=== PATIENT | female | born 1935 | race Caucasian/White ===

== ENCOUNTER → 2018-03-14 14:16 | Outpatient (CLI) | payer MEDICARE, OTHER, SELFPAY ==
[2018-03-14 14:43] LABS: Appearance Urine UA CLEAR; Bilirubin Urine UA NEGATIVE (NEGATIVE); Color Urine UA YELLOW; Glucose Urine UA NEGATIVE (Normal); Ketones Urine UA NEGATIVE (NEGATIVE); Leukocyte Esterase Urine UA 1+ (NEGATIVE); Nitrite Urine UA Negative (Negative); Occult Blood Urine UA TRACE-LYSED (Negative); Protein Urine UA NEGATIVE (Negative); Specific Gravity Urine UA 1.015 (1.000-1.035); Urobilinogen Urine UA 0.2 E.U./dL (0.2)
[2018-03-14 14:55] LABS: Bacteria Urine Many (>30); Culture Indicated Urine Specimen Cultured; RBC Urine 0-1/HPF (0-5/HPF); Squamous Epithelial Cell Urine 0-1 /HPF; WBC Urine 1-5/HPF (0-5/HPF)
== END ==
PROVIDERS: PCP Internal Medicine; Visit Provider Internal Medicine
DX: R35.0 Frequency of micturition (principal); R82.90 Unspecified abnormal findings in urine
CPT/HCPCS: 81001; 87077; 87086; 87186

== ENCOUNTER 2018-04-18 11:22 | Emergency (ER) | payer MEDICARE, OTHER, SELFPAY ==
[2018-04-18] VITALS (7 sets, daily range): BP systolic 149–169; BP diastolic 73–92; PULSE 63–83; RESP 12–20; TEMP 37; O2SAT 97–99; BMI 30.9
--- NOTE | 2018-04-18 11:30 | ED.CHESTPAIN ---
HPI - Chest Pain General Chief Complaint: Chest Pain Stated Complaint: Chest Pain Time Seen by Provider: 04/18/18 11:29 Source: patient and RN notes reviewed Mode of arrival: ambulatory Limitations: no limitations History of Present Illness HPI narrative: Patient is a 82-year-old female who per with chest discomfort. She said it started about 45 min ago lasted for about 30 min ago started while she was moving around doing [place] the house. It was nonradiating she denies any heart palpitations or shortness of breath. She does have a history atrial flutter she had 1 episode when she was in [place] she was cardioverted and put on Eliquis. She has no known history of coronary artery disease. She now is feeling much better. MD complaint: chest pain Onset (ago): minute(s) (45) Onset: during exertion Pain radiation: none Relieving factors: nothing Related Data Home Medications Medication Instructions Recorded Confirmed latanoprost [Xalatan] 1 gtt OP HS #0 12/28/11 04/18/18 acetaminophen 500 mg PO Q4H PRN 04/18/18 04/18/18 brimonidine 1 drp OPHTHALMIC (EYE) DIRECTED 04/18/18 04/18/18 clobetasol 1 applic TOPICAL BID 04/18/18 04/18/18 dorzolamide-timolol 1 drp OPHTHALMIC (EYE) DIRECTED 04/18/18 04/18/18 levothyroxine [Synthroid] 150 mcg PO QPM 04/18/18 04/18/18 Previous Rx's Medication Instructions Recorded pramipexole [Mirapex] 2 tab PO HS #180 tab 03/23/17 potassium chloride [Klor-Con M20] 2 tab PO QDAY #180 tab 08/01/17 apixaban [Eliquis] 5 mg PO BID #90 tab 09/18/17 metoprolol succinate 100 mg PO QDAY #90 ter 09/18/17 losartan 100 mg PO QDAY #90 tab 09/25/17 omeprazole 20 mg PO QDAY #90 cap 10/22/17 gabapentin 600 mg tablet 600 mg PO BEDTIME #270 tab 11/22/17 tramadol 50 mg tablet 50 - 100 mg PO TIDP PRN #180 tab 12/10/17 trazodone 100 mg PO HS #180 tab 12/10/17 nitrofurantoin 100 mg PO BID #14 cap 03/14/18 monohydrate/macrocrystals 100 mg capsule Allergies Allergy/AdvReac Type Severity Reaction Status Date / Time lisinopril [LISINOPRIL] Allergy Intermediate ANGIOEDEMA Verified 04/18/18 11:28 oxycodone Allergy Intermediate HIVES Verified 04/18/18 11:28 Penicillins [PENICILLINS] Allergy Intermediate RASH Verified 04/18/18 11:28 Sulfa (Sulfonamide Allergy Mild RASH Verified 04/18/18 11:28 Antibiotics) doxycycline AdvReac Mild PHOTOSENSIT Verified 04/18/18 11:28 IVITY PABA Allergy Intermediate LIP Uncoded 04/18/18 11:28 SWELLING (IN MANY SUN BLOCKS) Review of Systems Review of Systems All systems reviewed & are unremarkable except as noted in HPI and below Constitutional Denies chills, Denies fever(s), Denies lethargy and Denies weakness Eyes Denies change in vision, Denies eye discharge, Denies irritation and Denies loss of vision Cardiovascular Reports as per HPI, Denies dyspnea and Denies dyspnea on exertion Respiratory Denies cough, Denies dyspnea, Denies dyspnea on exertion and Denies wheezing Gastrointestinal Gastrointestinal: Denies abdominal pain, Denies change in bowel habits, Denies diarrhea, Denies nausea and Denies vomiting Genitourinary Denies hematuria, Denies flank pain, Denies urinary incontinence and Denies urinary urgency Musculoskeletal Denies back pain, Denies muscle weakness, Denies numbness and Denies tingling Integumentary/Breasts Denies pruritus, Denies erythema, Denies rash and Denies wounds Neurologic Denies loss of vision, Denies numbness, Denies tingling and Denies weakness Allergic/Immunologic Denies wheezing PFSH Medical History Mixed hyperlipidemia (Chronic 09/02/12) Acquired hypothyroidism (Chronic 05/04/11) Obstructive sleep apnea syndrome (Chronic 05/04/11) Glaucoma (Chronic 05/04/11) Typical atrial flutter (Chronic 07/31/17) Hypertension (Chronic) Surgical History History of knee replacement (Resolved) History of nephrectomy (Resolved) History of total mastectomy (Resolved 1998) Status post laminectomy (Resolved) Status post vaginal hysterectomy (Resolved) Family History Sister Family history of breast cancer Sister Family history of colon cancer Sister Family history of ovarian cancer Family/Other Family history of colon cancer Social History marital status: number of children: 3 household members: spouse lives independently: Yes caregiver/support person: Yes (Clay Artist/Garderner) housing: house pets and animals: Yes education level: college (4+ years) occupational status: other (Retired) 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[employer] j[employer]ana/taoist: None travel history: over 6 months ago ([place], [place]) 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, 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) Smoking Status: Never smoker Tobacco: How many years used: 0 quit status: quit date established (Never Started) second hand exposure: No alcohol intake: current (Glass of wine at dinner on occasion.) substance use type: does not use Exam Initial Vital Signs Initial Vital Signs: Vital Signs Temperature 98.6 F 04/18/18 11:28 Pulse Rate 78 04/18/18 11:28 Respiratory Rate 20 04/18/18 11:28 Blood Pressure 159/84 H 04/18/18 11:28 Pulse Oximetry 97 04/18/18 11:28 GENERAL: Alert pleasant elderly female no acute distress HEENT: Head atraumatic,EOMI, pupils reactive, face symmetric, [moist] mucous membranes CARDIOVASCULAR: Regular rate and rhythm without murmurs, rubs or gallops. RESPIRATORY: Breath sounds equal bilaterally, no wheezes rales or rhonchi. ABDOMEN: Soft, nontender. Normoactive bowel sounds all 4 quadrants. No guarding or rebound.ess EXTREMITIES: Normal range of motion, no clubbing or edema. Neurovascularly intact NEUROLOGICAL: Alert and oriented x4.Normal gait and speech. Cranial nerves II through XII grossly intact. SKIN: Warm, dry, no laceration, no petechiae, no rashes or lesions. Scores HEART Score Heart Score history: Slightly Suspicious Heart Score EKG: Normal Heart Score Age: > or = 65 years old Heart Score risk factors: 1-2 risk factors Heart Score troponin: < or = to normal limit Heart Score Total: 3 Course Orders Ordered: ED Orders 04/18/18 11:30 EKG-12 Lead Routine 04/18/18 11:45 Complete Blood Count AUTO DIFF Stat Comprehensive Metabolic Panel Stat Lipase Stat Partial Thromboplastin Time Stat Prothrombin Time INR Stat Troponin & CK Cardiac Panel Stat 04/18/18 11:56 XR chest 1V Stat 04/18/18 14:00 Troponin I Stat Vital Signs - 8 hr 04/18/18 11:28 04/18/18 12:00 04/18/18 12:34 Temperature 98.6 F Pulse Rate 78 83 63 Respiratory Rate 20 20 18 Blood Pressure 159/84 H Blood Pressure [Right Arm] 160/86 H 149/73 H Pulse Oximetry 97 97 97 04/18/18 13:00 04/18/18 13:38 04/18/18 14:00 Temperature Pulse Rate 65 66 65 Respiratory Rate 20 12 15 Blood Pressure Blood Pressure [Right Arm] 152/81 H 165/86 H 169/92 H Pulse Oximetry 99 99 98 04/18/18 14:41 Temperature Pulse Rate 71 Respiratory Rate 13 Blood Pressure Blood Pressure [Right Arm] 168/86 H Pulse Oximetry 98 MDM - Chest Pain Lab Data Attestation: I reviewed the patient's lab results. Result diagrams: 04/18/18 11:45 04/18/18 11:45 Lab Results 04/18/18 04/18/18 04/18/18 Range/Units 11:45 11:45 11:45 WBC 6.7 (4.5-11.0) X10^3/uL RBC 4.62 (4.0-5.2) X10^6/uL Hgb 13.4 (12.0-16.0) g/dL Hct 40.4 (36-46) % MCV 87.4 (80-100) fL MCH 28.9 (26-34) PG MCHC 33.1 (30-36) % RDW 15.4 H (11.6-14.8) % Plt Count 108 L (150-400) X10^3/uL Neut % (Auto) 66.2 (50-75) % Lymph % (Auto) 25.7 (25-40) % Dickey % (Auto) 5.6 (3-14) % Eos % (Auto) 1.9 L (2-4) % Baso % (Auto) 0.6 (0-2) % Neut # (Auto) 4400 (9451-2380) /uL PT 15.7 H (10.1-12.7) SECONDS INR 1.4 H (0.9-1.3) APTT 41 H (26.4-36.2) SECONDS Sodium 143 (137-145) mmol/L Potassium 4.0 (3.4-5.1) mmol/L Chloride 105 (98-107) mmol/L Carbon Dioxide 29 (22-32) mmol/L BUN 22 H (7-17) mg/dL Creatinine 0.80 (0.52-1.04) mg/dL Estimated GFR > 60.0 (>60) mL/min BUN/Creatinine Ratio 27.5 H (6-22) Glucose 110 (80-110) mg/dL Calcium 9.8 (8.4-10.2) mg/dL Total Bilirubin 0.5 (0.2-1.3) mg/dL AST 20 (14-36) IU/L ALT 22 (9-52) IU/L Alkaline Phosphatase 78 (38-126) U/L Total Creatine Kinase 27 L (30-135) U/L CK-MB (CK-2) TNP CK-MB (CK-2) Rel Index TNP Troponin I < 0.012 (0.01-0.034) ng/mL Total Protein 6.5 (6.3-8.2) g/dL Albumin 4.0 (3.5-5.0) g/dL Globulin 2.5 (1.7-4.1) g/dL Albumin/Globulin Ratio 1.6 (1.0-2.8) Lipase 44 (23-300) U/L 04/18/18 Range/Units 14:00 WBC (4.5-11.0) X10^3/uL RBC (4.0-5.2) X10^6/uL Hgb (12.0-16.0) g/dL Hct (36-46) % MCV (80-100) fL MCH (26-34) PG MCHC (30-36) % RDW (11.6-14.8) % Plt Count (150-400) X10^3/uL Neut % (Auto) (50-75) % Lymph % (Auto) (25-40) % Dickey % (Auto) (3-14) % Eos % (Auto) (2-4) % Baso % (Auto) (0-2) % Neut # (Auto) (1792-3248) /uL PT (10.1-12.7) SECONDS INR (0.9-1.3) APTT (26.4-36.2) SECONDS Sodium (137-145) mmol/L Potassium (3.4-5.1) mmol/L Chloride (98-107) mmol/L Carbon Dioxide (22-32) mmol/L BUN (7-17) mg/dL Creatinine (0.52-1.04) mg/dL Estimated GFR (>60) mL/min BUN/Creatinine Ratio (6-22) Glucose (80-110) mg/dL Calcium (8.4-10.2) mg/dL Total Bilirubin (0.2-1.3) mg/dL AST (14-36) IU/L ALT (9-52) IU/L Alkaline Phosphatase (38-126) U/L Total Creatine Kinase (30-135) U/L CK-MB (CK-2) CK-MB (CK-2) Rel Index Troponin I < 0.012 (0.01-0.034) ng/mL Total Protein (6.3-8.2) g/dL Albumin (3.5-5.0) g/dL Globulin (1.7-4.1) g/dL Albumin/Globulin Ratio (1.0-2.8) Lipase (23-300) U/L Urine Dip Bedside Urine Glucose Negative Bedside Urine Bilirubin - Negative Bedside Urine Ketone - Negative Urine Specific Vendor 1.015 Bedside Urine Occult Blood - Negative Bedside Urine pH 6.5 Bedside Urine Protein - Negative Bedside Urine Urobilinogen - Negative Bedside Urine Nitrite - Negative Bedside Urine Leukocytes - Negative Esterase Imaging Data Chest x-ray: Radiologist's impression: PROCEDURE: XR CHEST 1V INDICATIONS: chest pain TECHNIQUE: One view of the chest was acquired. COMPARISON: [facility], CT, ABDOMEN/PELVIS WITH CONTRAST, 01/19/2011, 9:48. [facility], , CHEST 2 VIEW, 09/10/2016, 17:03. [facility], , CHEST 2 VIEW, 01/18/2017, 12:19. FINDINGS: Surgical changes and devices: Right perihilar clips and upper abdominal clips are seen. Left axillary clips are seen. Lungs and pleura: An incomplete inspiratory result is noted, causing a crowded appearance to the lung markings. No focal infiltrates are seen. No pneumothorax or significant pleural effusions are seen. Mediastinum: Mediastinal contours appear normal. Heart size is mildly enlarged. Bones and chest wall: No suspicious bony lesions. Mild dextroconvex scoliotic curvature is seen. Age-appropriate bony degenerative changes are seen. Overlying soft tissues appear unremarkable. IMPRESSION: Low lung volumes, without an acute plain film abnormality detected. Postoperative and degenerative changes. Dictated by: Sameer Saavedra M.D. on 04/18/2018 at 11:13 ECG Data Attestation: I personally reviewed and interpreted this ECG as follows: Prior ECG tracings: available for review Interpretation: Normal sinus rhythm rate 81 IL interval 251, QRS 88 QTC 410 AV block similar to previous MDM Narrative Medical decision making narrative: The patient has been chest pain-free in the ED for 3 hr she has 2-troponins. His history is slightly suspicious risk factors of age. I discussed with her that she may require stress test which was not done today. She will follow up with her primary care provider. She is wanting to go home. PE was considered but she is on Eliquis, unlikely Discharge Plan Departure Patient Disposition: Home Clinical Impression: Atypical chest pain Discharge Date/Time: 04/18/18 15:00 Instructions: DI for Atypical Chest Pain Activity Restrictions/Additional Instructions: *You have been diagnosed with atypical chest pain *What to do: May require further cardiac evaluation with your primary doctor, you may need a stress test and/or echocardiogram and these were not done in the emergency department *Continue to take medications as directed *Follow up with your primary care provider in 2-3 days *Return to ER if you should have worsening chest pain, shortness of breath heart palpitations or any new, worsening or concerning symptoms Prescriptions: No Action latanoprost [Xalatan] 0.005 % drops 1 gtt OP HS Qty: 0 RF: 0 pramipexole [Mirapex] 0.5 MG tablet 2 tab PO HS Qty: 180 RF: 3 potassium chloride [Klor-Con M20] 20 MEQ tablet,ER particles/crystals 2 tab PO QDAY Qty: 180 RF: 3 metoprolol succinate 100 MG tablet extended release 24 hr 100 mg PO QDAY Qty: 90 RF: 3 apixaban [Eliquis] 5 MG tablet 5 mg PO BID Qty: 90 RF: 3 losartan 100 MG tablet 100 mg PO QDAY Qty: 90 RF: 3 omeprazole 20 MG capsule,delayed release(DR/EC) 20 mg PO QDAY Qty: 90 RF: 3 trazodone 50 mg tablet 100 mg PO HS Qty: 180 RF: 3 tramadol 50 mg tablet 50 - 100 mg PO TIDP PRN (Reason: pain) Qty: 180 RF: 1 nitrofurantoin monohyd/m-cryst 100 mg capsule 100 mg PO BID Qty: 14 RF: 0 gabapentin [Neurontin] 600 mg tablet 600 mg PO BEDTIME Qty: 270 RF: 3 brimonidine 0.2 % drops 1 drp ophthalmic (eye) DIRECTED RF: 0 dorzolamide-timolol 22.3-6.8 mg/mL drops 1 drp ophthalmic (eye) DIRECTED RF: 0 acetaminophen 500 mg Tablet 500 mg PO Q4H PRN (Reason: pain) RF: 0 levothyroxine [Synthroid] 150 MCG tablet 150 mcg PO QPM RF: 0 clobetasol 0.05 % solution 1 applic Topical BID RF: 0 Referrals: Vincenzo Talamantes MD [Primary Care Provider] -
--- NOTE | 2018-04-18 11:56 | DI.RAD.S_ITS ---
PROCEDURE: XR CHEST 1V INDICATIONS: chest pain TECHNIQUE: One view of the chest was acquired. COMPARISON: [facility], CT, ABDOMEN/PELVIS WITH CONTRAST, 01/19/2011, 9:48. [facility], CR, CHEST 2 VIEW, 09/10/2016, 17:03. [facility], CR, CHEST 2 VIEW, 01/18/2017, 12:19. FINDINGS: Surgical changes and devices: Right perihilar clips and upper abdominal clips are seen. Left axillary clips are seen. Lungs and pleura: An incomplete inspiratory result is noted, causing a crowded appearance to the lung markings. No focal infiltrates are seen. No pneumothorax or significant pleural effusions are seen. Mediastinum: Mediastinal contours appear normal. Heart size is mildly enlarged. Bones and chest wall: No suspicious bony lesions. Mild dextroconvex scoliotic curvature is seen. Age-appropriate bony degenerative changes are seen. Overlying soft tissues appear unremarkable. IMPRESSION: Low lung volumes, without an acute plain film abnormality detected. Postoperative and degenerative changes. Dictated by: Sameer Saavedra M.D. on 04/18/2018 at 11:13 Approved by: Sameer Saavedra M.D. on 04/18/2018 at 11:15
[2018-04-18 12:13] LABS: INR 1.4 (0.9-1.3); Prothrombin Time 15.7 SECONDS (10.1-12.7)
[2018-04-18 12:16] LABS: PTT Partial Thromboplastin Tim 41 SECONDS (26.4-36.2)
[2018-04-18 12:17] LABS: Add Manual Diff / Slide Review NO; Basophils Percent Auto 0.6 % (0-2); Eosinophils Percent Auto 1.9 % (2-4); Hematocrit 40.4 % (36-46); Hemoglobin 13.4 g/dL (12.0-16.0); Lymphocytes Percent Auto 25.7 % (25-40); Mean Corpuscular HGB Conc 33.1 % (30-36); Mean Corpuscular Hemoglobin 28.9 PG (26-34); Mean Corpuscular Volume 87.4 fL (80-100); Monocytes Percent Auto 5.6 % (3-14); Neutrophils Absolute Auto 4400 /uL (3000-5900); Neutrophils Percent Auto 66.2 % (50-75); Platelet Count 108 X10^3/uL (150-400); Red Blood Cell Count 4.62 X10^6/uL (4.0-5.2); Red Cell Distribution Width 15.4 % (11.6-14.8); White Blood Cell Count 6.7 X10^3/uL (4.5-11.0)
[2018-04-18 12:23] LABS: Alanine Aminotransferase 22 IU/L (9-52); Albumin Globulin Ratio 1.6 (1.0-2.8); Alkaline Phosphatase 78 U/L (38-126); Aspartate Aminotransferase 20 IU/L (14-36); BUN Creatinine Ratio 27.5 (6-22); Bilirubin Total 0.5 mg/dL (0.2-1.3); Blood Urea Nitrogen 22 mg/dL (7-17); Calcium 9.8 mg/dL (8.4-10.2); Carbon Dioxide 29 mmol/L (22-32); Chloride 105 mmol/L (98-107); Creatine Kinase 27 U/L (30-135); Estimated Glomerular Filt Rate > 60.0 mL/min (>60); Globulin 2.5 g/dL (1.7-4.1); Glucose 110 mg/dL (80-110); HEMOLYSIS < 15 (0-50); Lipase 44 U/L (23-300); Sodium 143 mmol/L (137-145); Total Protein 6.5 g/dL (6.3-8.2)
[2018-04-18 12:38] LABS: Troponin I < 0.012 ng/mL (0.01-0.034)
[2018-04-18 14:29] LABS: Troponin I < 0.012 ng/mL (0.01-0.034)
--- NOTE | 2018-04-18 14:49 | ED_ITS ---
HPI - Chest Pain General Chief Complaint: Chest Pain Stated Complaint: Chest Pain Time Seen by Provider: 04/18/18 11:29 Source: patient and RN notes reviewed Mode of arrival: ambulatory Limitations: no limitations History of Present Illness HPI narrative: Patient is a 82-year-old female who per with chest discomfort. She said it started about 45 min ago lasted for about 30 min ago started while she was moving around doing [place] the house. It was nonradiating she denies any heart palpitations or shortness of breath. She does have a history atrial flutter she had 1 episode when she was in [place] she was cardioverted and put on Eliquis. She has no known history of coronary artery disease. She now is feeling much better. MD complaint: chest pain Onset (ago): minute(s) (45) Onset: during exertion Pain radiation: none Relieving factors: nothing Related Data Home Medications Medication Instructions Recorded Confirmed latanoprost [Xalatan] 1 gtt OP HS #0 12/28/11 04/18/18 acetaminophen 500 mg PO Q4H PRN 04/18/18 04/18/18 brimonidine 1 drp OPHTHALMIC (EYE) DIRECTED 04/18/18 04/18/18 clobetasol 1 applic TOPICAL BID 04/18/18 04/18/18 dorzolamide-timolol 1 drp OPHTHALMIC (EYE) DIRECTED 04/18/18 04/18/18 levothyroxine [Synthroid] 150 mcg PO QPM 04/18/18 04/18/18 Previous Rx's Medication Instructions Recorded pramipexole [Mirapex] 2 tab PO HS #180 tab 03/23/17 potassium chloride [Klor-Con M20] 2 tab PO QDAY #180 tab 08/01/17 apixaban [Eliquis] 5 mg PO BID #90 tab 09/18/17 metoprolol succinate 100 mg PO QDAY #90 ter 09/18/17 losartan 100 mg PO QDAY #90 tab 09/25/17 omeprazole 20 mg PO QDAY #90 cap 10/22/17 gabapentin 600 mg tablet 600 mg PO BEDTIME #270 tab 11/22/17 tramadol 50 mg tablet 50 - 100 mg PO TIDP PRN #180 tab 12/10/17 trazodone 100 mg PO HS #180 tab 12/10/17 nitrofurantoin 100 mg PO BID #14 cap 03/14/18 monohydrate/macrocrystals 100 mg capsule Allergies Allergy/AdvReac Type Severity Reaction Status Date / Time lisinopril [LISINOPRIL] Allergy Intermediate ANGIOEDEMA Verified 04/18/18 11:28 oxycodone Allergy Intermediate HIVES Verified 04/18/18 11:28 Penicillins [PENICILLINS] Allergy Intermediate RASH Verified 04/18/18 11:28 Sulfa (Sulfonamide Allergy Mild RASH Verified 04/18/18 11:28 Antibiotics) doxycycline AdvReac Mild PHOTOSENSIT Verified 04/18/18 11:28 IVITY PABA Allergy Intermediate LIP Uncoded 04/18/18 11:28 SWELLING (IN MANY SUN BLOCKS) Review of Systems Review of Systems All systems reviewed & are unremarkable except as noted in HPI and below Constitutional Denies chills, Denies fever(s), Denies lethargy and Denies weakness Eyes Denies change in vision, Denies eye discharge, Denies irritation and Denies loss of vision Cardiovascular Reports as per HPI, Denies dyspnea and Denies dyspnea on exertion Respiratory Denies cough, Denies dyspnea, Denies dyspnea on exertion and Denies wheezing Gastrointestinal Gastrointestinal: Denies abdominal pain, Denies change in bowel habits, Denies diarrhea, Denies nausea and Denies vomiting Genitourinary Denies hematuria, Denies flank pain, Denies urinary incontinence and Denies urinary urgency Musculoskeletal Denies back pain, Denies muscle weakness, Denies numbness and Denies tingling Integumentary/Breasts Denies pruritus, Denies erythema, Denies rash and Denies wounds Neurologic Denies loss of vision, Denies numbness, Denies tingling and Denies weakness Allergic/Immunologic Denies wheezing PFSH Medical History Mixed hyperlipidemia (Chronic 09/02/12) Acquired hypothyroidism (Chronic 05/04/11) Obstructive sleep apnea syndrome (Chronic 05/04/11) Glaucoma (Chronic 05/04/11) Typical atrial flutter (Chronic 07/31/17) Hypertension (Chronic) Surgical History History of knee replacement (Resolved) History of nephrectomy (Resolved) History of total mastectomy (Resolved 1998) Status post laminectomy (Resolved) Status post vaginal hysterectomy (Resolved) Family History Sister Family history of breast cancer Sister Family history of colon cancer Sister Family history of ovarian cancer Family/Other Family history of colon cancer Social History marital status: number of children: 3 household members: spouse lives independently: Yes caregiver/support 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: Yes (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[employer]) housing: house pets and animals: Yes education level: college (4+ years) occupational status: other (Retired) 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 jordana/anglican: None travel history: over 6 months ago ([place], [place]) 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, 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) Smoking Status: Never smoker Tobacco: How many years used: 0 quit status: quit date established (Never Started) second hand exposure: No alcohol intake: current (Glass of wine at dinner on occasion.) substance use type: does not use Exam Initial Vital Signs Initial Vital Signs: Vital Signs Temperature 98.6 F 04/18/18 11:28 Pulse Rate 78 04/18/18 11:28 Respiratory Rate 20 04/18/18 11:28 Blood Pressure 159/84 H 04/18/18 11:28 Pulse Oximetry 97 04/18/18 11:28 GENERAL: Alert pleasant elderly female no acute distress HEENT: Head atraumatic,EOMI, pupils reactive, face symmetric, [moist] mucous membranes CARDIOVASCULAR: Regular rate and rhythm without murmurs, rubs or gallops. RESPIRATORY: Breath sounds equal bilaterally, no wheezes rales or rhonchi. ABDOMEN: Soft, nontender. Normoactive bowel sounds all 4 quadrants. No guarding or rebound.ess EXTREMITIES: Normal range of motion, no clubbing or edema. Neurovascularly intact NEUROLOGICAL: Alert and oriented x4.Normal gait and speech. Cranial nerves II through XII grossly intact. SKIN: Warm, dry, no laceration, no petechiae, no rashes or lesions. Scores HEART Score Heart Score history: Slightly Suspicious Heart Score EKG: Normal Heart Score Age: > or = 65 years old Heart Score risk factors: 1-2 risk factors Heart Score troponin: < or = to normal limit Heart Score Total: 3 Course Orders Ordered: ED Orders 04/18/18 11:30 EKG-12 Lead Routine 04/18/18 11:45 Complete Blood Count AUTO DIFF Stat Comprehensive Metabolic Panel Stat Lipase Stat Partial Thromboplastin Time Stat Prothrombin Time INR Stat Troponin & CK Cardiac Panel Stat 04/18/18 11:56 XR chest 1V Stat 04/18/18 14:00 Troponin I Stat Vital Signs - 8 hr 04/18/18 11:28 04/18/18 12:00 04/18/18 12:34 Temperature 98.6 F Pulse Rate 78 83 63 Respiratory Rate 20 20 18 Blood Pressure 159/84 H Blood Pressure [Right Arm] 160/86 H 149/73 H Pulse Oximetry 97 97 97 04/18/18 13:00 04/18/18 13:38 04/18/18 14:00 Temperature Pulse Rate 65 66 65 Respiratory Rate 20 12 15 Blood Pressure Blood Pressure [Right Arm] 152/81 H 165/86 H 169/92 H Pulse Oximetry 99 99 98 04/18/18 14:41 Temperature Pulse Rate 71 Respiratory Rate 13 Blood Pressure Blood Pressure [Right Arm] 168/86 H Pulse Oximetry 98 MDM - Chest Pain Lab Data Attestation: I reviewed the patient's lab results. Result diagrams: 04/18/18 11:45 04/18/18 11:45 Lab Results 04/18/18 04/18/18 04/18/18 Range/Units 11:45 11:45 11:45 WBC 6.7 (4.5-11.0) X10^3/uL RBC 4.62 (4.0-5.2) X10^6/uL Hgb 13.4 (12.0-16.0) g/dL Hct 40.4 (36-46) % MCV 87.4 (80-100) fL MCH 28.9 (26-34) PG MCHC 33.1 (30-36) % RDW 15.4 H (11.6-14.8) % Plt Count 108 L (150-400) X10^3/uL Neut % (Auto) 66.2 (50-75) % Lymph % (Auto) 25.7 (25-40) % [place] % (Auto) 5.6 (3-14) % Eos % (Auto) 1.9 L (2-4) % Baso % (Auto) 0.6 (0-2) % Neut # (Auto) 4400 (8947-0465) /uL PT 15.7 H (10.1-12.7) SECONDS INR 1.4 H (0.9-1.3) APTT 41 H (26.4-36.2) SECONDS Sodium 143 (137-145) mmol/L Potassium 4.0 (3.4-5.1) mmol/L Chloride 105 (98-107) mmol/L Carbon Dioxide 29 (22-32) mmol/L BUN 22 H (7-17) mg/dL Creatinine 0.80 (0.52-1.04) mg/dL Estimated GFR > 60.0 (>60) mL/min BUN/Creatinine Ratio 27.5 H (6-22) Glucose 110 (80-110) mg/dL Calcium 9.8 (8.4-10.2) mg/dL Total Bilirubin 0.5 (0.2-1.3) mg/dL AST 20 (14-36) IU/L ALT 22 (9-52) IU/L Alkaline Phosphatase 78 (38-126) U/L Total Creatine Kinase 27 L (30-135) U/L CK-MB (CK-2) TNP CK-MB (CK-2) Rel Index TNP Troponin I < 0.012 (0.01-0.034) ng/mL Total Protein 6.5 (6.3-8.2) g/dL Albumin 4.0 (3.5-5.0) g/dL Globulin 2.5 (1.7-4.1) g/dL Albumin/Globulin Ratio 1.6 (1.0-2.8) Lipase 44 (23-300) U/L 04/18/18 Range/Units 14:00 WBC (4.5-11.0) X10^3/uL RBC (4.0-5.2) X10^6/uL Hgb (12.0-16.0) g/dL Hct (36-46) % MCV (80-100) fL MCH (26-34) PG MCHC (30-36) % RDW (11.6-14.8) % Plt Count (150-400) X10^3/uL Neut % (Auto) (50-75) % Lymph % (Auto) (25-40) % [place] % (Auto) (3-14) % Eos % (Auto) (2-4) % Baso % (Auto) (0-2) % Neut # (Auto) (8747-6259) /uL PT (10.1-12.7) SECONDS INR (0.9-1.3) APTT (26.4-36.2) SECONDS Sodium (137-145) mmol/L Potassium (3.4-5.1) mmol/L Chloride (98-107) mmol/L Carbon Dioxide (22-32) mmol/L BUN (7-17) mg/dL Creatinine (0.52-1.04) mg/dL Estimated GFR (>60) mL/min BUN/Creatinine Ratio (6-22) Glucose (80-110) mg/dL Calcium (8.4-10.2) mg/dL Total Bilirubin (0.2-1.3) mg/dL AST (14-36) IU/L ALT (9-52) IU/L Alkaline Phosphatase (38-126) U/L Total Creatine Kinase (30-135) U/L CK-MB (CK-2) CK-MB (CK-2) Rel Index Troponin I < 0.012 (0.01-0.034) ng/mL Total Protein (6.3-8.2) g/dL Albumin (3.5-5.0) g/dL Globulin (1.7-4.1) g/dL Albumin/Globulin Ratio (1.0-2.8) Lipase (23-300) U/L Urine Dip Bedside Urine Glucose Negative Bedside Urine Bilirubin - Negative Bedside Urine Ketone - Negative Urine Specific [place] 1.015 Bedside Urine Occult Blood - Negative Bedside Urine pH 6.5 Bedside Urine Protein - Negative Bedside Urine Urobilinogen - Negative Bedside Urine Nitrite - Negative Bedside Urine Leukocytes - Negative Esterase Imaging Data Chest x-ray: Radiologist's impression: PROCEDURE: XR CHEST 1V INDICATIONS: chest pain TECHNIQUE: One view of the chest was acquired. COMPARISON: [facility], CT, ABDOMEN/PELVIS WITH CONTRAST, 01/19/2011, 9: 48. [facility], , CHEST 2 VIEW, 09/10/2016, 17:03. [facility], , CHEST 2 VIEW , 01/18/2017, 12:19. FINDINGS: Surgical changes and devices: Right perihilar clips and upper abdominal clips are seen. Left axillary clips are seen. Lungs and pleura: An incomplete inspiratory result is noted, causing a crowded appearance to the lung markings. No focal infiltrates are seen. No pneumothorax or significant pleural effusions are seen. Mediastinum: Mediastinal contours appear normal. Heart size is mildly enlarged. Bones and chest wall: No suspicious bony lesions. Mild dextroconvex scoliotic curvature is seen. Age-appropriate bony degenerative changes are seen. Overlying soft tissues appear unremarkable. IMPRESSION: Low lung volumes, without an acute plain film abnormality detected. Postoperative and degenerative changes. Dictated by: Sameer Saavedra M.D. on 04/18/2018 at 11:13 ECG Data Attestation: I personally reviewed and interpreted this ECG as follows: Prior ECG tracings: available for review Interpretation: Normal sinus rhythm rate 81 MI interval 251, QRS 88 QTC 410 AV block similar to previous MDM Narrative Medical decision making narrative: The patient has been chest pain-free in the ED for 3 hr she has 2-troponins. His history is slightly suspicious risk factors of age. I discussed with her that she may require stress test which was not done today. She will follow up with her primary care provider. She is wanting to go home. PE was considered but she is on Eliquis, unlikely Discharge Plan Departure Patient Disposition: Home Clinical Impression: Atypical chest pain Discharge Date/Time: 04/18/18 15:00 Instructions: DI for Atypical Chest Pain Activity Restrictions/Additional Instructions: *You have been diagnosed with atypical chest pain *What to do: May require further cardiac evaluation with your primary doctor, you may need a stress test and/or echocardiogram and these were not done in the emergency department *Continue to take medications as directed *Follow up with your primary care provider in 2-3 days *Return to ER if you should have worsening chest pain, shortness of breath heart palpitations or any new, worsening or concerning symptoms Prescriptions: No Action latanoprost [Xalatan] 0.005 % drops 1 gtt OP HS Qty: 0 RF: 0 pramipexole [Mirapex] 0.5 MG tablet 2 tab PO HS Qty: 180 RF: 3 potassium chloride [Klor-Con M20] 20 MEQ tablet,ER particles/crystals 2 tab PO QDAY Qty: 180 RF: 3 metoprolol succinate 100 MG tablet extended release 24 hr 100 mg PO QDAY Qty: 90 RF: 3 apixaban [Eliquis] 5 MG tablet 5 mg PO BID Qty: 90 RF: 3 losartan 100 MG tablet 100 mg PO QDAY Qty: 90 RF: 3 omeprazole 20 MG capsule,delayed release(DR/EC) 20 mg PO QDAY Qty: 90 RF: 3 trazodone 50 mg tablet 100 mg PO HS Qty: 180 RF: 3 tramadol 50 mg tablet 50 - 100 mg PO TIDP PRN (Reason: pain) Qty: 180 RF: 1 nitrofurantoin monohyd/m-cryst 100 mg capsule 100 mg PO BID Qty: 14 RF: 0 gabapentin [Neurontin] 600 mg tablet 600 mg PO BEDTIME Qty: 270 RF: 3 brimonidine 0.2 % drops 1 drp ophthalmic (eye) DIRECTED RF: 0 dorzolamide-timolol 22.3-6.8 mg/mL drops 1 drp ophthalmic (eye) DIRECTED RF: 0 acetaminophen 500 mg Tablet 500 mg PO Q4H PRN (Reason: pain) RF: 0 levothyroxine [Synthroid] 150 MCG tablet 150 mcg PO QPM RF: 0 clobetasol 0.05 % solution 1 applic Topical BID RF: 0 Referrals: Vincenzo Talamantes MD [Primary Care Provider] -
== END 2018-04-18 15:00 | disposition home or self-care (01) ==
PROVIDERS: Emergency Provider Emergency Medicine; PCP Internal Medicine
DX: R07.89 Other chest pain (principal)
CPT/HCPCS: 36415; 36591; 71045; 80053; 81003; 82550; 83690; 84484; 85025; 85610; 85730; 93005; 93041; 99284; 99285

== ENCOUNTER 2018-07-09 09:04 | Emergency (ER) | payer MEDICARE, OTHER, SELFPAY ==
[2018-07-09 09:05] VITALS: BP 115/70; PULSE 88; RESP 22; TEMP 36.8; O2SAT 94
--- NOTE | 2018-07-09 09:16 | DI.RAD.S_ITS ---
PROCEDURE: XR CHEST 1V INDICATIONS: chest pain TECHNIQUE: One view of the chest was acquired. COMPARISON: [facility], CHEST 1 VIEW, 12/28/2011, 9:05. [facility], CHEST 2 VIEW, 04/14/2015, 15:17. [facility], CHEST 2 VIEW, 01/18/2017, 12:19. [facility], XR CHEST 1V, 04/18/2018, 12:01. FINDINGS: Surgical changes and devices: None. Lungs and pleura: Aeration of the lungs is similar to the prior study. Focal linear area of increased attenuation is identified along the lateral left lung base, which is more conspicuous on the current exam, compared to exams dating back to 2011, which may represent an area of scar versus atelectasis.. No focal consolidation, large effusion or pneumothorax is evident. Mediastinum: Mediastinal contours appear normal. The heart is borderline enlarged. There is aortic atherosclerosis. Mitral valve calcifications are noted. Bones and chest wall: No suspicious bony lesions. Moderate dextroscoliosis of the thoracic spine is similar to the prior exam. Overlying soft tissues appear unremarkable. IMPRESSION: 1. Stable chest. No acute cardiopulmonary process is evident. 2. Linear area of increased attenuation along the lateral aspect of the left lung base may represent scarring versus atelectasis; however, the possibility of a developing pulmonary nodule is difficult to exclude. Please consider chest CT for further evaluation, which may be performed on a nonemergent basis. Dictated by: Neil Pena M.D. on 07/09/2018 at 10:27 Approved by: Neil Pena M.D. on 07/09/2018 at 10:32
[2018-07-09 09:29] LABS: Add Manual Diff / Slide Review NO; Basophils Percent Auto 0.8 % (0-2); Eosinophils Percent Auto 2.6 % (2-4); Hematocrit 44.5 % (36-46); Hemoglobin 14.7 g/dL (12.0-16.0); Mean Corpuscular HGB Conc 32.9 % (30-36); Mean Corpuscular Hemoglobin 29.2 PG (26-34); Mean Corpuscular Volume 88.7 fL (80-100); Monocytes Percent Auto 7.1 % (3-14); Neutrophils Absolute Auto 4300 /uL (1500-7000); Neutrophils Percent Auto 64.5 % (50-75); Platelet Count 142 X10^3/uL (150-400); Red Blood Cell Count 5.02 X10^6/uL (4.0-5.2); Red Cell Distribution Width 14.2 % (11.6-14.8); White Blood Cell Count 6.6 X10^3/uL (4.5-11.0)
[2018-07-09 09:35] LABS: INR 1.2 (0.9-1.3); Prothrombin Time 13.8 SECONDS (10.1-12.7)
[2018-07-09 09:38] LABS: PTT Partial Thromboplastin Tim 42 SECONDS (26.4-36.2)
[2018-07-09] MEDS: SODIUM CHLORIDE 0.9% 1,000 ML 150 ML IV (09:39)
[2018-07-09 09:40] LABS: Alanine Aminotransferase 22 IU/L (9-52); Albumin 4.4 g/dL (3.5-5.0); Albumin Globulin Ratio 1.6 (1.0-2.8); Alkaline Phosphatase 78 U/L (38-126); Aspartate Aminotransferase 21 IU/L (14-36); BUN Creatinine Ratio 18.9 (6-22); Bilirubin Total 0.6 mg/dL (0.2-1.3); Blood Urea Nitrogen 17 mg/dL (7-17); Calcium 9.8 mg/dL (8.4-10.2); Carbon Dioxide 25 mmol/L (22-32); Chloride 100 mmol/L (98-107); Creatine Kinase 20 U/L (30-135); Estimated Glomerular Filt Rate 59.7 mL/min (>60); Globulin 2.7 g/dL (1.7-4.1); Glucose 134 mg/dL (80-110); HEMOLYSIS < 15 (0-50); Lipase 50 U/L (23-300); Sodium 140 mmol/L (137-145); Total Protein 7.1 g/dL (6.3-8.2)
--- NOTE | 2018-07-09 09:44 | ED.ARRPALP ---
HPI - Arrhythmia/Palpitations General Chief Complaint: Arrhythmia/Palpitations Stated Complaint: heart flutter Time Seen by Provider: 07/09/18 09:15 Source: patient Mode of arrival: ambulatory Limitations: no limitations History of Present Illness HPI narrative: Patient is an 83-year-old female who presents with heart palpitations and and dizziness. She has a history of atrial fibrillation or MAT. she is currently being treated for upper respiratory like symptoms with keflex. She has had cough and congestion for the last 10 days. No fever or chills. She does have a cough with deep breathing. She does have a productive cough. She denies any chest pain. She overall is feeling much better than she did this morning. Dr. Talamantes her PCP it is in the ED to see and evaluate her. Related Data Home Medications Medication Instructions Recorded Confirmed latanoprost [Xalatan] 1 gtt OP BEDTIME #0 12/28/11 07/09/18 acetaminophen 500 mg PO Q4H PRN 04/18/18 07/09/18 brimonidine 1 drp OPHTHALMIC (EYE) DIRECTED 04/18/18 07/09/18 clobetasol 1 applic TOPICAL BID 04/18/18 07/09/18 dorzolamide-timolol 1 drp OPHTHALMIC (EYE) DIRECTED 04/18/18 07/09/18 losartan 100 mg PO DAILY 07/09/18 07/09/18 metoprolol succinate 100 mg PO DAILY 07/09/18 07/09/18 omeprazole 20 mg PO DAILY 07/09/18 07/09/18 potassium chloride [Klor-Con M20] 40 meq PO DAILY 07/09/18 07/09/18 pramipexole [Mirapex] 1 mg PO BEDTIME 07/09/18 07/09/18 trazodone 100 mg PO BEDTIME 07/09/18 07/09/18 Previous Rx's Medication Instructions Recorded apixaban [Eliquis] 5 mg PO BID #90 tab 09/18/17 gabapentin 600 mg tablet 600 mg PO BEDTIME #270 tab 11/22/17 tramadol 50 mg tablet 50 - 100 mg PO TIDP PRN #180 tab 05/27/18 levothyroxine 150 mcg tablet 150 mcg PO QPM #90 tab 06/17/18 cefuroxime axetil 500 mg tablet 500 mg PO Q12H 10 Days #28 tab 07/08/18 nitrofurantoin macrocrystal 100 mg 100 mg PO BEDTIME #90 cap 07/08/18 capsule levofloxacin [Levaquin] 750 mg PO DAILY #5 tab 07/09/18 prednisone 40 mg PO DAILY #10 tab 07/09/18 Allergies Allergy/AdvReac Type Severity Reaction Status Date / Time lisinopril [LISINOPRIL] Allergy Intermediate ANGIOEDEMA Verified 07/08/18 10:04 oxycodone Allergy Intermediate HIVES Verified 07/08/18 10:04 Penicillins [PENICILLINS] Allergy Intermediate RASH Verified 07/08/18 10:04 Sulfa (Sulfonamide Allergy Mild RASH Verified 07/08/18 10:04 Antibiotics) doxycycline AdvReac Mild PHOTOSENSIT Verified 07/08/18 10:04 IVITY PABA Allergy Intermediate LIP Uncoded 07/08/18 10:04 SWELLING (IN MANY SUN BLOCKS) Review of Systems Review of Systems All systems reviewed & are unremarkable except as noted in HPI and below Constitutional Denies chills, Denies fever(s), Denies lethargy and Denies weakness Cardiovascular Reports as per HPI, Reports irregular heart rhythm, Reports palpitations and Denies dyspnea Respiratory Reports cough, Reports excessive phlegm production and Denies dyspnea Gastrointestinal Gastrointestinal: Denies abdominal pain, Denies change in bowel habits, Denies diarrhea, Denies nausea and Denies vomiting Genitourinary Denies hematuria, Denies flank pain, Denies urinary incontinence and Denies urinary urgency Musculoskeletal Denies back pain, Denies muscle weakness, Denies numbness and Denies tingling Integumentary/Breasts Denies pruritus, Denies erythema, Denies rash and Denies wounds Neurologic Denies numbness, Denies tingling and Denies weakness Endocrine Reports palpitations FOR[facility], [facility] Medical History Essential hypertension (Chronic) Mixed hyperlipidemia (Chronic 09/02/12) Acquired hypothyroidism (Chronic 05/04/11) Obstructive sleep apnea syndrome (Chronic 05/04/11) Glaucoma (Chronic 05/04/11) Typical atrial flutter (Chronic 07/31/17) Hypertension (Chronic) Surgical History History of knee replacement (Resolved) History of nephrectomy (Resolved) History of total mastectomy (Resolved 1998) Status post laminectomy (Resolved) Status post vaginal hysterectomy (Resolved) Family History Sister Family history of breast cancer Sister Family history of colon cancer Sister Family history of ovarian cancer Family/Other Family history of colon cancer Social History marital status: number of children: 3 household members: spouse lives independently: Yes caregiver/support person: Yes (Bus 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) housing: house pets and animals: Yes education level: college (4+ years) occupational status: other (Retired) 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: None travel history: over 6 months ago ([place], [place]) 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, 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) Smoking Status: Never smoker Tobacco: How many years used: 0 quit status: quit date established (Never Started) second hand exposure: No alcohol intake: current (Glass of wine at dinner on occasion.) substance use type: does not use Exam Initial Vital Signs Initial Vital Signs: Vital Signs Temperature 98.2 F 07/09/18 09:05 Pulse Rate 88 07/09/18 09:05 Respiratory Rate 22 07/09/18 09:05 Blood Pressure 115/70 07/09/18 09:05 Pulse Oximetry 94 07/09/18 09:05 GENERAL: Alert cooperative comfortable elderly female HEENT: Head atraumatic,EOMI, neck is supple no JVD CARDIOVASCULAR: Regular rate and rhythm without murmurs, rubs or gallops. RESPIRATORY: Diffuse scant wheezing bilaterally coughing with deep breathing no respiratory distress ABDOMEN: Soft, nontender. Normoactive bowel sounds all 4 quadrants. No guarding or rebound. EXTREMITIES: Normal range of motion, no clubbing or edema. Neurovascularly intact NEUROLOGICAL: Alert and oriented x4.Normal gait and speech. Cranial nerves II through XII grossly intact. SKIN: Warm, dry, no laceration, no petechiae, no rashes or lesions. Course Orders Ordered: ED Orders 07/09/18 09:15 B Type Natriuretic Peptide Stat Complete Blood Count AUTO DIFF Stat Comprehensive Metabolic Panel Stat Lipase Stat Partial Thromboplastin Time Stat Prothrombin Time INR Stat Troponin & CK Cardiac Panel Stat 07/09/18 09:16 XR chest 1V Stat 12/18/18 10:30 Urine Microscopic Stat Discontinued Medications Sodium Chloride (Normal Saline 0.9%) 1,000 mls @ 150 mls/hr IV CONT JOSAFAT Last Infusion: 07/09/18 11:48 Dose: 150 mls/hr Admin: 07/09/18 09:39 Dose: 150 mls/hr Levalbuterol HCl (Xopenex) 1.25 mg INH NOW ONE Stop: 07/09/18 10:10 Last Admin: 07/09/18 10:59 Dose: 1.25 mg Vital Signs - 8 hr 07/09/18 09:05 07/09/18 11:01 07/09/18 11:05 Temperature 98.2 F Pulse Rate 88 71 69 Respiratory Rate 22 14 16 Blood Pressure 115/70 Blood Pressure [Right Arm] 107/70 Pulse Oximetry 94 94 92 07/09/18 11:27 Temperature Pulse Rate 69 Respiratory Rate 14 Blood Pressure Blood Pressure [Right Arm] 113/67 Pulse Oximetry 93 MDM - Arrhythmia/Palpitations Lab Data Attestation: I reviewed the patient's lab results. Result diagrams: 07/09/18 09:15 07/09/18 09:15 Lab Results 07/09/18 07/09/18 07/09/18 Range/Units 09:15 09:15 09:15 WBC 6.6 (4.5-11.0) X10^3/uL RBC 5.02 (4.0-5.2) X10^6/uL Hgb 14.7 (12.0-16.0) g/dL Hct 44.5 (36-46) % MCV 88.7 (80-100) fL MCH 29.2 (26-34) PG MCHC 32.9 (30-36) % RDW 14.2 (11.6-14.8) % Plt Count 142 L (150-400) X10^3/uL Neut % (Auto) 64.5 (50-75) % Lymph % (Auto) 25.0 (25-40) % [place] % (Auto) 7.1 (3-14) % Eos % (Auto) 2.6 (2-4) % Baso % (Auto) 0.8 (0-2) % Neut # (Auto) 4300 (9469-8413) /uL PT 13.8 H (10.1-12.7) SECONDS INR 1.2 (0.9-1.3) APTT 42 H (26.4-36.2) SECONDS Sodium 140 (137-145) mmol/L Potassium 4.0 (3.4-5.1) mmol/L Chloride 100 (98-107) mmol/L Carbon Dioxide 25 (22-32) mmol/L BUN 17 (7-17) mg/dL Creatinine 0.90 (0.52-1.04) mg/dL Estimated GFR 59.7 L (>60) mL/min BUN/Creatinine Ratio 18.9 (6-22) Glucose 134 H (80-110) mg/dL Calcium 9.8 (8.4-10.2) mg/dL Total Bilirubin 0.6 (0.2-1.3) mg/dL AST 21 (14-36) IU/L ALT 22 (9-52) IU/L Alkaline Phosphatase 78 (38-126) U/L Total Creatine Kinase 20 L (30-135) U/L CK-MB (CK-2) TNP CK-MB (CK-2) Rel Index TNP Troponin I < 0.012 (0.01-0.034) ng/mL B-Natriuretic Peptide (<100) Total Protein 7.1 (6.3-8.2) g/dL Albumin 4.4 (3.5-5.0) g/dL Globulin 2.7 (1.7-4.1) g/dL Albumin/Globulin Ratio 1.6 (1.0-2.8) Lipase 50 (23-300) U/L Urine RBC (0-5/HPF) Urine WBC (0-5/HPF) Ur Squamous Epith Cells Urine Bacteria (None) Ur Culture Indicated? Micro UA Comment 07/09/18 07/09/18 Range/Units 09:15 10:30 WBC (4.5-11.0) X10^3/uL RBC (4.0-5.2) X10^6/uL Hgb (12.0-16.0) g/dL Hct (36-46) % MCV (80-100) fL MCH (26-34) PG MCHC (30-36) % RDW (11.6-14.8) % Plt Count (150-400) X10^3/uL Neut % (Auto) (50-75) % Lymph % (Auto) (25-40) % [place] % (Auto) (3-14) % Eos % (Auto) (2-4) % Baso % (Auto) (0-2) % Neut # (Auto) (9969-9287) /uL PT (10.1-12.7) SECONDS INR (0.9-1.3) APTT (26.4-36.2) SECONDS Sodium (137-145) mmol/L Potassium (3.4-5.1) mmol/L Chloride (98-107) mmol/L Carbon Dioxide (22-32) mmol/L BUN (7-17) mg/dL Creatinine (0.52-1.04) mg/dL Estimated GFR (>60) mL/min BUN/Creatinine Ratio (6-22) Glucose (80-110) mg/dL Calcium (8.4-10.2) mg/dL Total Bilirubin (0.2-1.3) mg/dL AST (14-36) IU/L ALT (9-52) IU/L Alkaline Phosphatase (38-126) U/L Total Creatine Kinase (30-135) U/L CK-MB (CK-2) CK-MB (CK-2) Rel Index Troponin I (0.01-0.034) ng/mL B-Natriuretic Peptide 121.0 H (<100) Total Protein (6.3-8.2) g/dL Albumin (3.5-5.0) g/dL Globulin (1.7-4.1) g/dL Albumin/Globulin Ratio (1.0-2.8) Lipase (23-300) U/L Urine RBC None seen (0-5/HPF) Urine WBC 5-10/hpf H (0-5/HPF) Ur Squamous Epith Cells 10-30 /hpf H D Urine Bacteria Moderate (10-30) H (None) Ur Culture Indicated? Cult not indicated Micro UA Comment Not Reportable Urine Dip Bedside Urine Glucose Negative Bedside Urine Bilirubin - Negative Bedside Urine Ketone - Negative Urine Specific [place] 1.015 Bedside Urine Occult Blood - Negative Bedside Urine pH 6.0 Bedside Urine Protein - Negative Bedside Urine Urobilinogen - Negative Bedside Urine Nitrite - Negative Bedside Urine Leukocytes - Negative Esterase Imaging Data Chest x-ray: Radiologist's impression: [address] [address] XRay Report Signed Patient: Ciara Morel MR#: [id number] : 1935 Acct:[id number] Age/Sex: 83 / F Date of Service: 07/09/18 Loc: ED Accession Number: [id number] Procedure: XR chest 1V Ordering Provider: Glory Stover D.O. PROCEDURE: XR CHEST 1V INDICATIONS: chest pain TECHNIQUE: One view of the chest was acquired. COMPARISON: [facility], CR, CHEST 1 VIEW, 12/28/2011, 9:05. [facility], CR, CHEST 2 VIEW, 04/14/2015, 15:17. [facility], CR, CHEST 2 VIEW, 01/18/2017, 12:19. [facility], , XR CHEST 1V, 04/18/2018, 12:01. FINDINGS: Surgical changes and devices: None. Lungs and pleura: Aeration of the lungs is similar to the prior study. Focal linear area of increased attenuation is identified along the lateral left lung base, which is more conspicuous on the current exam, compared to exams dating back to 2011, which may represent an area of scar versus atelectasis.. No focal consolidation, large effusion or pneumothorax is evident. Mediastinum: Mediastinal contours appear normal. The heart is borderline enlarged. There is aortic atherosclerosis. Mitral valve calcifications are noted. Bones and chest wall: No suspicious bony lesions. Moderate dextroscoliosis of the thoracic spine is similar to the prior exam. Overlying soft tissues appear unremarkable. IMPRESSION: 1. Stable chest. No acute cardiopulmonary process is evident. 2. Linear area of increased attenuation along the lateral aspect of the left lung base may represent scarring versus atelectasis; however, the possibility of a developing pulmonary nodule is difficult to exclude. Please consider chest CT for further evaluation, which may be performed on a nonemergent basis. Dictated by: Neil Pena M.D. on 07/09/2018 at 10:27 ECG Data Attestation: I personally reviewed and interpreted this ECG as follows: Prior ECG tracings: available for review Interpretation: Normal sinus rhythm rate [address] changes no T-wave inversions appear interval is 218 she is a known 1st degree heart block, similar to previous EKGs. No MA T appreciated no AFib appreciated MDM Narrative Medical decision making narrative: She apparently has had a Holter monitor in the past. At this time I do think that her breathing and respiratory status is causing her heart palpitations. She is quite wheezy is diffusely coughing frequently. did not want to give her albuterol thought it might increase the heart rate too much he said he had an episode where he had albuterol that caused him to have AFib. So she is actually given Xopenex which actually does help open her up a little bit more and decrease some of the coughing she does feel better afterwards. She does not want an inhaler. At this time is with productive cough for 10 days and wheezing will treat for atypical pneumonia. His at this time. Keflex and start Levaquin for more broad coverage. Also try course of prednisone to help with some inflammation. X-ray is negative for pneumonia. She is not hypoxic. She is on Eliquis do not suspect PE at this time. I discussed all findings with the patient and , are agreeable to this plan. Discharge Plan Departure Patient Disposition: Home Clinical Impression: Atypical pneumonia Discharge Date/Time: 07/09/18 11:51 Interventions: ED Discharge Assessment Last Done: 07/09/18 11:49 Instructions: DI for Atypical Pneumonia Activity Restrictions/Additional Instructions: *You have been diagnosed with atypical pneumonia *What to do: Decorate a [place] tree, rest, hydrate *Continue to take medications as directed Stop taking keflex Start taking Levaquin 750 mg once a day *Follow up with your primary care provider in 2-3 days *Return to ER if you should have worsening cough, dizziness, lightheadedness, chest discomfort or any new, worsening or concerning symptoms Prescriptions: New levofloxacin [Levaquin] 750 mg tablet 750 mg PO DAILY Qty: 5 RF: 0 prednisone 20 mg tablet 40 mg PO DAILY Qty: 10 RF: 0 No Action latanoprost [Xalatan] 0.005 % drops 1 gtt OP BEDTIME Qty: 0 RF: 0 apixaban [Eliquis] 5 MG tablet 5 mg PO BID Qty: 90 RF: 3 tramadol 50 mg tablet 50 - 100 mg PO TIDP PRN (Reason: pain) Qty: 180 RF: 1 levothyroxine [Synthroid] 150 mcg tablet 150 mcg PO QPM Qty: 90 RF: 0 gabapentin [Neurontin] 600 mg tablet 600 mg PO BEDTIME Qty: 270 RF: 3 cefuroxime axetil 500 mg tablet 500 mg PO Q12H 10 Days Qty: 28 RF: 1 nitrofurantoin macrocrystal 100 mg capsule 100 mg PO BEDTIME Qty: 90 RF: 3 brimonidine 0.2 % drops 1 drp ophthalmic (eye) DIRECTED RF: 0 dorzolamide-timolol 22.3-6.8 mg/mL drops 1 drp ophthalmic (eye) DIRECTED RF: 0 acetaminophen 500 mg Tablet 500 mg PO Q4H PRN (Reason: pain) RF: 0 clobetasol 0.05 % solution 1 applic Topical BID RF: 0 trazodone 50 mg tablet 100 mg PO BEDTIME RF: 0 metoprolol succinate 100 MG tablet extended release 24 hr 100 mg PO DAILY RF: 0 pramipexole [Mirapex] 0.5 mg tablet 1 mg PO BEDTIME RF: 0 potassium chloride [Klor-Con M20] 20 mEq tablet,ER particles/crystals 40 meq PO DAILY RF: 0 omeprazole 20 MG capsule,delayed release(DR/EC) 20 mg PO DAILY RF: 0 losartan 100 mg tablet 100 mg PO DAILY RF: 0 Referrals: Vincenzo Talamantes MD [Primary Care Provider] -
--- NOTE | 2018-07-09 09:49 | ED_ITS ---
HPI - Arrhythmia/Palpitations General Chief Complaint: Arrhythmia/Palpitations Stated Complaint: heart flutter Time Seen by Provider: 07/09/18 09:15 Source: patient Mode of arrival: ambulatory Limitations: no limitations History of Present Illness HPI narrative: Patient is an 83-year-old female who presents with heart palpitations and and dizziness. She has a history of atrial fibrillation or MAT. she is currently being treated for upper respiratory like symptoms with keflex. She has had cough and congestion for the last 10 days. No fever or chills. She does have a cough with deep breathing. She does have a productive cough. She denies any chest pain. She overall is feeling much better than she did this morning. Dr. Talamantes her PCP it is in the ED to see and evaluate her. Related Data Home Medications Medication Instructions Recorded Confirmed latanoprost [Xalatan] 1 gtt OP BEDTIME #0 12/28/11 07/09/18 acetaminophen 500 mg PO Q4H PRN 04/18/18 07/09/18 brimonidine 1 drp OPHTHALMIC (EYE) DIRECTED 04/18/18 07/09/18 clobetasol 1 applic TOPICAL BID 04/18/18 07/09/18 dorzolamide-timolol 1 drp OPHTHALMIC (EYE) DIRECTED 04/18/18 07/09/18 losartan 100 mg PO DAILY 07/09/18 07/09/18 metoprolol succinate 100 mg PO DAILY 07/09/18 07/09/18 omeprazole 20 mg PO DAILY 07/09/18 07/09/18 potassium chloride [Klor-Con M20] 40 meq PO DAILY 07/09/18 07/09/18 pramipexole [Mirapex] 1 mg PO BEDTIME 07/09/18 07/09/18 trazodone 100 mg PO BEDTIME 07/09/18 07/09/18 Previous Rx's Medication Instructions Recorded apixaban [Eliquis] 5 mg PO BID #90 tab 09/18/17 gabapentin 600 mg tablet 600 mg PO BEDTIME #270 tab 11/22/17 tramadol 50 mg tablet 50 - 100 mg PO TIDP PRN #180 tab 05/27/18 levothyroxine 150 mcg tablet 150 mcg PO QPM #90 tab 06/17/18 cefuroxime axetil 500 mg tablet 500 mg PO Q12H 10 Days #28 tab 07/08/18 nitrofurantoin macrocrystal 100 mg 100 mg PO BEDTIME #90 cap 07/08/18 capsule levofloxacin [Levaquin] 750 mg PO DAILY #5 tab 07/09/18 prednisone 40 mg PO DAILY #10 tab 07/09/18 Allergies Allergy/AdvReac Type Severity Reaction Status Date / Time lisinopril [LISINOPRIL] Allergy Intermediate ANGIOEDEMA Verified 07/08/18 10:04 oxycodone Allergy Intermediate HIVES Verified 07/08/18 10:04 Penicillins [PENICILLINS] Allergy Intermediate RASH Verified 07/08/18 10:04 Sulfa (Sulfonamide Allergy Mild RASH Verified 07/08/18 10:04 Antibiotics) doxycycline AdvReac Mild PHOTOSENSIT Verified 07/08/18 10:04 IVITY PABA Allergy Intermediate LIP Uncoded 07/08/18 10:04 SWELLING (IN MANY SUN BLOCKS) Review of Systems Review of Systems All systems reviewed & are unremarkable except as noted in HPI and below Constitutional Denies chills, Denies fever(s), Denies lethargy and Denies weakness Cardiovascular Reports as per HPI, Reports irregular heart rhythm, Reports palpitations and Denies dyspnea Respiratory Reports cough, Reports excessive phlegm production and Denies dyspnea Gastrointestinal Gastrointestinal: Denies abdominal pain, Denies change in bowel habits, Denies diarrhea, Denies nausea and Denies vomiting Genitourinary Denies hematuria, Denies flank pain, Denies urinary incontinence and Denies urinary urgency Musculoskeletal Denies back pain, Denies muscle weakness, Denies numbness and Denies tingling Integumentary/Breasts Denies pruritus, Denies erythema, Denies rash and Denies wounds Neurologic Denies numbness, Denies tingling and Denies weakness Endocrine Reports palpitations [facility] Medical History Essential hypertension (Chronic) Mixed hyperlipidemia (Chronic 09/02/12) Acquired hypothyroidism (Chronic 05/04/11) Obstructive sleep apnea syndrome (Chronic 05/04/11) Glaucoma (Chronic 05/04/11) Typical atrial flutter (Chronic 07/31/17) Hypertension (Chronic) Surgical History History of knee replacement (Resolved) History of nephrectomy (Resolved) History of total mastectomy (Resolved 1998) Status post laminectomy (Resolved) Status post vaginal hysterectomy (Resolved) Family History Sister Family history of breast cancer Sister Family history of colon cancer Sister Family history of ovarian cancer Family/Other Family history of colon cancer Social History marital status: number of children: 3 household members: spouse lives independently: Yes caregiver/support person: Yes (Track Dresser/Garderner) housing: house pets and animals: Yes education level: college (4+ years) occupational status: other (Retired) 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: None travel history: over 6 months ago ([place], [place]) 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, 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) Smoking Status: Never smoker Tobacco: How many years used: 0 quit status: quit date established (Never Started) second hand exposure: No alcohol intake: current (Glass of wine at dinner on occasion.) substance use type: does not use Exam Initial Vital Signs Initial Vital Signs: Vital Signs Temperature 98.2 F 07/09/18 09:05 Pulse Rate 88 07/09/18 09:05 Respiratory Rate 22 07/09/18 09:05 Blood Pressure 115/70 07/09/18 09:05 Pulse Oximetry 94 07/09/18 09:05 GENERAL: Alert cooperative comfortable elderly female HEENT: Head atraumatic,EOMI, neck is supple no JVD CARDIOVASCULAR: Regular rate and rhythm without murmurs, rubs or gallops. RESPIRATORY: Diffuse scant wheezing bilaterally coughing with deep breathing no respiratory distress ABDOMEN: Soft, nontender. Normoactive bowel sounds all 4 quadrants. No guarding or rebound. EXTREMITIES: Normal range of motion, no clubbing or edema. Neurovascularly intact NEUROLOGICAL: Alert and oriented x4.Normal gait and speech. Cranial nerves II through XII grossly intact. SKIN: Warm, dry, no laceration, no petechiae, no rashes or lesions. Course Orders Ordered: ED Orders 07/09/18 09:15 B Type Natriuretic Peptide Stat Complete Blood Count AUTO DIFF Stat Comprehensive Metabolic Panel Stat Lipase Stat Partial Thromboplastin Time Stat Prothrombin Time INR Stat Troponin & CK Cardiac Panel Stat 07/09/18 09:16 XR chest 1V Stat 12/18/18 10:30 Urine Microscopic Stat Discontinued Medications Sodium Chloride (Normal Saline 0.9%) 1,000 mls @ 150 mls/hr IV CONT JOSAFAT Last Infusion: 07/09/18 11:48 Dose: 150 mls/hr Admin: 07/09/18 09:39 Dose: 150 mls/hr Levalbuterol HCl (Xopenex) 1.25 mg INH NOW ONE Stop: 07/09/18 10:10 Last Admin: 07/09/18 10:59 Dose: 1.25 mg Vital Signs - 8 hr 07/09/18 09:05 07/09/18 11:01 07/09/18 11:05 Temperature 98.2 F Pulse Rate 88 71 69 Respiratory Rate 22 14 16 Blood Pressure 115/70 Blood Pressure [Right Arm] 107/70 Pulse Oximetry 94 94 92 07/09/18 11:27 Temperature Pulse Rate 69 Respiratory Rate 14 Blood Pressure Blood Pressure [Right Arm] 113/67 Pulse Oximetry 93 MDM - Arrhythmia/Palpitations Lab Data Attestation: I reviewed the patient's lab results. Result diagrams: 07/09/18 09:15 07/09/18 09:15 Lab Results 07/09/18 07/09/18 07/09/18 Range/Units 09:15 09:15 09:15 WBC 6.6 (4.5-11.0) X10^3/uL RBC 5.02 (4.0-5.2) X10^6/uL Hgb 14.7 (12.0-16.0) g/dL Hct 44.5 (36-46) % MCV 88.7 (80-100) fL MCH 29.2 (26-34) PG MCHC 32.9 (30-36) % RDW 14.2 (11.6-14.8) % Plt Count 142 L (150-400) X10^3/uL Neut % (Auto) 64.5 (50-75) % Lymph % (Auto) 25.0 (25-40) % [place]ink % (Auto) 7.1 (3-14) % Eos % (Auto) 2.6 (2-4) % Baso % (Auto) 0.8 (0-2) % Neut # (Auto) 4300 (4982-2064) /uL PT 13.8 H (10.1-12.7) SECONDS INR 1.2 (0.9-1.3) APTT 42 H (26.4-36.2) SECONDS Sodium 140 (137-145) mmol/L Potassium 4.0 (3.4-5.1) mmol/L Chloride 100 (98-107) mmol/L Carbon Dioxide 25 (22-32) mmol/L BUN 17 (7-17) mg/dL Creatinine 0.90 (0.52-1.04) mg/dL Estimated GFR 59.7 L (>60) mL/min BUN/Creatinine Ratio 18.9 (6-22) Glucose 134 H (80-110) mg/dL Calcium 9.8 (8.4-10.2) mg/dL Total Bilirubin 0.6 (0.2-1.3) mg/dL AST 21 (14-36) IU/L ALT 22 (9-52) IU/L Alkaline Phosphatase 78 (38-126) U/L Total Creatine Kinase 20 L (30-135) U/L CK-MB (CK-2) TNP CK-MB (CK-2) Rel Index TNP Troponin I < 0.012 (0.01-0.034) ng/mL B-Natriuretic Peptide (<100) Total Protein 7.1 (6.3-8.2) g/dL Albumin 4.4 (3.5-5.0) g/dL Globulin 2.7 (1.7-4.1) g/dL Albumin/Globulin Ratio 1.6 (1.0-2.8) Lipase 50 (23-300) U/L Urine RBC (0-5/HPF) Urine WBC (0-5/HPF) Ur Squamous Epith Cells Urine Bacteria (None) Ur Culture Indicated? Micro UA Comment 07/09/18 07/09/18 Range/Units 09:15 10:30 WBC (4.5-11.0) X10^3/uL RBC (4.0-5.2) X10^6/uL Hgb (12.0-16.0) g/dL Hct (36-46) % MCV (80-100) fL MCH (26-34) PG MCHC (30-36) % RDW (11.6-14.8) % Plt Count (150-400) X10^3/uL Neut % (Auto) (50-75) % Lymph % (Auto) (25-40) % Spink % (Auto) (3-14) % Eos % (Auto) (2-4) % Baso % (Auto) (0-2) % Neut # (Auto) (1633-9996) /uL PT (10.1-12.7) SECONDS INR (0.9-1.3) APTT (26.4-36.2) SECONDS Sodium (137-145) mmol/L Potassium (3.4-5.1) mmol/L Chloride (98-107) mmol/L Carbon Dioxide (22-32) mmol/L BUN (7-17) mg/dL Creatinine (0.52-1.04) mg/dL Estimated GFR (>60) mL/min BUN/Creatinine Ratio (6-22) Glucose (80-110) mg/dL Calcium (8.4-10.2) mg/dL Total Bilirubin (0.2-1.3) mg/dL AST (14-36) IU/L ALT (9-52) IU/L Alkaline Phosphatase (38-126) U/L Total Creatine Kinase (30-135) U/L CK-MB (CK-2) CK-MB (CK-2) Rel Index Troponin I (0.01-0.034) ng/mL B-Natriuretic Peptide 121.0 H (<100) Total Protein (6.3-8.2) g/dL Albumin (3.5-5.0) g/dL Globulin (1.7-4.1) g/dL Albumin/Globulin Ratio (1.0-2.8) Lipase (23-300) U/L Urine RBC None seen (0-5/HPF) Urine WBC 5-10/hpf H (0-5/HPF) Ur Squamous Epith Cells 10-30 /hpf H D Urine Bacteria Moderate (10-30) H (None) Ur Culture Indicated? Cult not indicated Micro UA Comment Not Reportable Urine Dip Bedside Urine Glucose Negative Bedside Urine Bilirubin - Negative Bedside Urine Ketone - Negative Urine Specific [place] 1.015 Bedside Urine Occult Blood - Negative Bedside Urine pH 6.0 Bedside Urine Protein - Negative Bedside Urine Urobilinogen - Negative Bedside Urine Nitrite - Negative Bedside Urine Leukocytes - Negative Esterase Imaging Data Chest x-ray: Radiologist's impression: [address] [id number] XRay Report Signed Patient: Ciara Morel MR#: [id number] : 1935 Acct:[id number] Age/Sex: 83 / F Date of Service: 07/09/18 Loc: ED Accession Number: [id number] Procedure: XR chest 1V Ordering Provider: Glory Stover D.O. PROCEDURE: XR CHEST 1V INDICATIONS: chest pain TECHNIQUE: One view of the chest was acquired. COMPARISON: [facility], CR, CHEST 1 VIEW, 12/28/2011, 9:05. [facility], CR, CHEST 2 VIEW, 04/14/2015, 15:17. [facility], CR, CHEST 2 VIEW, 01/18/2017, 12:19. [facility], , XR CHEST 1V, 04/18/2018, 12:01. FINDINGS: Surgical changes and devices: None. Lungs and pleura: Aeration of the lungs is similar to the prior study. Focal linear area of increased attenuation is identified along the lateral left lung base, which is more conspicuous on the current exam, compared to exams dating back to 2011, which may represent an area of scar versus atelectasis.. No focal consolidation, large effusion or pneumothorax is evident. Mediastinum: Mediastinal contours appear normal. The heart is borderline enlarged. There is aortic atherosclerosis. Mitral valve calcifications are noted. Bones and chest wall: No suspicious bony lesions. Moderate dextroscoliosis of the thoracic spine is similar to the prior exam. Overlying soft tissues appear unremarkable. IMPRESSION: 1. Stable chest. No acute cardiopulmonary process is evident. 2. Linear area of increased attenuation along the lateral aspect of the left lung base may represent scarring versus atelectasis; however, the possibility of a developing pulmonary nodule is difficult to exclude. Please consider chest CT for further evaluation, which may be performed on a nonemergent basis. Dictated by: Neil Pena M.D. on 07/09/2018 at 10:27 ECG Data Attestation: I personally reviewed and interpreted this ECG as follows: Prior ECG tracings: available for review Interpretation: Normal sinus rhythm rate [address] changes no T-wave inversions appear interval is 218 she is a known 1st degree heart block, similar to previous EKGs. No MA T appreciated no AFib appreciated MDM Narrative Medical decision making narrative: She apparently has had a Holter monitor in the past. At this time I do think that her breathing and respiratory status is causing her heart palpitations. She is quite wheezy is diffusely coughing frequently. did not want to give her albuterol thought it might increase the heart rate too much he said he had an episode where he had albuterol that caused him to have AFib. So she is actually given Xopenex which actually does help open her up a little bit more and decrease some of the coughing she does feel better afterwards. She does not want an inhaler. At this time is with productive cough for 10 days and wheezing will treat for atypical pneumonia. His at this time. Keflex and start Levaquin for more broad coverage. Also try course of prednisone to help with some inflammation. X-ray is negative for pneumonia. She is not hypoxic. She is on Eliquis do not suspect PE at this time. I discussed all findings with the patient and , are agreeable to this plan. Discharge Plan Departure Patient Disposition: Home Clinical Impression: Atypical pneumonia Discharge Date/Time: 07/09/18 11:51 Interventions: ED Discharge Assessment Last Done: 07/09/18 11:49 Instructions: DI for Atypical Pneumonia Activity Restrictions/Additional Instructions: *You have been diagnosed with atypical pneumonia *What to do: Decorate a [place] tree, rest, hydrate *Continue to take medications as directed Stop taking keflex Start taking Levaquin 750 mg once a day *Follow up with your primary care provider in 2-3 days *Return to ER if you should have worsening cough, dizziness, lightheadedness, chest discomfort or any new, worsening or concerning symptoms Prescriptions: New levofloxacin [Levaquin] 750 mg tablet 750 mg PO DAILY Qty: 5 RF: 0 prednisone 20 mg tablet 40 mg PO DAILY Qty: 10 RF: 0 No Action latanoprost [Xalatan] 0.005 % drops 1 gtt OP BEDTIME Qty: 0 RF: 0 apixaban [Eliquis] 5 MG tablet 5 mg PO BID Qty: 90 RF: 3 tramadol 50 mg tablet 50 - 100 mg PO TIDP PRN (Reason: pain) Qty: 180 RF: 1 levothyroxine [Synthroid] 150 mcg tablet 150 mcg PO QPM Qty: 90 RF: 0 gabapentin [Neurontin] 600 mg tablet 600 mg PO BEDTIME Qty: 270 RF: 3 cefuroxime axetil 500 mg tablet 500 mg PO Q12H 10 Days Qty: 28 RF: 1 nitrofurantoin macrocrystal 100 mg capsule 100 mg PO BEDTIME Qty: 90 RF: 3 brimonidine 0.2 % drops 1 drp ophthalmic (eye) DIRECTED RF: 0 dorzolamide-timolol 22.3-6.8 mg/mL drops 1 drp ophthalmic (eye) DIRECTED RF: 0 acetaminophen 500 mg Tablet 500 mg PO Q4H PRN (Reason: pain) RF: 0 clobetasol 0.05 % solution 1 applic Topical BID RF: 0 trazodone 50 mg tablet 100 mg PO BEDTIME RF: 0 metoprolol succinate 100 MG tablet extended release 24 hr 100 mg PO DAILY RF: 0 pramipexole [Mirapex] 0.5 mg tablet 1 mg PO BEDTIME RF: 0 potassium chloride [Klor-Con M20] 20 mEq tablet,ER particles/crystals 40 meq PO DAILY RF: 0 omeprazole 20 MG capsule,delayed release(DR/EC) 20 mg PO DAILY RF: 0 losartan 100 mg tablet 100 mg PO DAILY RF: 0 Referrals: Vincenzo Talamantes MD [Primary Care Provider] -
[2018-07-09 09:53] LABS: Troponin I < 0.012 ng/mL (0.01-0.034)
[2018-07-09 10:33] LABS: RBC Urine None Seen (0-5/HPF)
[2018-07-09 10:58] LABS: Bacteria Urine Moderate (10-30); Squamous Epithelial Cell Urine 10-30 /HPF; WBC Urine 5-10/HPF (0-5/HPF)
[2018-07-09 10:59] LABS: Culture Indicated Urine Cult Not Indicated
[2018-07-09] MEDS: LEVALBUTEROL 1.25 MG/0.5 ML NEB INH (10:59)
[2018-07-09 11:01] VITALS: PULSE 71; RESP 14; O2SAT 94
[2018-07-09 11:05] VITALS: BP 107/70; PULSE 69; RESP 16; O2SAT 92
[2018-07-09 11:27] VITALS: BP 113/67; PULSE 69; RESP 14; O2SAT 93
== END 2018-07-09 11:51 | disposition home or self-care (01) ==
PROVIDERS: Emergency Provider Emergency Medicine; PCP Internal Medicine
DX: J18.9 Pneumonia, unspecified organism (principal)
CPT/HCPCS: 36591; 71045; 80053; 81003; 81015; 82550; 83690; 83880; 84484; 85025; 85610; 85730; 93005; 94640; 96360; 96361; 99283; 99285; J7614

== ENCOUNTER 2018-09-26 11:26 | Inpatient (IN) | payer MEDICARE, OTHER, SELFPAY ==
[2018-09-26] VITALS (21 sets, daily range): BP systolic 68–130; BP diastolic 42–89; PULSE 66–115; RESP 16–30; TEMP 36.2–39.3; O2SAT 93–99; BMI 30.7; BMI 31.6
--- NOTE | 2018-09-26 11:39 | ED.GENADULT ---
HPI - General Adult General Chief complaint: Weakness Stated complaint: Cannot keep balance Time Seen by Provider: 09/26/18 11:35 Source: patient and family Mode of arrival: wheelchair Limitations: no limitations History of Present Illness HPI narrative: patient is an 83-year-old female who yesterday was at home alone. She states that she turned and lost her balance and fell. She states she did feel like she hit the top of her head on the ground. Was some concern about loss of consciousness. She stated that she was unable to get up. She states she laid on the ground for approximately an hour into her came home and help her get up. Her states that afterwards last evening she was very unsteady on her feet. Seemed to have problems with fine motor movements. They were sitting on the couch and she fell asleep several times. He stated that she did not want to come to the ER last evening. After she woke up from her nap she seemed to be better. they went to bed. When they woke up this morning they both feel like she is very unsteady on her feet. Her baseline tremors much worse. She was unable to feed herself because she could not control the spoon. Related Data Home Medications Medication Instructions Recorded Confirmed latanoprost [Xalatan] 1 gtt OP BEDTIME #0 12/28/11 09/26/18 acetaminophen 500 mg PO Q4H PRN 04/18/18 09/26/18 brimonidine 1 drp OPHTHALMIC (EYE) BID 04/18/18 09/26/18 clobetasol 1 applic TOPICAL BID 04/18/18 09/26/18 dorzolamide-timolol 1 drp OPHTHALMIC (EYE) BID 04/18/18 09/26/18 omeprazole 20 mg PO DAILY 07/09/18 09/26/18 pramipexole [Mirapex] 1 mg PO BEDTIME 07/09/18 09/26/18 trazodone 100 mg PO BEDTIME 07/09/18 09/26/18 docusate sodium 250 mg PO DAILY PRN 09/26/18 09/26/18 furosemide 20 mg PO DAILY 09/26/18 09/26/18 levothyroxine [Synthroid] 150 mcg PO QAM 09/26/18 09/26/18 Previous Rx's Medication Instructions Recorded gabapentin 600 mg tablet 600 mg PO BEDTIME #270 tab 11/22/17 nitrofurantoin macrocrystal 100 mg 100 mg PO BEDTIME #90 cap 07/08/18 capsule Eliquis 5 mg PO BID #90 tab 07/29/18 losartan 100 mg tablet 100 mg PO DAILY #90 tab 09/09/18 metoprolol succinate ER 100 mg 100 mg PO DAILY #90 tab 09/09/18 tablet,extended release 24 hr potassium chloride ER 20 mEq 40 meq PO DAILY #180 tab 09/09/18 tablet,extended release(part/cryst) tramadol 50 mg tablet 50 - 100 mg PO TIDP PRN #180 tab 09/09/18 Allergies Allergy/AdvReac Type Severity Reaction Status Date / Time lisinopril [LISINOPRIL] Allergy Intermediate ANGIOEDEMA Verified 09/26/18 11:44 oxycodone Allergy Intermediate HIVES Verified 09/26/18 11:44 Penicillins [PENICILLINS] Allergy Intermediate RASH Verified 09/26/18 11:44 Sulfa (Sulfonamide Allergy Mild RASH Verified 09/26/18 11:44 Antibiotics) doxycycline AdvReac Mild PHOTOSENSIT Verified 09/26/18 11:44 IVITY PABA Allergy Intermediate LIP Uncoded 09/26/18 11:44 SWELLING (IN MANY SUN BLOCKS) Review of Systems Constitutional Denies fever(s), Denies frequent falls, Denies headache(s) and Reports weakness Eyes Denies change in vision ENT Ears, Nose, Mouth, and Throat: Denies vertigo, Denies dizziness, Denies headache(s), Denies neck pain and Denies disequilibrium Cardiovascular Denies chest pain, Denies palpitations and Denies dyspnea Respiratory Denies dyspnea Gastrointestinal Gastrointestinal: Denies abdominal pain, Denies nausea and Denies vomiting Genitourinary Denies dysuria Musculoskeletal Reports abnormal gait, Denies myalgias, Denies arthralgias, Denies muscle cramps, Reports muscle weakness, Denies neck pain and Denies tingling Integumentary/Breasts Denies rash Neurologic Reports abnormal movements, Denies abnormal speech, Reports abnormal gait, Denies behavioral changes, Denies vertigo, Denies dizziness, Denies frequent falls, Denies headache(s), Denies seizure-like activity, Denies tingling, Denies disequilibrium and Reports weakness Psychiatric Denies behavioral changes Endocrine Denies palpitations Hematologic/Lymphatic Comments: On Eliquis [facility] Social History marital status: number of children: 3 household members: spouse lives independently: Yes caregiver/support person: Yes ([employer] 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/Garderner) housing: house pets and animals: Yes education level: college (4+ years) occupational status: other (Retired) 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 jordana/hoahaoism: None travel history: over 6 months ago ([place], [place]) 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, 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) Smoking Status: Never smoker Tobacco: How many years used: 0 quit status: quit date established (Never Started) second hand exposure: No alcohol intake: current (Glass of wine at dinner on occasion.) substance use type: does not use Exam Initial Vital Signs Initial Vital Signs: Vital Signs Temperature 98.0 F 09/26/18 11:40 Pulse Rate 86 09/26/18 11:40 Respiratory Rate 20 09/26/18 11:40 Blood Pressure 105/57 L 09/26/18 11:40 Pulse Oximetry 96 09/26/18 11:40 Const General: cooperative, comfortable, well groomed and No acute distress Orientation: alert, awake and oriented x3 HENMT Head: normal to inspection and normocephalic Nose: external nose normal Face and sinus: normal facial exam Mouth: oral mucosae normal Eyes Pupils: PERRL EOM: EOM intact bilaterally Chest Chest: normal inspection of the chest Resp Effort & Inspection: normal respiratory effort Auscultation: clear to auscultation bilaterally Cardio Rate: regular rate Rhythm: regular rhythm Pulses: radial pulses present GI Inspection: non-distended Palpation: soft, No firm and No tender Back/Spine/Pelvis Cervical Spine: No cervical spasm and No cervical spinal tenderness Skin Lesions: no lesions Rashes: no rashes Neuro General: alert, awake and oriented x3 Cranial Nerves: CN's II-XI intact bilaterally Cognition: normal cognition Speech: speech normal Other: patient with difficulty doing [id number] bilateral upper extremities. Unable doing [id number] bilateral lower extremities how ever left lower extremity was better than right lower extremity. Sensation seems to be intact. Two- 3/5 strength bilateral lower extremities however. He has equal. 5/5 strength bilateral upper extremities and is equal. No change in hot to cold sensation with lower extremities upper extremities. No change in pain lower extremities upper extremities. Extrem General: normal to inspection and capillary refill normal Psych Appearance: grossly normal and well kempt Course Orders Ordered: ED Orders 09/26/18 11:37 EKG-12 Lead Stat 09/26/18 11:54 Acetaminophen Stat Basic Metabolic Panel Stat Complete Blood Count AUTO DIFF Stat Ethanol (ETOH) Stat Partial Thromboplastin Time Stat Prothrombin Time INR Stat Thyroid Stimulating Hormone Stat Troponin I Stat 09/26/18 11:58 CT head/brain wo con Stat 09/26/18 12:17 Ammonia (NH3) Stat 09/26/18 13:14 FLU A and B [Influenza A and B by PCR Rapid] Stat 09/26/18 13:23 XR chest 1V Stat 09/26/18 13:34 Blood Culture Stat Lactate (Lactic Acid) Stat Procalcitonin Stat 09/26/18 13:39 Urine Microscopic Stat Ceftriaxone Sodium/Dextrose (Rocephin) 1 gm in 50 mls @ 100 mls/hr IV NOW ONE Stop: 09/26/18 14:39 Discontinued Medications Acetaminophen (Tylenol) 650 mg PO NOW ONE Stop: 09/26/18 13:18 Last Admin: 09/26/18 13:23 Dose: 650 mg Sodium Chloride (Normal Saline 0.9%) 1,000 mls @ 1,000 mls/hr IV BOLUS ONE Stop: 09/26/18 14:16 Last Admin: 09/26/18 13:23 Dose: 1,000 mls/hr Vital Signs - 8 hr 09/26/18 11:40 09/26/18 11:59 09/26/18 12:22 Temperature 98.0 F Pulse Rate 86 84 85 Respiratory Rate 20 22 22 Blood Pressure 105/57 L 111/50 L Blood Pressure [Right Arm] 111/50 L Pulse Oximetry 96 97 93 09/26/18 13:07 09/26/18 13:23 09/26/18 13:44 Temperature 101.1 F H Pulse Rate 86 97 H Respiratory Rate 23 30 H Blood Pressure Blood Pressure [Right Arm] 103/64 130/78 Pulse Oximetry 99 94 Medical Decision Making Lab Data Lab results reviewed: Yes I reviewed the patient's lab results. Result diagrams: 09/26/18 11:54 09/26/18 11:54 Lab Results 0309/26/18 09/26/18 Range/Units 11:54 11:54 11:54 WBC 11.8 H (4.5-11.0) X10^3/uL RBC 4.64 (4.0-5.2) X10^6/uL Hgb 13.3 (12.0-16.0) g/dL Hct 40.6 (36-46) % MCV 87.5 (80-100) fL MCH 28.6 (26-34) PG MCHC 32.7 (30-36) % RDW 15.5 H (11.6-14.8) % Plt Count 83 L (150-400) X10^3/uL Neut % (Auto) 91.1 H (50-75) % Lymph % (Auto) 5.7 L (25-40) % [place] % (Auto) 3.1 (3-14) % Eos % (Auto) 0.0 L (2-4) % Baso % (Auto) 0.1 (0-2) % Neut # (Auto) 89087 H (8655-1788) /uL Lymph # (Auto) 700 L (8294-4346) /uL [place] # (Auto) 400 (0-900) /uL Eos # (Auto) 0 (0-450) /uL Baso # (Auto) 0 (0-100) /uL PT 23.0 H (10.1-12.7) SECONDS INR 2.0 H (0.9-1.3) APTT 38 H D (26.4-36.2) SECONDS Sodium 129 L (137-145) mmol/L Potassium 4.3 (3.4-5.1) mmol/L Chloride 95 L (98-107) mmol/L Carbon Dioxide 22 (22-32) mmol/L BUN 45 H (7-17) mg/dL Creatinine 2.10 H (0.52-1.04) mg/dL Estimated GFR 22.4 L (>60) mL/min BUN/Creatinine Ratio 21.4 (6-22) Glucose 263 H (80-110) mg/dL Calcium 9.4 (8.4-10.2) mg/dL Ammonia (9-30) umol/L Troponin I (0.01-0.034) ng/mL TSH (0.47-4.68) uIU/mL Urine RBC (0-5/HPF) Urine WBC (0-5/HPF) Ur Squamous Epith Cells Urine Bacteria (None) Ur Culture Indicated? Acetaminophen < 10 L (10-30) ug/mL Ethyl Alcohol < 10 mg/dL Influenza A & B (PCR) (Negative) 09/26/18 09/26/18 09/26/18 Range/Units 11:54 11:54 12:17 WBC (4.5-11.0) X10^3/uL RBC (4.0-5.2) X10^6/uL Hgb (12.0-16.0) g/dL Hct (36-46) % MCV (80-100) fL MCH (26-34) PG MCHC (30-36) % RDW (11.6-14.8) % Plt Count (150-400) X10^3/uL Neut % (Auto) (50-75) % Lymph % (Auto) (25-40) % [place] % (Auto) (3-14) % Eos % (Auto) (2-4) % Baso % (Auto) (0-2) % Neut # (Auto) (2276-3827) /uL Lymph # (Auto) (1724-2481) /uL [place] # (Auto) (0-900) /uL Eos # (Auto) (0-450) /uL Baso # (Auto) (0-100) /uL PT (10.1-12.7) SECONDS INR (0.9-1.3) APTT (26.4-36.2) SECONDS Sodium (137-145) mmol/L Potassium (3.4-5.1) mmol/L Chloride (98-107) mmol/L Carbon Dioxide (22-32) mmol/L BUN (7-17) mg/dL Creatinine (0.52-1.04) mg/dL Estimated GFR (>60) mL/min BUN/Creatinine Ratio (6-22) Glucose (80-110) mg/dL Calcium (8.4-10.2) mg/dL Ammonia < 9.0 L (9-30) umol/L Troponin I 0.016 (0.01-0.034) ng/mL TSH 0.21 L (0.47-4.68) uIU/mL Urine RBC (0-5/HPF) Urine WBC (0-5/HPF) Ur Squamous Epith Cells Urine Bacteria (None) Ur Culture Indicated? Acetaminophen (10-30) ug/mL Ethyl Alcohol mg/dL Influenza A & B (PCR) (Negative) 09/26/18 09/26/18 Range/Units 13:14 13:39 WBC (4.5-11.0) X10^3/uL RBC (4.0-5.2) X10^6/uL Hgb (12.0-16.0) g/dL Hct (36-46) % MCV (80-100) fL MCH (26-34) PG MCHC (30-36) % RDW (11.6-14.8) % Plt Count (150-400) X10^3/uL Neut % (Auto) (50-75) % Lymph % (Auto) (25-40) % [place] % (Auto) (3-14) % Eos % (Auto) (2-4) % Baso % (Auto) (0-2) % Neut # (Auto) (5822-8975) /uL Lymph # (Auto) (2987-8494) /uL [place] # (Auto) (0-900) /uL Eos # (Auto) (0-450) /uL Baso # (Auto) (0-100) /uL PT (10.1-12.7) SECONDS INR (0.9-1.3) APTT (26.4-36.2) SECONDS Sodium (137-145) mmol/L Potassium (3.4-5.1) mmol/L Chloride (98-107) mmol/L Carbon Dioxide (22-32) mmol/L BUN (7-17) mg/dL Creatinine (0.52-1.04) mg/dL Estimated GFR (>60) mL/min BUN/Creatinine Ratio (6-22) Glucose (80-110) mg/dL Calcium (8.4-10.2) mg/dL Ammonia (9-30) umol/L Troponin I (0.01-0.034) ng/mL TSH (0.47-4.68) uIU/mL Urine RBC 5-10/hpf H (0-5/HPF) Urine WBC 10-30/hpf H (0-5/HPF) Ur Squamous Epith Cells 10-30 /hpf H Urine Bacteria None seen (None) Ur Culture Indicated? Cult not indicated Acetaminophen (10-30) ug/mL Ethyl Alcohol mg/dL Influenza A & B (PCR) Negative (Negative) Urine Dip Bedside Urine Glucose Negative Bedside Urine Bilirubin - Negative Bedside Urine Ketone - Negative Urine Specific [place] 1.025 Bedside Urine Occult Blood ++ Bedside Urine pH 5.5 Bedside Urine Protein + 30 Bedside Urine Urobilinogen - Negative Bedside Urine Nitrite - Negative Bedside Urine Leukocytes ++ 125 Esterase Point of care testing: Urine Dip Bedside Urine Glucose Negative Bedside Urine Bilirubin - Negative Bedside Urine Ketone - Negative Urine Specific [place] 1.025 Bedside Urine Occult Blood ++ Bedside Urine pH 5.5 Bedside Urine Protein + 30 Bedside Urine Urobilinogen - Negative Bedside Urine Nitrite - Negative Bedside Urine Leukocytes ++ [address] scan - head: Radiologist's impression: NDICATIONS: fall yesterday on Eliquis TECHNIQUE: Noncontrast 4.5 mm thick angled axial sections acquired from the foramen magnum to the vertex, with coronal and sagittal reformats. For radiation dose reduction, the following was used: automated exposure control, adjustment of mA and/or kV according to patient size. COMPARISON: [facility], MR, STROKE PROTOCOL, 12/29/2011, 11:46. [facility], CT, HEAD WITHOUT CONTRAST, 12/28/2011, 9:01. FINDINGS: Image quality: Diagnostic. CSF spaces: Basal cisterns are patent. No extra-axial fluid collections. Ventricles are mildly prominent with corresponding parenchymal volume loss. Brain: No midline shift. No intracranial masses or hemorrhage. Jessica-white matter interface is normal. Subtle areas of low attenuation within the periventricular white matter of the supratentorial brain are present. There continues to be focal prominence of the distal left internal carotid artery and adjacent middle cerebral artery. Skull and face: Calvarium and visualized facial bones are intact, without suspicious lesions. Sinuses: Visualized sinuses and mastoids are clear. IMPRESSION: 1. No acute intracranial hemorrhage. 2. 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 Mild chronic small vessel ischemic changes and parenchymal volume loss. Dictated by: Neil Pnea M.D. on 09/26/2018 at 11:26 Approved by: Neil Pena M.D. on 09/26/2018 at 11:30 Chest x-ray: Radiologist's impression: [address] [id number] XRay Report Signed Patient: Ciara Morel KMR#: [id number] : 4Acct:[id number] Age/Sex: 83 / FDate of Service: 09/26/18 Loc: ED Accession Number: [id number] Procedure: XR chest 1V Ordering Provider: Ranjeet Cyr D.O. PROCEDURE: XR CHEST 1V INDICATIONS: fever and high RR TECHNIQUE: One view of the chest was acquired. COMPARISON: [facility], CR, XR CHEST 1V, 07/09/2018, 9:41. [facility], CR, XR CHEST 1V, 04/18/2018, 12:01. FINDINGS: Surgical changes and devices: None. Lungs and pleura: Lungs are clear. No pleural effusions or pneumothorax. Mediastinum: Mediastinal contours appear normal. Heart size is normal. Bones and chest wall: No suspicious bony lesions. Overlying soft tissues appear unremarkable. IMPRESSION: No acute process. Dictated by: Sagar Sen M.D. on 09/26/2018 at 14:14 Approved by: Sagar Sen M.D. on 09/26/2018 at 14:14 ECG Data Attestation: I personally reviewed and interpreted this ECG as follows: Prior ECG tracings: not available for review Interpretation: Sinus rhythm ventricular rate 84 Incomplete right bundle branch block ventricular rate for as needed oval 209 milliseconds Normal QRS normal QTC no ST T wave changes MDM Narrative Medical decision making narrative: head CT is unremarkable. No injuries noted on exam. Patient does have lower extremity weakness that is worse the upper extremity weakness. Considered cord syndromes however she has no other neurologic symptoms that is consistent with any of them. She has normal proprioception, normal heat and cold. during her stay here in the emergency department she did develop a fever. Given her tachypnea and her slightly elevated white blood cell count I do have concerns about an occult infection. The shaking and she is having could very well be rigors. Her chest x-ray is unremarkable. Her urine does look like a urinary tract infection. She was given Rocephin here in the emergency department. Lactate and procalcitonin were pending at the time of admission. I discussed the case with Dr. Talamantes who is the patient's primary doctor who will admit for further evaluation and treatment. I did not feel that the patient needed the 30 cc/kilos of fluids here in the emergency department. She was not hypotensive. She was not altered. Discussed the admission with the patient and her . They both expressed understanding and agreement. Discharge Plan Departure Patient Disposition: Admitted as Observation Clinical Impression: Weakness Urinary tract infection Qualifiers: Urinary tract infection type: site unspecified Hematuria presence: with hematuria Qualified Code(s): N39.0 - Urinary tract infection, site not specified Fall Qualifiers: Encounter type: initial encounter Qualified Code(s): W19.XXXA - Unspecified fall, initial encounter
--- NOTE | 2018-09-26 11:58 | DI.CT.S_ITS ---
PROCEDURE: CT HEAD/BRAIN WO CON INDICATIONS: fall yesterday on Eliquis TECHNIQUE: Noncontrast 4.5 mm thick angled axial sections acquired from the foramen magnum to the vertex, with coronal and sagittal reformats. For radiation dose reduction, the following was used: automated exposure control, adjustment of mA and/or kV according to patient size. COMPARISON: [facility], MR, STROKE PROTOCOL, 12/29/2011, 11:46. [facility], CT, HEAD WITHOUT CONTRAST, 12/28/2011, 9:01. FINDINGS: Image quality: Diagnostic. CSF spaces: Basal cisterns are patent. No extra-axial fluid collections. Ventricles are mildly prominent with corresponding parenchymal volume loss. Brain: No midline shift. No intracranial masses or hemorrhage. Jessica-white matter interface is normal. Subtle areas of low attenuation within the periventricular white matter of the supratentorial brain are present. There continues to be focal prominence of the distal left internal carotid artery and adjacent middle cerebral artery. Skull and face: Calvarium and visualized facial bones are intact, without suspicious lesions. Sinuses: Visualized sinuses and mastoids are clear. IMPRESSION: 1. No acute intracranial hemorrhage. 2. 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 Mild chronic small vessel ischemic changes and parenchymal volume loss. Dictated by: Neil Pena M.D. on 09/26/2018 at 11:26 Approved by: Neil Pena M.D. on 09/26/2018 at 11:30
[2018-09-26 12:02] LABS: Add Manual Diff / Slide Review NO; Basophils Absolute Auto 0 /uL (0-100); Basophils Percent Auto 0.1 % (0-2); Eosinophils Absolute Auto 0 /uL (0-450); Hematocrit 40.6 % (36-46); Hemoglobin 13.3 g/dL (12.0-16.0); Lymphocytes Absolute Auto 700 /uL (1100-4500); Lymphocytes Percent Auto 5.7 % (25-40); Mean Corpuscular HGB Conc 32.7 % (30-36); Mean Corpuscular Hemoglobin 28.6 PG (26-34); Mean Corpuscular Volume 87.5 fL (80-100); Monocytes Absolute Auto 400 /uL (0-900); Monocytes Percent Auto 3.1 % (3-14); Neutrophils Absolute Auto 10700 /uL (1500-7000); Neutrophils Percent Auto 91.1 % (50-75); Platelet Count 83 X10^3/uL (150-400); Red Blood Cell Count 4.64 X10^6/uL (4.0-5.2); Red Cell Distribution Width 15.5 % (11.6-14.8); White Blood Cell Count 11.8 X10^3/uL (4.5-11.0)
[2018-09-26 12:12] LABS: PTT Partial Thromboplastin Tim 38 SECONDS (26.4-36.2)
[2018-09-26 12:30] LABS: Acetaminophen < 10 ug/mL (10-30); BUN Creatinine Ratio 21.4 (6-22); Blood Urea Nitrogen 45 mg/dL (7-17); Calcium 9.4 mg/dL (8.4-10.2); Carbon Dioxide 22 mmol/L (22-32); Chloride 95 mmol/L (98-107); Estimated Glomerular Filt Rate 22.4 mL/min (>60); Ethanol (ETOH) < 10 mg/dL; Glucose 263 mg/dL (80-110); HEMOLYSIS 45 (0-50); Potassium 4.3 mmol/L (3.4-5.1); Sodium 129 mmol/L (137-145)
[2018-09-26 12:35] LABS: Ammonia (NH3) < 9.0 umol/L (9-30)
[2018-09-26 12:41] LABS: Troponin I 0.016 ng/mL (0.01-0.034)
[2018-09-26 13:23] LABS: Thyroid Stimulating Hormone 0.21 uIU/mL (0.47-4.68)
[2018-09-26] MEDS: ACETAMINOPHEN 325 MG TABLET 650 MG PO (13:23)
[2018-09-26] MEDS: SODIUM CHLORIDE 0.9% 1,000 ML 1000 ML IV (13:23)
--- NOTE | 2018-09-26 13:23 | DI.RAD.S_ITS ---
PROCEDURE: XR CHEST 1V INDICATIONS: fever and high RR TECHNIQUE: One view of the chest was acquired. COMPARISON: [facility], CR, XR CHEST 1V, 07/09/2018, 9:41. [facility], CR, XR CHEST 1V, 04/18/2018, 12:01. FINDINGS: Surgical changes and devices: None. Lungs and pleura: Lungs are clear. No pleural effusions or pneumothorax. Mediastinum: Mediastinal contours appear normal. Heart size is normal. Bones and chest wall: No suspicious bony lesions. Overlying soft tissues appear unremarkable. IMPRESSION: No acute process. Dictated by: Sagar Sen M.D. on 09/26/2018 at 14:14 Approved by: Sagar Sen M.D. on 09/26/2018 at 14:14
[2018-09-26 14:02] LABS: Bacteria Urine None Seen; Culture Indicated Urine Cult Not Indicated; RBC Urine 5-10/HPF (0-5/HPF); Squamous Epithelial Cell Urine 10-30 /HPF; WBC Urine 10-30/HPF (0-5/HPF)
[2018-09-26 14:19] LABS: Influenza A and B by PCR Rapid Negative (Negative)
[2018-09-26 14:23] LABS: Procalcitonin 51.01 ng/mL (<0.5)
[2018-09-26 14:28] LABS: Lactate (Lactic Acid) 2.3 mmol/L (0.7-2.1)
[2018-09-26] MEDS: CEFTRIAXONE 1 GM/50 ML FROZ.PIGGY IV ×2 (14:29→22:31)
[2018-09-26] MEDS: IBUPROFEN 400 MG TABLET PO (15:28)
--- NOTE | 2018-09-26 16:04 | P.HP_ITS ---
History of Present Illness Date Patient Seen: 09/26/18 Time Patient Seen: 14:45 Chief complaint: Cannot keep balance Narrative: 83-year-old female transferred [facility] Emergency Department by spouse because of weakness. Patient says she has been ill for a week or so. Had coughing and increasing weakness. When spouse came home yesterday after running errands found her on the ground unable to get up on her own. He managed to get her up to a chair and then into bed bit decided not to bring her to the emergency department (shared decision). This morning she was actually weaker and worse and he transported her to the emergency department In the ED she was found to have ongoing rigors profound weakness and some altered mental status/confusion. She was some better when her fever broke as far as rigors and confusion seem better after some IV fluids workup in the ED revealed some prerenal azotemia as well as a leukocytosis elevated prolactin and calcitonin suggestive of infection and possible UTI She was admitted for further therapies Patient History Medical History Essential hypertension (Chronic) Mixed hyperlipidemia (Chronic 09/02/12) Acquired hypothyroidism (Chronic 05/04/11) Obstructive sleep apnea syndrome (Chronic 05/04/11) Glaucoma (Chronic 05/04/11) Typical atrial flutter (Chronic 07/31/17) Hypertension (Chronic) Surgical History History of knee replacement (Resolved) History of nephrectomy (Resolved) History of total mastectomy (Resolved 1998) Status post laminectomy (Resolved) Status post vaginal hysterectomy (Resolved) Family History Sister Family history of breast cancer Sister Family history of colon cancer Sister Family history of ovarian cancer Family/Other Family history of colon cancer Social History marital status: number of children: 3 household members: spouse lives independently: Yes caregiver/support person: Yes (Protective Signal Installer 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) housing: house pets and animals: Yes education level: college (4+ years) occupational status: other (Retired) 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 jordana/holiness: None travel history: over 6 months ago ([place], [place]) 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, 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) Smoking Status: Never smoker Tobacco: How many years used: 0 quit status: quit date established (Never Started) second hand exposure: No alcohol intake: current (Glass of wine at dinner on occasion.) substance use type: does not use Family & Social History Family History Sister Family history of breast cancer Sister Family history of colon cancer Sister Family history of ovarian cancer Family/Other Family history of colon cancer Social History: household members spouse lives independently Yes caregiver/support person Yes: Protective 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 Installer 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 Safety & Behavioral: Feels Safe in Current Yes Environment Tobacco & Substance use: Smoking Status Never smoker alcohol intake current Substance Use Type does not use Meds Home Medications Medication Instructions Recorded Confirmed Type latanoprost [Xalatan] 1 gtt OP BEDTIME #0 12/28/11 09/26/18 History gabapentin 600 mg tablet 600 mg PO BEDTIME #270 tab 11/22/17 09/26/18 Rx acetaminophen 500 mg PO Q4H PRN 04/18/18 09/26/18 History brimonidine 1 drp OPHTHALMIC (EYE) BID 04/18/18 09/26/18 History clobetasol 1 applic TOPICAL BID 04/18/18 09/26/18 History dorzolamide-timolol 1 drp OPHTHALMIC (EYE) BID 04/18/18 09/26/18 History nitrofurantoin macrocrystal 100 mg 100 mg PO BEDTIME #90 cap 07/08/18 09/26/18 Rx capsule omeprazole 20 mg PO BID 07/09/18 09/26/18 History pramipexole [Mirapex] 1 mg PO BEDTIME 07/09/18 09/26/18 History trazodone 100 mg PO BEDTIME 07/09/18 09/26/18 History Eliquis 5 mg PO BID #90 tab 07/29/18 09/26/18 Rx losartan 100 mg tablet 100 mg PO DAILY #90 tab 09/09/18 09/26/18 Rx metoprolol succinate ER 100 mg 100 mg PO DAILY #90 tab 09/09/18 09/26/18 Rx tablet,extended release 24 hr potassium chloride ER 20 mEq 40 meq PO DAILY #180 tab 09/09/18 09/26/18 Rx tablet,extended release(part/cryst) tramadol 50 mg tablet 50 - 100 mg PO TIDP PRN #180 tab 09/09/18 09/26/18 Rx docusate sodium 250 mg PO DAILY PRN 09/26/18 09/26/18 History furosemide 20 mg PO DAILY 09/26/18 09/26/18 History levothyroxine [Synthroid] 150 mcg PO QAM 09/26/18 09/26/18 History Allergies Allergy/AdvReac Type Severity Reaction Status Date / Time lisinopril [LISINOPRIL] Allergy Intermediate ANGIOEDEMA Verified 09/26/18 11:44 oxycodone Allergy Intermediate HIVES Verified 09/26/18 11:44 Penicillins [PENICILLINS] Allergy Intermediate RASH Verified 09/26/18 11:44 Sulfa (Sulfonamide Allergy Mild RASH Verified 09/26/18 11:44 Antibiotics) doxycycline AdvReac Mild PHOTOSENSIT Verified 09/26/18 11:44 IVITY PABA Allergy Intermediate LIP Uncoded 09/26/18 11:44 SWELLING (IN MANY SUN BLOCKS) Review of Systems Constitutional Constitutional: Reports chills, Denies excessive sweating, Reports fatigue, Reports fever(s), Denies headache(s), Reports lack of energy, Reports malaise, Reports weakness, Denies weight gain and Denies weight loss Eyes Eyes: Denies change in vision, Denies itchy eyes, Denies loss of vision and Denies other visual disturbances ENT Ears, Nose, Mouth, and Throat: No difficulty swallowing, No headache(s) and No neck pain Cardiovascular Cardiovascular: Denies chest pain, Denies fainting, Denies fast heart rate, Denies irregular heart rhythm, Denies rapid, pounding, or irregular heartbeat, Denies shortness of breath, Denies shortness of breath with activity and Denies slow heart rate Respiratory Respiratory: Reports cough, Denies hemoptysis, Denies dyspnea and Denies dyspnea on exertion Gastrointestinal Gastrointestinal: Denies abdominal pain, Denies bloating, Denies change in bowel habits, Denies change in stool character, Denies dysphagia, Denies nausea, Denies vomiting and Denies hematemesis Genitourinary Genitourinary: Denies hematuria, Denies urinary frequency, Denies difficulty voiding and Denies urinary urgency Musculoskeletal Musculoskeletal: Denies myalgias, Denies arthralgias, Denies limited range of motion and Denies neck pain Integumentary/Breasts Skin/Breast: Denies bleeding lesions, Denies change in pigmentation, Denies changing lesions, Denies new lesions, Denies rash, Denies skin swelling, Denies sores and Denies jaundice Neurologic Neurologic: Denies syncope, Denies headache(s), Denies loss of vision, Denies memory loss and Reports weakness Psychiatric Psychiatric: Denies change in appetite, Denies difficulty concentrating, Denies auditory hallucinations, Denies memory loss, Denies mood swings and Denies suicidal ideation Endocrine Endocrine: Denies excessive sweating, Reports fatigue and Denies palpitations Hematologic/Lymphatic Hematologic/Lymphatic: Denies easy bleeding, Denies easy bruising and Denies lymphadenopathy Allergic/Immunologic Allergic/Immunologic: Denies itchy eyes Exam Vital Signs (past 8 hours): - 09/26/18 11:40 09/26/18 11:59 09/26/18 12:22 Temperature 98.0 F Pulse Rate 86 84 85 Respiratory Rate 20 22 22 Blood Pressure 105/57 L 111/50 L Blood Pressure [Right Arm] 111/50 L Pulse Oximetry 96 97 93 09/26/18 13:07 09/26/18 13:23 09/26/18 13:44 Temperature 101.1 F H Pulse Rate 86 97 H Respiratory Rate 23 30 H Blood Pressure Blood Pressure [Right Arm] 103/64 130/78 Pulse Oximetry 99 94 09/26/18 15:28 09/26/18 15:31 Temperature 102.8 F H 102.8 F H Pulse Rate 100 H Respiratory Rate 26 H Blood Pressure Blood Pressure [Right Arm] 101/63 Pulse Oximetry 98 Oxygen Delivery Method Room Air Narrative Exam Narrative: Elderly female shaking with rigors on a gurney in the emergency department HEENT-unremarkable, normocephalic atraumatic Neck-no lymphadenopathy no bruits Lungs-clear anteriorly and posteriorly no wheezes no crackles good breath sounds Heart-regular rate and rhythm, no murmur, rub, or gallop. normal S1-S2 Abdomen-positive bowel tones, soft, nontender, nondistended, no hepatosplenomegaly, no masses palpable Neuro-global weakness particularly in lower extremities, gait not tested, no abnormal reflexes Extremities-no cyanosis clubbing or edema Objective Imaging Chest x-ray: My impression: No acute infiltrate or significant disease CT scan - head: Radiologist's impression: No acute findings Labs Result Diagrams: 09/27/18 05:51 09/27/18 05:51 Labs: Laboratory Results - last 24 hr 09/26/18 09/26/18 09/26/18 11:54 11:54 11:54 WBC 11.8 H RBC 4.64 Hgb 13.3 Hct 40.6 MCV 87.5 MCH 28.6 MCHC 32.7 RDW 15.5 H Plt Count 83 L Neut % (Auto) 91.1 H Lymph % (Auto) 5.7 L [place] % (Auto) 3.1 Eos % (Auto) 0.0 L Baso % (Auto) 0.1 Neut # (Auto) 70914 H Lymph # (Auto) 700 L [place] # (Auto) 400 Eos # (Auto) 0 Baso # (Auto) 0 PT 23.0 H INR 2.0 H APTT 38 H D Sodium 129 L Potassium 4.3 Chloride 95 L Carbon Dioxide 22 BUN 45 H Creatinine 2.10 H Estimated GFR 22.4 L BUN/Creatinine Ratio 21.4 Glucose 263 H Lactate Calcium 9.4 Ammonia Troponin I Procalcitonin TSH Urine RBC Urine WBC Ur Squamous Epith Cells Urine Bacteria Ur Culture Indicated? Acetaminophen < 10 L Ethyl Alcohol < 10 Influenza A & B (PCR) 09/26/18 09/26/18 09/26/18 11:54 11:54 12:17 WBC RBC Hgb Hct MCV MCH MCHC RDW Plt Count Neut % (Auto) Lymph % (Auto) [place] % (Auto) Eos % (Auto) Baso % (Auto) Neut # (Auto) Lymph # (Auto) [place] # (Auto) Eos # (Auto) Baso # (Auto) PT INR APTT Sodium Potassium Chloride Carbon Dioxide BUN Creatinine Estimated GFR BUN/Creatinine Ratio Glucose Lactate Calcium Ammonia < 9.0 L Troponin I 0.016 Procalcitonin TSH 0.21 L Urine RBC Urine WBC Ur Squamous Epith Cells Urine Bacteria Ur Culture Indicated? Acetaminophen Ethyl Alcohol Influenza A & B (PCR) 09/26/18 09/26/18 09/26/18 13:14 13:34 13:34 WBC RBC Hgb Hct MCV MCH MCHC RDW Plt Count Neut % (Auto) Lymph % (Auto) [place] % (Auto) Eos % (Auto) Baso % (Auto) Neut # (Auto) Lymph # (Auto) [place] # (Auto) Eos # (Auto) Baso # (Auto) PT INR APTT Sodium Potassium Chloride Carbon Dioxide BUN Creatinine Estimated GFR BUN/Creatinine Ratio Glucose Lactate 2.3 H Calcium Ammonia Troponin I Procalcitonin 51.01 H TSH Urine RBC Urine WBC Ur Squamous Epith Cells Urine Bacteria Ur Culture Indicated? Acetaminophen Ethyl Alcohol Influenza A & B (PCR) Negative 09/26/18 13:39 WBC RBC Hgb Hct MCV MCH MCHC RDW Plt Count Neut % (Auto) Lymph % (Auto) [place] % (Auto) Eos % (Auto) Baso % (Auto) Neut # (Auto) Lymph # (Auto) [place] # (Auto) Eos # (Auto) Baso # (Auto) PT INR APTT Sodium Potassium Chloride Carbon Dioxide BUN Creatinine Estimated GFR BUN/Creatinine Ratio Glucose Lactate Calcium Ammonia Troponin I Procalcitonin TSH Urine RBC 5-10/hpf H Urine WBC 10-30/hpf H Ur Squamous Epith Cells 10-30 /hpf H Urine Bacteria None seen Ur Culture Indicated? Cult not indicated Acetaminophen Ethyl Alcohol Influenza A & B (PCR) Assessment & Plan Assessment & Plan narrative: 1. Infection-patient with possible UTI versus other source of infection. Patient febrile with leukocytosis altered mental status etc. Her vital signs are stable at least blood pressure and heart rate. This point seems clear she has some sort of bacterial infection again probably UTI based on her history and lack of other findings. She was started on IV fluids and IV antibiotics in the ED which will continue. Hopefully with appropriate treatment her fever will come down and her altered mental status w ill improve as well. She should regain her strength etc 2. Prerenal azotemia-patient with single kidney status post nephrectomy. However baseline creatinine is really quite normal. Hopefully with appropriate fluid resuscitation she will improve. Plan to recheck numbers tomorrow. 3. History atrial flutter-no evidence of cardiac dysrhythmia at this point. Will keep her on telemetry. 4. Patient's other medical problems including her glaucoma her hypothyroidism her distant history of renal cell carcinoma and breast cancer all appear to be stable without active issue Continue usual medications with the exception of her diuretic therapy and potassium replacement 5. DVT prophylaxis-patient chronic anticoagulated due to her cardiac dysrhythmia 6. Code status-patient requests full code which seems entirely appropriate Patient clearly deserves inpatient hospitalization given her fever her elevated white count prolactin calcitonin etc., as well as her altered mental status which would suggest end-organ issues with her infection She clearly be in the hospital greater than 48 hr will spend 2 separate midnights
[2018-09-26] MEDS: SODIUM CHLORIDE 0.9% 1,000 ML 150 ML IV (17:33)
[2018-09-26 18:09] LABS: Reflexed Lactate in 2 Hours Y
[2018-09-26 18:38] LABS: Lactate 2HR (Lactic Acid Rflx) 1.5 mmol/L (0.7-2.1)
--- NOTE | 2018-09-26 21:27 | PC.NURSE ---
Addendum entered by Marilyn Campbell R.N. 09/27/18 00:15: Called Dr. Talamantes and received order for 500 ml NS bolus and increased IVF rate to 250 ml/hr. Pt had been difficult to rouse, now is alert and oriented, conversant. Pt had been cool and clammy. B/p 90s/50s. Able to get OOB to bathroom with one person assist. Gabapentin held per pt requst, stating she only takes when having pain. Trazadone not given due to decreased LOC earlier. Original Note: IRRIGATOR noted B/P to be 74/44, rechecked and was 68/42. IRRIGATOR alerted nurse. Recheck B/P after checking proper placement; was 78/53.
[2018-09-26] MEDS: SODIUM CHLORIDE 0.9% 500 ML 1000 ML IV (22:02)
[2018-09-26] MEDS: APIXABAN 5 MG TABLET PO (22:06)
[2018-09-26] MEDS: DOCUSATE 100 MG CAPSULE PO (22:07)
[2018-09-26] MEDS: PRAMIPEXOLE 0.25 MG TABLET 1 MG PO (22:07)
[2018-09-26] MEDS: BRIMONIDINE 0.2% OPHTH 5 ML 1 DROPS EYE-BOTH (22:08)
[2018-09-26] MEDS: DORZOLAMIDE/TIMOLOL OPHTH 10 ML 1 DROPS EYE-BOTH (22:17)
[2018-09-26] MEDS: LATANOPROST 0.005% OPHTH 2.5 ML 1 DROPS EYE-BOTH (22:17)
[2018-09-26] MEDS: SODIUM CHLORIDE 0.9% 1,000 ML 250 ML IV (22:34)
[2018-09-27] VITALS (11 sets, daily range): BP systolic 83–156; BP diastolic 55–99; PULSE 67–110; RESP 16–22; TEMP 35.6–37.4; O2SAT 92–98; BMI 32.8
--- NOTE | 2018-09-27 01:25 | PC.NURSE ---
Addendum entered by Cielo Todd R.N. 09/27/18 06:34: Lab called to report positive blood culture, gram negative rods: E coli. Page and reported to Dr Talamantes results and made him aware of CPAP/call light incident. Original Note: Addendum entered by Cielo Todd R.N. 09/27/18 05:03: This RN was alerted by DOCUMENT MANAGER that pt was crying in room asking to speak to the nurse. Found pt in bed with CPAP cord behind her neck, crying and appearing to be in distress. Pt reports that she had been put back to bed by a DOCUMENT MANAGER who didn't speak Burmese and left her with cords tangled all about and without her call light. Pt states that she started pulling on cords to get the attention of the staff but staff at main nursing station and [facility] nursing station did not report hearing pt call out from room. Pt was found as DOCUMENT MANAGER walked passed room during pt checks. Pt requested that call light be attached to bedside table, to which this RN used supplied clip to attach to pt's gown. Pt yanked on the call light til the clip dislodged and the pt stated there needs to be a stronger clip that won't pull off. Educated pt that that would constitute a restraint and that pt supplied items need to be able to break away. Pt then stated that her call light needs to be just a call light and that it should be separate from the tv remote. Pt reports that she will be filing a complaint about the call light situation and her experience in the hospital. Advised pt that it was within her right. Assisted pt with care to be comfortable. Discussed incident with DOCUMENT MANAGER assigned to pt who was the last staff member to assist pt, she states that she had the CPAP mask seated on pt's face appropriately, air tube across the body to machine, and call light at pt's side next to pt's arm. During discussion with pt, this DOCUMENT MANAGER entered room and pt did not indicate that this was the DOCUMENT MANAGER who didn't speak [place]ese. Discussed with staff DOCUMENT MANAGER who found pt, she had not toileted the pt and pt refused to let her move CPAP air tube from behind pt's neck or assist her in any way. Discussed with two staff members on shift who both possess foreign accents (RN and DOCUMENT MANAGER) and neither entered pt's room. There is some concern that pt might be confused about situation and admission because pt has been very somnolent since admission and was very drowsy during shift assessment. Pt reported that she was in the hospital for pneumonia but CXR is negative and influenza screen is also negative. Coordinator made aware of situation, pt's complaints, and discussions this RN has had with staff regarding incident. Original Note: Shift Note: Received pt from evening shift. Pt currently getting NS by IV @ 250ml/hr for hypotension after a fluid bolus of NS on evening shift. Pt's bp has been trending in the 80's/50's with maps in the 60's. Pt drowsy but oriented, answers questions appropriately, and obeys commands. All systems other than cardiac are WNL. Paged Dr Talamantes for low bp, he returned page quickly and made aware of pressures, at this time he is okay with pt trending as she is and with the current rate of fluids but if pt were to trend below current pressures to transfer down to ICU. Coordinator made aware of aspects of pt's status and the possibility of transfer to ICU.
[2018-09-27] MEDS: SODIUM CHLORIDE 0.9% 1,000 ML 250 ML IV (03:14)
[2018-09-27] MEDS: ACETAMINOPHEN 325 MG TABLET 650 MG PO ×3 (03:26→19:33)
[2018-09-27 06:04] LABS: Acinetobacter baumannii Not Detected (Not Detect); Enterococcus species Not Detected (Not Detect); Listeria monocytogenes Not Detected (Not Detect); Staphylococcus species Not Detected (Not Detect); Streptococcus agalactiae (Gr B Not Detected (Not Detect); Streptococcus pneumonia Not Detected (Not Detect); Streptococcus pyogenes (Gr A) Not Detected (Not Detect); Streptococcus species Not Detected (Not Detect)
[2018-09-27 06:05] LABS: Candida albicans Not Detected (Not Detect); Candida glabrata Not Detected (Not Detect); Candida krusei Not Detected (Not Detect); Candida parapsilosis Not Detected (Not Detect); Enterobacter cloacae complex Not Detected (Not Detect); Haemophilus influenzae Not Detected (Not Detect); KPC (carbapenem-resist gene) Not Detected (Not Detect); Neisseria meningitidis Not Detected (Not Detect); Proteus species Not Detected (Not Detect); Pseudomonas aeruginosa Not Detected (Not Detect); Serratia marcescens Not Detected (Not Detect)
[2018-09-27 06:06] LABS: Candida tropicalis Not Detected (Not Detect)
[2018-09-27] MEDS: LEVOTHYROXINE 150 MCG TABLET PO (06:06)
[2018-09-27 06:08] LABS: E. coli Detected (Not Detect); Enterobacteriaceae species Detected (Not Detect)
[2018-09-27 06:29] LABS: Add Manual Diff / Slide Review NO; Basophils Absolute Auto 0 /uL (0-100); Basophils Percent Auto 0.1 % (0-2); Eosinophils Absolute Auto 0 /uL (0-450); Eosinophils Percent Auto 0.4 % (2-4); Hematocrit 36.1 % (36-46); Hemoglobin 11.8 g/dL (12.0-16.0); Lymphocytes Absolute Auto 500 /uL (1100-4500); Lymphocytes Percent Auto 7.1 % (25-40); Mean Corpuscular HGB Conc 32.6 % (30-36); Mean Corpuscular Hemoglobin 28.5 PG (26-34); Mean Corpuscular Volume 87.6 fL (80-100); Monocytes Absolute Auto 300 /uL (0-900); Monocytes Percent Auto 3.7 % (3-14); Neutrophils Absolute Auto 6400 /uL (1500-7000); Neutrophils Percent Auto 88.7 % (50-75); Platelet Count 52 X10^3/uL (150-400); Red Blood Cell Count 4.12 X10^6/uL (4.0-5.2); Red Cell Distribution Width 15.5 % (11.6-14.8); White Blood Cell Count 7.3 X10^3/uL (4.5-11.0)
[2018-09-27 06:33] LABS: INR 2.2 (0.9-1.3); Prothrombin Time 26.3 SECONDS (10.1-12.7)
[2018-09-27 06:40] LABS: BUN Creatinine Ratio 23.2 (6-22); Blood Urea Nitrogen 44 mg/dL (7-17); Calcium 8.6 mg/dL (8.4-10.2); Carbon Dioxide 20 mmol/L (22-32); Chloride 104 mmol/L (98-107); Estimated Glomerular Filt Rate 25.2 mL/min (>60); Glucose 118 mg/dL (80-110); HEMOLYSIS < 15 (0-50); Potassium 4.6 mmol/L (3.4-5.1); Sodium 132 mmol/L (137-145)
--- NOTE | 2018-09-27 07:14 | P.PN_ITS ---
Subjective Date Patient Seen: 09/27/18 Time Patient Seen: 07:11 Interval history: Patient became hypotensive late in the evening day of admission. She responded to IV fluids. She was also quite febrile just prior to this but that did break with appropriate interventions and pharmacological therapies Patient continued to be confused disoriented about why she was in the hospital what landed her there etc. She has several interesting stories including being wrapped up in her CPAP hose by nurses aides overnight and being told she is going to assisted living and several other thing she was not willing to share. She is slowly coming to the realization that none of this occurred as her mental status clears Overnight with continue IV fluid support blood pressures have stabilized patient remains minimally confused. Initial Gram stain of blood cultures show gram- negative rods in both bottles Exam Vital Signs (past 8 hours): - 09/27/18 00:13 09/27/18 01:00 09/27/18 04:00 Temperature 96.2 F L 98.4 F Pulse Rate 67 89 Respiratory Rate 18 18 Blood Pressure 83/55 L 124/78 Pulse Oximetry 97 97 95 Oxygen Delivery Method Room Air,CPAP Oxygen Flow Rate 0 Narrative Exam Narrative: unchanged from previous Objective Labs Result Diagrams: 09/27/18 05:51 09/27/18 05:51 Labs: Laboratory Results - last 24 hr 09/26/18 09/26/18 09/26/18 11:54 11:54 11:54 WBC 11.8 H RBC 4.64 Hgb 13.3 Hct 40.6 MCV 87.5 MCH 28.6 MCHC 32.7 RDW 15.5 H Plt Count 83 L Neut % (Auto) 91.1 H Lymph % (Auto) 5.7 L Desha % (Auto) 3.1 Eos % (Auto) 0.0 L Baso % (Auto) 0.1 Neut # (Auto) 21486 H Lymph # (Auto) 700 L Desha # (Auto) 400 Eos # (Auto) 0 Baso # (Auto) 0 PT 23.0 H INR 2.0 H APTT 38 H D Sodium 129 L Potassium 4.3 Chloride 95 L Carbon Dioxide 22 BUN 45 H Creatinine 2.10 H Estimated GFR 22.4 L BUN/Creatinine Ratio 21.4 Glucose 263 H Lactate Calcium 9.4 Ammonia Troponin I Procalcitonin TSH Urine RBC Urine WBC Ur Squamous Epith Cells Urine Bacteria Ur Culture Indicated? Acetaminophen < 10 L Ethyl Alcohol < 10 A. baumannii (PCR) Sarah albicans (PCR) C. glabrata (PCR) C. krusei (PCR) C. parapsilosis (PCR) C. tropicalis (PCR) Enterobacteriac sp PCR E. cloacae complex PCR Enterococcus sp PCR E. coli (PCR) H. influenzae (PCR) Influenza A & B (PCR) Klebsiella oxytoca PCR Klebsiella pneumoniae List. monocytogenes PCR N. meningitidis (PCR) Proteus species (PCR) Serratia marcescens PCR Staphylococcus sp PCR Staph aureus (PCR) mecA-Methicil Res Gene Streptococcus sp PCR Group A Strep (PCR) Strep agalactiae (PCR) Strep pneumoniae (PCR) P. aeruginosa (PCR) Alee/B-Vanco Res Genes KPC-Carbap Res Gene PCR 09/26/18 09/26/18 09/26/18 11:54 11:54 11:58 WBC RBC Hgb Hct MCV MCH MCHC RDW Plt Count Neut % (Auto) Lymph % (Auto) Desha % (Auto) Eos % (Auto) Baso % (Auto) Neut # (Auto) Lymph # (Auto) Desha # (Auto) Eos # (Auto) Baso # (Auto) PT INR APTT Sodium Potassium Chloride Carbon Dioxide BUN Creatinine Estimated GFR BUN/Creatinine Ratio Glucose Lactate Calcium Ammonia Troponin I 0.016 Procalcitonin TSH 0.21 L Urine RBC Urine WBC Ur Squamous Epith Cells Urine Bacteria Ur Culture Indicated? Acetaminophen Ethyl Alcohol A. baumannii (PCR) Not detected Sarah albicans (PCR) Not detected C. glabrata (PCR) Not detected C. krusei (PCR) Not detected C. parapsilosis (PCR) Not detected C. tropicalis (PCR) Not detected Enterobacteriac sp PCR Detected H E. cloacae complex PCR Not detected Enterococcus sp PCR Not detected E. coli (PCR) Detected H H. influenzae (PCR) Not detected Influenza A & B (PCR) Klebsiella oxytoca PCR Not detected Klebsiella pneumoniae Not detected List. monocytogenes PCR Not detected N. meningitidis (PCR) Not detected Proteus species (PCR) Not detected Serratia marcescens PCR Not detected Staphylococcus sp PCR Not detected Staph aureus (PCR) Not detected mecA-Methicil Res Gene Not Reportable Streptococcus sp PCR Not detected Group A Strep (PCR) Not detected Strep agalactiae (PCR) Not detected Strep pneumoniae (PCR) Not detected P. aeruginosa (PCR) Not detected Alee/B-Vanco Res Genes Not Reportable KPC-Carbap Res Gene PCR Not detected 09/26/18 09/26/18 09/26/18 12:17 13:14 13:34 WBC RBC Hgb Hct MCV MCH MCHC RDW Plt Count Neut % (Auto) Lymph % (Auto) Desha % (Auto) Eos % (Auto) Baso % (Auto) Neut # (Auto) Lymph # (Auto) Desha # (Auto) Eos # (Auto) Baso # (Auto) PT INR APTT Sodium Potassium Chloride Carbon Dioxide BUN Creatinine Estimated GFR BUN/Creatinine Ratio Glucose Lactate Calcium Ammonia < 9.0 L Troponin I Procalcitonin 51.01 H TSH Urine RBC Urine WBC Ur Squamous Epith Cells Urine Bacteria Ur Culture Indicated? Acetaminophen Ethyl Alcohol A. baumannii (PCR) Sarah albicans (PCR) C. glabrata (PCR) C. krusei (PCR) C. parapsilosis (PCR) C. tropicalis (PCR) Enterobacteriac sp PCR E. cloacae complex PCR Enterococcus sp PCR E. coli (PCR) H. influenzae (PCR) Influenza A & B (PCR) Negative Klebsiella oxytoca PCR Klebsiella pneumoniae List. monocytogenes PCR N. meningitidis (PCR) Proteus species (PCR) Serratia marcescens PCR Staphylococcus sp PCR Staph aureus (PCR) mecA-Methicil Res Gene Streptococcus sp PCR Group A Strep (PCR) Strep agalactiae (PCR) Strep pneumoniae (PCR) P. aeruginosa (PCR) Alee/B-Vanco Res Genes KPC-Carbap Res Gene PCR 09/26/18 09/26/18 09/26/18 13:34 13:39 18:18 WBC RBC Hgb Hct MCV MCH MCHC RDW Plt Count Neut % (Auto) Lymph % (Auto) Desha % (Auto) Eos % (Auto) Baso % (Auto) Neut # (Auto) Lymph # (Auto) Desha # (Auto) Eos # (Auto) Baso # (Auto) PT INR APTT Sodium Potassium Chloride Carbon Dioxide BUN Creatinine Estimated GFR BUN/Creatinine Ratio Glucose Lactate 2.3 H 1.5 Calcium Ammonia Troponin I Procalcitonin TSH Urine RBC 5-10/hpf H Urine WBC 10-30/hpf H Ur Squamous Epith Cells 10-30 /hpf H Urine Bacteria None seen Ur Culture Indicated? Cult not indicated Acetaminophen Ethyl Alcohol A. baumannii (PCR) Sarah albicans (PCR) C. glabrata (PCR) C. krusei (PCR) C. parapsilosis (PCR) C. tropicalis (PCR) Enterobacteriac sp PCR E. cloacae complex PCR Enterococcus sp PCR E. coli (PCR) H. influenzae (PCR) Influenza A & B (PCR) Klebsiella oxytoca PCR Klebsiella pneumoniae List. monocytogenes PCR N. meningitidis (PCR) Proteus species (PCR) Serratia marcescens PCR Staphylococcus sp PCR Staph aureus (PCR) mecA-Methicil Res Gene Streptococcus sp PCR Group A Strep (PCR) Strep agalactiae (PCR) Strep pneumoniae (PCR) P. aeruginosa (PCR) Alee/B-Vanco Res Genes KPC-Carbap Res Gene PCR 09/27/18 09/27/18 09/27/18 05:51 05:51 05:51 WBC 7.3 RBC 4.12 Hgb 11.8 L Hct 36.1 MCV 87.6 MCH 28.5 MCHC 32.6 RDW 15.5 H Plt Count 52 L Neut % (Auto) 88.7 H Lymph % (Auto) 7.1 L Desha % (Auto) 3.7 Eos % (Auto) 0.4 L Baso % (Auto) 0.1 Neut # (Auto) 6400 Lymph # (Auto) 500 L Desha # (Auto) 300 Eos # (Auto) 0 Baso # (Auto) 0 PT 26.3 H INR 2.2 H APTT Sodium 132 L Potassium 4.6 Chloride 104 Carbon Dioxide 20 L BUN 44 H Creatinine 1.90 H Estimated GFR 25.2 L BUN/Creatinine Ratio 23.2 H Glucose 118 H D Lactate Calcium 8.6 Ammonia Troponin I Procalcitonin TSH Urine RBC Urine WBC Ur Squamous Epith Cells Urine Bacteria Ur Culture Indicated? Acetaminophen Ethyl Alcohol A. baumannii (PCR) Sarah albicans (PCR) C. glabrata (PCR) C. krusei (PCR) C. parapsilosis (PCR) C. tropicalis (PCR) Enterobacteriac sp PCR E. cloacae complex PCR Enterococcus sp PCR E. coli (PCR) H. influenzae (PCR) Influenza A & B (PCR) Klebsiella oxytoca PCR Klebsiella pneumoniae List. monocytogenes PCR N. meningitidis (PCR) Proteus species (PCR) Serratia marcescens PCR Staphylococcus sp PCR Staph aureus (PCR) mecA-Methicil Res Gene Streptococcus sp PCR Group A Strep (PCR) Strep agalactiae (PCR) Strep pneumoniae (PCR) P. aeruginosa (PCR) Alee/B-Vanco Res Genes KPC-Carbap Res Gene PCR Assessment & Plan Assessment & Plan narrative: 1. E coli bacteremia associated with what appears to be a sepsis picture. Patient seems to respond appropriately to fluid resuscitation and IV antibiotics. Most likely culprit for this infection would be urinary tract source. Continue with vigorous IV fluid replacement and antibiotic therapy which can be tailored if need be once sensitivities are available. Patient's altered mental status is likely due to her septic picture has evidence of end-organ effect and will hopefully improve once her infection is more adequately treated 2. Acute kidney injury-numbers are improved with fluid resuscitation. Continue with IV fluids and continue to monitor. 3. Cardiac-no evidence of active issue at this time. Continue with telemetry monitoring. I did hold her metoprolol because of her hypotension and I will not give that to her this morning. Assuming blood pressures remain improved with above measures, I have ordered a restart of her metoprolol at 1/2 dose, or 50 mg tomorrow morning. 4. Patient's other medical problems continue to be stable. Note: Greater than 30 minutes was spent evaluating the patient on the floor, including examining the patient, discussing clinical course with clinical and nursing staff, reviewing clinical course in the computer, preparing documen tation and writing orders for continued management of care, discussing status with family as appropriate, reviewing plans for the next 24 hours with both patient/family and nursing staff as appropriate.
[2018-09-27] MEDS: SODIUM CHLORIDE 0.9% 1,000 ML 150 ML IV ×3 (07:18→19:29)
[2018-09-27] MEDS: DOCUSATE 100 MG CAPSULE PO ×2 (09:02→19:31)
[2018-09-27] MEDS: CEFTRIAXONE 1 GM/50 ML FROZ.PIGGY IV ×2 (09:02→20:14)
[2018-09-27] MEDS: BRIMONIDINE 0.2% OPHTH 5 ML 1 DROPS EYE-BOTH ×2 (09:03→19:31)
[2018-09-27] MEDS: APIXABAN 5 MG TABLET PO ×2 (09:03→19:30)
[2018-09-27] MEDS: DORZOLAMIDE/TIMOLOL OPHTH 10 ML 1 DROPS EYE-BOTH ×2 (09:09→19:31)
--- NOTE | 2018-09-27 10:27 | PC.NURSE ---
Addendum entered by Genesis Gallardo R.N. 09/27/18 13:08: MS/ - assisted x1 w/fww ambul to br, voided clear yellow urine, hat missed, ret to bed, earlier headache improved after tylenol I want to take a nap, given warm blanket, call light available, pt placing her cpap on, bed alarm set. Original Note: Addendum entered by Genesis Gallardo R.N. 09/27/18 12:17: PAIN - headache discomfort, 5 on scale 0/10, given 650mg po tylenol, pt req eye drops, discussed feeling of dry eyes, msg left with Norma for Dr. Talamantes. Original Note: Addendum entered by Genesis Gallardo R.N. 09/27/18 11:31: MS/RESP - pt req that she be taken for a walk, assist w/fww x1 person, when stood denies dizziness, when taking steps did state that she felt wobbly and incr sob noted, walked out into the hallway and then ret to br w/void and small bm, then to chair, 02 sat 94%, chair alarm set. Original Note: AM NOTE - pt awakens easily, wearing cpap at bedside report, ra 98%, 02 sat 98%, quality control technician assisted x 1 person w/fww and pt ambul br, bs clear, hr 80, ret to chair w/chair alarm set, pt is oriented, Dr. Talamantes in this am and pt does recall brought to hospital yest [facility] by spouse, 2+ pedal edema, denies discomfort, no nausea, misael diet.
--- NOTE | 2018-09-27 11:14 | PT.IIE ---
Surgical History (Last Reviewed 09/26/18 @ 15:59 by Vincenzo Talamantes MD) History of knee replacement (Resolved) History of nephrectomy (Resolved) History of total mastectomy (Resolved 1998) Status post laminectomy (Resolved) Status post vaginal hysterectomy (Resolved) Medical History (Last Reviewed 09/26/18 @ 15:59 by Vincenzo Talamantes MD) Essential hypertension (Chronic) Mixed hyperlipidemia (Chronic 09/02/12) Acquired hypothyroidism (Chronic 05/04/11) Obstructive sleep apnea syndrome (Chronic 05/04/11) Glaucoma (Chronic 05/04/11) Typical atrial flutter (Chronic 07/31/17) Hypertension (Chronic) Physical Therapy Inpatient Evaluation/Re-Eval M1 PT/OT-IP Prior Functional Status Start: 09/27/18 10:51 Freq: NEEDED Status: Active Protocol: Document 09/27/18 09:20 (Rec: 09/27/18 11:14 [id number]) Medical Review Prior Functional Status Medical History Reviewed Yes Communication No deficits noted. Able to make needs known. EYAK Mobility and Gait Pt was an independent ambulator at home and community. Pt used SPC occasionally. Pt's stated she tends to have slight difficulty getting up from low chair. He also states pt tends to SOB with increased activity level. Activities of Daily Living and IADL's Pt was independent for ADLs and IADLs. 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 Social History Household Members spouse Living Arrangements House Number of Floors (Floors) 3 or More Floors Number of Stairs To Enter/Railing? 2 PHILOME[place] has a counter on side for support stair with L railing going up basement has L railing going down Home Environment Standard Height Toilet Walk in Shower Home Equipment Front Wheel Walker Straight Cane Grab Bars Near Toilet Grab Bars In Shower Employment Status Retired Additional Social History Comment Pt lives with her who is a retired MD in a 3 story home in [place]. They both primarily stays in 1st floor which has 3 bathrooms, bedrooms, living room and kitchen area. Pt used the walk in shower only which also has grab bars in shower and next to toilet. Pt admitted to due to AMS and increased weakness. M2 PT-IP Current Condition Start: 09/27/18 10:51 Freq: NEEDED Status: Active Protocol: Document 09/27/18 09:20 HH (Rec: 09/27/18 11:14 [email or web address]) Physical Therapy Current Condition Current Condition Evaluation Date 09/27/18 Treatment Diagnosis AMS, DE, e-coli +ve, generalized weakness and impaired gait. Onset Date 09/26/18 Weight Bearing Status Weight Bearing Status Weight Bear as Tolerated M3 PT-IP Subjective Start: 09/27/18 10:51 Freq: NEEDED Status: Active Protocol: Document 09/27/18 09:20 HH (Rec: 09/27/18 11:14 [email or web address]) Subjective Physical Therapy Visit Type Type Initial Evaluation Visit Start Time 09:20 Visit Stop Time 10:00 Total Visit Minutes 40 Notes Pt's and son at bedside. Pt up in chair upon assessment. Number of MOTOR ROOM CONTROLLER Visits 0 Physical Therapy Visit Comments Patient Comments I feel better and stronger today. I want to go to bathroom now. Patient Goals To return home with Therapy Pain Assessment Pain Present Pain Present Denied Pain M4 PT-IP Mobility and Gait Start: 09/27/18 10:51 Freq: NEEDED Status: Active Protocol: Document 09/27/18 09:20 HH (Rec: 09/27/18 11:14 [email or web address]) PT-Transfer Assessment Sit to and From Stand Sit to and from Stand Minimal Assistance 1 Person Assistance Use of Upper Extremities Equipment Transfer Assistive Device Gait Belt Front Wheeled Walker Transfers Transfer Destination Bed Chair Toilet Transfer Technique Stand Step Pivot Transfer Ability Level of Assist Contact Guard Assistance Use of Upper Extremities Comments Mobility Comments BP before session = 124/76 BP post session = 127/78 Pt up in chair upon assessment . Pt required min A at end range sit to stand. She then amb to bathroom for toileting. Pt was then able to sit<> stand with one UE on FWW and one on grab bar. She then amb back to sink counter and stood for 10 minutes for clean up with 1 UE support on counter. Pt did need min cues occasionally to remind her to use FWW. Pt appears SOB afterwards and requested to rest. Denies pain and acute distress. Gait Assessment Gait Gait Assistance Required: Contact Guard Assist Distance (Feet) 15 Able to Maintain Weight Bearing Status Yes During Gait Assistive Devices Assistive Device Gait Belt Front Wheeled Walker Gait Deviations General Gait Pattern Decreased Stride Length Decreased Feet Clearance Flexed Trunk Factors Limiting Gait Function Factors Limiting Gait Function Decreased Activity Tolerance Decreased Strength Poor Balance Poor Safety Awareness Comments Gait Comments Pt amb from chair to bathroom, then to sink counter and returned back to chair with FWW CGA. Pt presented increased trunk lean, decreased feet clearance and stride length. She stated I feel a bit unsteady and weak still. Pt requested to sit to rest after standing 10minutes in front of counter. Pt appears SOB. Stair Climbing Assessment Comments Stair Climbing Comments did not attempt due to fatigue PT-Balance Assessment Sitting Balance and Reactions Static Sitting Balance Ability Normal Dynamic Sitting Balance Ability Normal Standing Balance and Reactions Static Standing Balance Ability Good Dynamic Standing Balance Ability Fair Device Used FWW M5 PT-IP Objective Assessments Start: 09/27/18 10:51 Freq: NEEDED Status: Active Protocol: Document 09/27/18 09:20 (Rec: 09/27/18 11:14 [email or web address]) Orientation Orientation/Cognition Level of Alertness Alert Orientation Name Age Birthday Month Date Year Day of Week Place Situation Language Function Ability No Deficits Noted Hard of Hearing Safety Awareness Understands Safety Issues Memory Description No Deficits Noted Gross Range of Motion Upper Extremity ROM Assessment Within Functional Limits Lower Extremity ROM Assessment Within Functional Limits Strength Upper Extremity Strength Assessment Within Functional Limits Lower Extremity Strength Assessment Within Functional Limits Comments Strength Comments 4-/5 overall BLEs Coordination Assessment Gross Coordination Gross Coordination WNL Sensation Assessment Sensation Gross Sensation WNL Light Touch Intact Proprioception (Position) Intact Muscle Tone Muscle Tone WNL Yes M6 PT-IP Treatment Start: 09/27/18 10:51 Freq: NEEDED Status: Active Protocol: Document 09/27/18 09:20 (Rec: 09/27/18 11:14 [email or web address]) Physical Therapy Treatment Exercises Exercises Ankle Pumps Quad Sets Education Education Provided Safety M7 PT-IP Assessment and Plan Start: 09/27/18 10:51 Freq: NEEDED Status: Active Protocol: Document 09/27/18 09:20 (Rec: 09/27/18 11:14 [email or web address]) PT Summary Assessment and Plan Potential Rehabilitation Potential Good Status of Condition at Evaluation Evolving Summary Impairments Strength Balance Bed Mobility Transfers Gait Activity Tolerance Assessment Summary Pt is a pleasant 83yo female admitted to due to AMS, DE , increased weakness and +ve for E-Coli. Pt's son and at bedside today. Upon assessment, pt is AxO x 4. Pt demonstrated weakness, SOB, and decreased stride length and foot clearance but she stated It has been getting better since yesterday. Pt is far from baseline at this point and required to reach rehab goals prior to d/c home. she is expected to be d/c home with 's assistance as needed once she is medically stable Goals Bed Mobility Goal Independent Transfer Goal Independent Cane Front Wheeled Walker Four Wheeled Walker Gait Goal Independent Cane Front Wheel Walker Four Wheel Walker Gait Distance 200 Other Goals climb 2 steps w or without railing Days to Meet Goals 5 Frequency of Treatment Frequency Of Treatment Once a Day Treatment Plan Physical Therapy Treatment Plan Bed Mobility Training Transfer Training Gait Training Therapeutic Exercise Discharge Planning Other Recommendations and Next Treatment transfer and gait training as Focus misael with least restrictive AD stair climbing x 2 w or w/o railing Recommendations To Nursing Amount of Assist Needed 1 Person Assist Discharge Recommendations PT Discharge Recommendations Home with Assistance Equipment Needed for Home Before 4WW Discharge
[2018-09-27] MEDS: IBUPROFEN 400 MG TABLET PO (16:10)
[2018-09-27] MEDS: PRAMIPEXOLE 1 MG TABLET PO (16:37)
[2018-09-27] MEDS: LATANOPROST 0.005% OPHTH 2.5 ML 1 DROPS EYE-BOTH (19:32)
[2018-09-28] VITALS (14 sets, daily range): BP systolic 142–185; BP diastolic 86–117; PULSE 84–110; RESP 18–22; TEMP 36.2–37.4; O2SAT 92–98
--- NOTE | 2018-09-28 03:52 | PC.NURSE ---
Assumed care of pt at 2300 on 09/27/18. Pt sleeping during bedside hand-off. CPAP on, CPOX on. Awakens to voice. Up to bathroom. A/O but forgetful and anxious. 1 PA w/fww and gait belt to bathroom. Heavy void in briefs and toilet. Denies pain or discomfort. Able to reposition independently in bed, enc to do so. Bed alarm on. Call light within reach.
[2018-09-28] MEDS: SODIUM CHLORIDE 0.9% 1,000 ML 150 ML IV ×2 (04:13→16:44)
[2018-09-28] MEDS: LEVOTHYROXINE 150 MCG TABLET PO (05:33)
[2018-09-28] MEDS: ACETAMINOPHEN 325 MG TABLET 650 MG PO (05:35)
[2018-09-28 06:26] LABS: Add Manual Diff / Slide Review NO; Basophils Absolute Auto 0 /uL (0-100); Basophils Percent Auto 0.1 % (0-2); Eosinophils Absolute Auto 100 /uL (0-450); Eosinophils Percent Auto 1.8 % (2-4); Hematocrit 38.5 % (36-46); Hemoglobin 12.5 g/dL (12.0-16.0); Lymphocytes Absolute Auto 500 /uL (1100-4500); Lymphocytes Percent Auto 8.4 % (25-40); Mean Corpuscular HGB Conc 32.4 % (30-36); Mean Corpuscular Hemoglobin 28.5 PG (26-34); Mean Corpuscular Volume 87.9 fL (80-100); Monocytes Absolute Auto 200 /uL (0-900); Monocytes Percent Auto 3.7 % (3-14); Neutrophils Absolute Auto 5100 /uL (1500-7000); Platelet Count 52 X10^3/uL (150-400); Red Blood Cell Count 4.38 X10^6/uL (4.0-5.2); Red Cell Distribution Width 15.5 % (11.6-14.8)
[2018-09-28 06:32] LABS: BUN Creatinine Ratio 22.1 (6-22); Blood Urea Nitrogen 31 mg/dL (7-17); Calcium 9.1 mg/dL (8.4-10.2); Carbon Dioxide 20 mmol/L (22-32); Chloride 106 mmol/L (98-107); Estimated Glomerular Filt Rate 35.8 mL/min (>60); Glucose 113 mg/dL (80-110); HEMOLYSIS < 15 (0-50); Potassium 4.3 mmol/L (3.4-5.1); Sodium 134 mmol/L (137-145)
[2018-09-28] MEDS: METOPROLOL ER 50 MG TABLET PO ×3 (09:10→20:56)
[2018-09-28] MEDS: APIXABAN 5 MG TABLET PO ×2 (09:10→20:40)
[2018-09-28] MEDS: CEFTRIAXONE 1 GM/50 ML FROZ.PIGGY IV ×2 (09:10→20:52)
[2018-09-28] MEDS: DOCUSATE 100 MG CAPSULE PO ×2 (09:10→20:41)
--- NOTE | 2018-09-28 09:10 | P.PN_ITS ---
Subjective Date Patient Seen: 09/28/18 Time Patient Seen: 09:09 Interval history: patient seen and evaluated. Sitting up in the chair eating breakfast. 's at the bedside. She says she is feeling well. She remembers feeling weak at home and not being able to get up. She says she was confused and hallucinating but not anymore. She had a pretty good night last night. She is weak and does not have a lot of strength. She has no complaints of headache dizziness lightheadedness no problems with chest pain shortness of breath. She has some lower extremity edema. She says she is going to the bathroom just fine now. No diarrhea. Exam Vital Signs (past 8 hours): - 09/28/18 04:00 Temperature 97.2 F L Pulse Rate 89 Respiratory Rate 18 Blood Pressure 146/93 H Pulse Oximetry 95 Oxygen Delivery Method Room Air Oxygen Flow Rate 0 Narrative Exam Narrative: General: Alert no apparent distress mood and affect is appropriate. HEENT: Pupils equal round and reactive or mucosa is moist neck is supple Cardio: S1-S2 slight tachycardia. Irregular Respiratory: Lungs are clear no wheezes or crackles. Abdomen: Soft nontender. Extremities: 2+ edema warm dry perfused. Objective Labs Result Diagrams: 09/29/18 06:10 09/29/18 06:10 Labs: Laboratory Results - last 24 hr 09/28/18 09/28/18 06:02 06:02 WBC 6.0 RBC 4.38 Hgb 12.5 Hct 38.5 MCV 87.9 MCH 28.5 MCHC 32.4 RDW 15.5 H Plt Count 52 L Neut % (Auto) 86.0 H Lymph % (Auto) 8.4 L [place] % (Auto) 3.7 Eos % (Auto) 1.8 L Baso % (Auto) 0.1 Neut # (Auto) 5100 Lymph # (Auto) 500 L [place] # (Auto) 200 Eos # (Auto) 100 Baso # (Auto) 0 Sodium 134 L Potassium 4.3 Chloride 106 Carbon Dioxide 20 L BUN 31 H Creatinine 1.40 H Estimated GFR 35.8 L BUN/Creatinine Ratio 22.1 H Glucose 113 H Calcium 9.1 Assessment & Plan Assessment & Plan narrative: Sepsis due to urinary tract infection due to E coli. Positive in urine as well as in blood cultures. She is currently on ceftriaxone. She initially had white blood cell count fever hypotension signs of end-organ damage with renal failure. His all improving. Her creatinine is improved her white blood cell count has improved as well as her kidney function. Will continue her on IV antibiotics as we are waiting for culture final results. She does look a little bit better although she still quite tach ycardic. Acute Kidney injury in a patient previously had operation on her kidney for renal cell carcinoma. She only has 1 kidney left. Her creatinine is returning back to baseline next increase down IV fluids. Monitor closely electrolytes and kidney function. Atrial flutter. Tachycardia due to infection. Underlying. Will continue replacement of her metoprolol and increase the dose to 100 mg once a day. And as needed doses needed to help keep her blood pressure under control. She is on anticoagulation with Eliquis. Hypothyroidism she is on thyroid replacement Hypertension blood pressure is high. Will add back in her antihypertensive. Chest pain episode yesterday. thinks probably due to nerves. EKG and cardiac enzymes are normal. Will continue to monitor. Urinary frequency retention. Worse now. Disposition plan still weak tachycardic and hypertensive. Continue with blood pressure management working with physical and occupational therapy.
[2018-09-28] MEDS: DORZOLAMIDE/TIMOLOL OPHTH 10 ML 1 DROPS EYE-BOTH ×2 (09:11→20:41)
[2018-09-28] MEDS: BRIMONIDINE 0.2% OPHTH 5 ML 1 DROPS EYE-BOTH ×2 (09:11→20:41)
--- NOTE | 2018-09-28 10:43 | PT.IPTN ---
Current Diagnoses Urinary tract infection, site not specified (09/26/18) Physical Therapy Treatment Note M2 PT-IP Current Condition Start: 09/27/18 10:51 Freq: NEEDED Status: Active Protocol: Document 09/27/18 09:20 HH (Rec: 09/27/18 11:14 HH [email or web address]) Physical Therapy Current Condition Current Condition Evaluation Date 09/27/18 Treatment Diagnosis AMS, DE, e-coli +ve, generalized weakness and impaired gait. Onset Date 09/26/18 Weight Bearing Status Weight Bearing Status Weight Bear as Tolerated M3 PT-IP Subjective Start: 09/27/18 10:51 Freq: NEEDED Status: Active Protocol: Document 09/28/18 10:43 AB (Rec: 09/28/18 12:36 AB [email or web address]) Subjective Physical Therapy Visit Type Type Treatment Note Visit Start Time 10:43 Visit Stop Time 11:03 Total Visit Minutes 20 Number of HOOP BENDER TANK Visits 0 Physical Therapy Visit Comments Patient Comments pt agreeable to do PT Therapy Pain Assessment Pain Present Pain Present Denied Pain M4 PT-IP Mobility and Gait Start: 09/27/18 10:51 Freq: NEEDED Status: Active Protocol: Document 09/28/18 10:43 AB (Rec: 09/28/18 12:36 AB [email or web address]) PT-Bed Mobility Assessment Supine to Sit Supine to Sit Standby Assistance Scooting Scooting to Edge of Bed Standby Assistance PT-Transfer Assessment Sit to and From Stand Sit to and from Stand Contact Guard Assistance Minimal Assistance Equipment Transfer Assistive Device Gait Belt Front Wheeled Walker Transfers Transfer Destination Toilet Transfer Technique pt ambulated to the toilet using FWW Transfer Ability Level of Assist Standby Assistance Contact Guard Assistance Use of Upper Extremities Comments Mobility Comments pt completed supine to sit but with difficulty requiring increase time to complete task . pt completed sit to stand from the bed requiring CGA to min A but only required SBA to CGA with ambulation to the toilet. pt required min A with sit to stand from the toilet. able to maintain standing balance using FWW for support but assisted with hygiene care and brief management. Gait Assessment Gait Gait Assistance Required: Standby Assistance Contact Guard Assist Distance (Feet) 200 Able to Maintain Weight Bearing Status Yes During Gait Assistive Devices Assistive Device Gait Belt Front Wheeled Walker Orthotic/Prosthetic Devices or Brace: No Gait Deviations General Gait Pattern Antalgic Decreased Stride Length Decreased Feet Clearance Factors Limiting Gait Function Factors Limiting Gait Function Decreased Activity Tolerance Decreased Strength Poor Balance Comments Gait Comments (+) SOB during and after ambulation. O2 sat 94-97%. HR 101 to 121 bpm M5 PT-IP Objective Assessments Start: 09/27/18 10:51 Freq: NEEDED Status: Active Protocol: Document 09/27/18 09:20 HH (Rec: 09/27/18 11:14 HH [email or web address]) Orientation Orientation/Cognition Level of Alertness Alert Orientation Name Age Birthday Month Date Year Day of Week Place Situation Language Function Ability No Deficits Noted Hard of Hearing Safety Awareness Understands Safety Issues Memory Description No Deficits Noted Gross Range of Motion Upper Extremity ROM Assessment Within Functional Limits Lower Extremity ROM Assessment Within Functional Limits Strength Upper Extremity Strength Assessment Within Functional Limits Lower Extremity Strength Assessment Within Functional Limits Comments Strength Comments 4-/5 overall BLEs Coordination Assessment Gross Coordination Gross Coordination WNL Sensation Assessment Sensation Gross Sensation WNL Light Touch Intact Proprioception (Position) Intact Muscle Tone Muscle Tone WNL Yes M6 PT-IP Treatment Start: 09/27/18 10:51 Freq: NEEDED Status: Active Protocol: Document 09/28/18 10:43 AB (Rec: 09/28/18 12:36 AB [email or web address]) Physical Therapy Treatment Education Education Provided Safety M7 PT-IP Assessment and Plan Start: 09/27/18 10:51 Freq: NEEDED Status: Active Protocol: Document 09/28/18 10:43 AB (Rec: 09/28/18 12:36 AB [email or web address]) PT Summary Assessment and Plan Potential Rehabilitation Potential Good Summary Impairments Strength Balance Bed Mobility Transfers Gait Activity Tolerance Progress Towards Goals Slow Progress due to Activity Tolerance Assessment Summary pt requiring one person assist with mobility. pt plans to go home and stated that her will be able to assist her at home. pt also stated that they can get a FWW for her to use. Goals Bed Mobility Goal Independent Transfer Goal Independent Cane Front Wheeled Walker Four Wheeled Walker Gait Goal Independent Cane Front Wheel Walker Four Wheel Walker Gait Distance 200 Other Goals climb 2 steps w or without railing Days to Meet Goals 5 Frequency of Treatment Frequency Of Treatment Once a Day Treatment Plan Physical Therapy Treatment Plan Bed Mobility Training Transfer Training Gait Training Therapeutic Exercise Discharge Planning Other Recommendations and Next Treatment transfer and gait training as Focus misael with least restrictive AD stair climbing x 2 w or w/o railing Recommendations To Nursing Amount of Assist Needed 1 Person Assist Discharge Recommendations PT Discharge Recommendations Home with Assistance
--- NOTE | 2018-09-28 14:14 | PC.NURSE ---
Pt sitting up on the side of the bed and reporting chest pain to left chest/breast area 04/01. Pt states pain is achy, sharp, and acute. Pt denies nausea or dizziness. Pt is short of breath with exertion. O2 sat is 95% RA, Shallow breaths, BP 179/110, HR 89. Stat EKG ordered per protocol. Dr. Murdock paged. Pt reports pain has now gone away. Will await return call from Dr. Murdock.
--- NOTE | 2018-09-28 15:53 | CM.DANOTE ---
Discharge Planning/Care Management DCP: assessment: case received yesterday, discussed in Team Rounds both yesterday and today. EMR reviewed. Met with pt and her Dr. Dileep Morel. Introduced self and role. Pt is an 83 year old female who admitted to care of PCP: Dr. Talamantes evening of 09/26. Payer: Medicare and a commercial insurance/refer to ACG collected notes for details. INPT admission status: confirmed by UR RN team. Dr. Murdock saw pt this morning and a partial draft of his progress note is reviewed. KEVIN Haines, caring for pt today, has paged Dr. Murdock this afternoon after another episode of sharp chest pain. PT did see pt earlier today. OT is note ordered but pt may benefit from same when medically more stable. P: follow as POC unfolds to assist with d/c issues and options. A home plan is likely but will follow as noted. CM Discharge Assessment Start: 09/28/18 15:49 Freq: Status: Active Protocol: Document 09/28/18 15:51 ITV (Rec: 09/28/18 15:53 ITV [email or web address]) Discharge Planning Assessment Advance Directives? Yes History Provided By Patient Family Member Medical Record Prior Living Arrangements House Household Members spouse Comment Lives with her Dr. 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 Whiteboard Updated in Patient Room with Yes name and ext. # of Solvent Station Attendant Review Status In Process Next Review Type Continued Stay Review
[2018-09-28 17:39] LABS: Creatine Kinase 30 U/L (30-135)
[2018-09-28 17:52] LABS: Troponin I < 0.012 ng/mL (0.01-0.034)
[2018-09-28] MEDS: GABAPENTIN 600 MG TABLET PO (20:41)
[2018-09-28] MEDS: LATANOPROST 0.005% OPHTH 2.5 ML 1 DROPS EYE-BOTH (20:41)
[2018-09-28] MEDS: PRAMIPEXOLE 0.25 MG TABLET 0.5 MG PO (20:42)
[2018-09-28] MEDS: TRAZODONE 100 MG TABLET PO (20:42)
[2018-09-29] VITALS (10 sets, daily range): BP systolic 135–167; BP diastolic 75–99; PULSE 74–110; RESP 17–20; TEMP 36.4–37.1; O2SAT 93–96
[2018-09-29] MEDS: LEVOTHYROXINE 150 MCG TABLET PO (05:56)
[2018-09-29 06:24] LABS: Add Manual Diff / Slide Review NO; Basophils Absolute Auto 0 /uL (0-100); Basophils Percent Auto 0.3 % (0-2); Eosinophils Absolute Auto 100 /uL (0-450); Eosinophils Percent Auto 0.8 % (2-4); Hematocrit 37.6 % (36-46); Hemoglobin 12.4 g/dL (12.0-16.0); Lymphocytes Absolute Auto 900 /uL (1100-4500); Lymphocytes Percent Auto 11.9 % (25-40); Mean Corpuscular HGB Conc 33.1 % (30-36); Mean Corpuscular Hemoglobin 28.7 PG (26-34); Mean Corpuscular Volume 86.9 fL (80-100); Monocytes Absolute Auto 500 /uL (0-900); Neutrophils Absolute Auto 6000 /uL (1500-7000); Platelet Count 70 X10^3/uL (150-400); Red Blood Cell Count 4.33 X10^6/uL (4.0-5.2); Red Cell Distribution Width 15.5 % (11.6-14.8); White Blood Cell Count 7.5 X10^3/uL (4.5-11.0)
[2018-09-29 06:25] LABS: INR 1.5 (0.9-1.3); Prothrombin Time 17.4 SECONDS (10.1-12.7)
[2018-09-29 06:35] LABS: BUN Creatinine Ratio 18.3 (6-22); Blood Urea Nitrogen 22 mg/dL (7-17); Calcium 9.4 mg/dL (8.4-10.2); Carbon Dioxide 21 mmol/L (22-32); Chloride 105 mmol/L (98-107); Estimated Glomerular Filt Rate 42.8 mL/min (>60); Glucose 98 mg/dL (80-110); HEMOLYSIS < 15 (0-50); Potassium 4.1 mmol/L (3.4-5.1); Sodium 133 mmol/L (137-145)
--- NOTE | 2018-09-29 07:26 | P.PN_ITS ---
Subjective Date Patient Seen: 09/29/18 Time Patient Seen: 07:24 Interval history: Patient had a good day yesterday. One episode of chest pain. EKG cardiac enzymes are okay. Patient doing well this morning. Had an okay night sleep. Still ongoing urinary frequency. Eating well. Still quite weak. Working with physical and occupational therapy. Positive bowel movement and urination. No further confusion. Exam Vital Signs (past 8 hours): - 09/28/18 23:00 09/28/18 23:50 09/29/18 01:32 Temperature 97.8 F Pulse Rate 110 H 110 H Respiratory Rate 22 Blood Pressure 156/99 H 156/99 H Pulse Oximetry 92 92 09/29/18 06:15 Temperature 98.7 F Pulse Rate 105 H Respiratory Rate 18 Blood Pressure 167/86 H Pulse Oximetry 93 Oxygen Delivery Method Room Air Oxygen Flow Rate 0 Narrative Exam Narrative: General: alert arousable resting comfortably in bed. HEENT: Pupils equal round and reactive or mucosa is moist neck is supple Cardio: S1-S2 tachycardic. Sounds regular. Respiratory: Clear to auscultation no wheezes Abdomen: Soft nontender Extremities: 2+ edema Objective Labs Result Diagrams: 09/29/18 06:10 09/29/18 06:10 Labs: Laboratory Results - last 24 hr 09/28/18 09/28/18 09/28/18 06:02 06:02 17:20 WBC 6.0 RBC 4.38 Hgb 12.5 Hct 38.5 MCV 87.9 MCH 28.5 MCHC 32.4 RDW 15.5 H Plt Count 52 L Neut % (Auto) 86.0 H Lymph % (Auto) 8.4 L [place] % (Auto) 3.7 Eos % (Auto) 1.8 L Baso % (Auto) 0.1 Neut # (Auto) 5100 Lymph # (Auto) 500 L [place] # (Auto) 200 Eos # (Auto) 100 Baso # (Auto) 0 PT INR Sodium 134 L Potassium 4.3 Chloride 106 Carbon Dioxide 20 L BUN 31 H Creatinine 1.40 H Estimated GFR 35.8 L BUN/Creatinine Ratio 22.1 H Glucose 113 H Calcium 9.1 Total Creatine Kinase 30 CK-MB (CK-2) TNP CK-MB (CK-2) Rel Index TNP Troponin I < 0.012 0309/29/18 09/29/18 06:10 06:10 06:10 WBC 7.5 RBC 4.33 Hgb 12.4 Hct 37.6 MCV 86.9 MCH 28.7 MCHC 33.1 RDW 15.5 H Plt Count 70 L Neut % (Auto) 80.0 H Lymph % (Auto) 11.9 L [place] % (Auto) 7.0 Eos % (Auto) 0.8 L Baso % (Auto) 0.3 Neut # (Auto) 6000 Lymph # (Auto) 900 L [place] # (Auto) 500 Eos # (Auto) 100 Baso # (Auto) 0 PT 17.4 H D INR 1.5 H Sodium 133 L Potassium 4.1 Chloride 105 Carbon Dioxide 21 L BUN 22 H Creatinine 1.20 H Estimated GFR 42.8 L BUN/Creatinine Ratio 18.3 Glucose 98 Calcium 9.4 Total Creatine Kinase CK-MB (CK-2) CK-MB (CK-2) Rel Index Troponin I Assessment & Plan Assessment & Plan narrative: Sepsis due to urinary tract infection due to E co li. Positive in urine as well as in blood cultures. She is currently on ceftriaxone. white blood cell count improved. Culture results shows sensitive to ceftriaxone we will continue. Overall improving. Acute Kidney injury in a patient previously had operation on her kidney for renal cell carcinoma. She only has 1 kidney left. Creatinine is continue to improved. Stop IV fluid. Atrial flutter. Tachycardia due to infection. Underlying. Will continue replacement of her metoprolol and increase the dose to 100 mg once a day. And as needed doses needed to help keep her blood pressure under control. She is on anticoagulation with Eliquis. Hypothyroidism she is on thyroid replacement Hypertension blood pressure is high. Will add back in her antihypertensive. Chest pain episode yesterday. thinks probably due to nerves. EKG and cardiac enzymes are normal. Will continue to monitor. Urinary frequency retention. in the past she is tied oxybutynin which did not help in cause urinary retention will just monitor for now. Disposition plan still weak tachycardic and hypertensive. Continue with blood pressure management working with physical and occupational therapy.
[2018-09-29] MEDS: CEFTRIAXONE 1 GM/50 ML FROZ.PIGGY IV ×2 (08:47→21:20)
[2018-09-29] MEDS: METOPROLOL ER 50 MG TABLET 100 MG PO (08:47)
[2018-09-29] MEDS: APIXABAN 5 MG TABLET PO ×2 (08:49→20:23)
[2018-09-29] MEDS: BRIMONIDINE 0.2% OPHTH 5 ML 1 DROPS EYE-BOTH ×2 (08:49→20:20)
[2018-09-29] MEDS: DOCUSATE 100 MG CAPSULE PO ×2 (08:49→20:23)
[2018-09-29] MEDS: LOSARTAN 50 MG TABLET PO (08:50)
[2018-09-29] MEDS: DORZOLAMIDE/TIMOLOL OPHTH 10 ML 1 DROPS EYE-BOTH ×2 (08:50→20:24)
[2018-09-29] MEDS: ACETAMINOPHEN 325 MG TABLET 650 MG PO (13:53)
--- NOTE | 2018-09-29 17:24 | PT.IPTN ---
Current Diagnoses Urinary tract infection, site not specified (09/26/18) Physical Therapy Treatment Note M2 PT-IP Current Condition Start: 09/27/18 10:51 Freq: NEEDED Status: Active Protocol: Document 09/27/18 09:20 HH (Rec: 09/27/18 11:14 HH [email or web address]) Physical Therapy Current Condition Current Condition Evaluation Date 09/27/18 Treatment Diagnosis AMS, DE, e-coli +ve, generalized weakness and impaired gait. Onset Date 09/26/18 Weight Bearing Status Weight Bearing Status Weight Bear as Tolerated M3 PT-IP Subjective Start: 09/27/18 10:51 Freq: NEEDED Status: Active Protocol: Document 09/29/18 16:57 LRN (Rec: 09/29/18 17:24 LRN [id number]) Subjective Physical Therapy Visit Type Type Treatment Note Visit Start Time 14:35 Visit Stop Time 16:57 Total Visit Minutes 22 Number of ABATTOIR MANAGER Visits 0 Physical Therapy Visit Comments Patient Comments Blood pressure is better. Thinks she is doing better today. Cooperative for therapy. Patient Goals To return home with M4 PT-IP Mobility and Gait Start: 09/27/18 10:51 Freq: NEEDED Status: Active Protocol: Document 09/29/18 16:57 LRN (Rec: 09/29/18 17:24 LRN [id number]) PT-Transfer Assessment Sit to and From Stand Sit to and from Stand Standby Assistance Equipment Transfer Assistive Device Gait Belt Front Wheeled Walker Orthotic/Prosthetic Devices or Brace: No Transfer Ability Level of Assist Standby Assistance Use of Upper Extremities Comments Mobility Comments Pt sitting at start of therapy and left sitting at end of therapy. Spouse was present at end of therapy. Gait Assessment Gait Gait Assistance Required: Contact Guard Assist Distance (Feet) 200 Able to Maintain Weight Bearing Status Yes During Gait Assistive Devices Assistive Device Gait Belt Front Wheeled Walker Orthotic/Prosthetic Devices or Brace: No Gait Deviations General Gait Pattern Antalgic Decreased Stride Length Decreased Feet Clearance Factors Limiting Gait Function Factors Limiting Gait Function Decreased Activity Tolerance Poor Balance Poor Safety Awareness Respiratory Distress Comments Gait Comments Pt required 2 standing stop rests due to SOB. Stair Climbing Assessment Comments Stair Climbing Comments Held stair climbing due to pt' s SOB and fatigue with gait. M5 PT-IP Objective Assessments Start: 09/27/18 10:51 Freq: NEEDED Status: Active Protocol: Document 09/27/18 09:20 HH (Rec: 09/27/18 11:14 [email or web address]) Orientation Orientation/Cognition Level of Alertness Alert Orientation Name Age Birthday Month Date Year Day of Week Place Situation Language Function Ability No Deficits Noted Hard of Hearing Safety Awareness Understands Safety Issues Memory Description No Deficits Noted Gross Range of Motion Upper Extremity ROM Assessment Within Functional Limits Lower Extremity ROM Assessment Within Functional Limits Strength Upper Extremity Strength Assessment Within Functional Limits Lower Extremity Strength Assessment Within Functional Limits Comments Strength Comments 4-/5 overall BLEs Coordination Assessment Gross Coordination Gross Coordination WNL Sensation Assessment Sensation Gross Sensation WNL Light Touch Intact Proprioception (Position) Intact Muscle Tone Muscle Tone WNL Yes M6 PT-IP Treatment Start: 09/27/18 10:51 Freq: NEEDED Status: Active Protocol: Document 09/29/18 16:57 LRN (Rec: 09/29/18 17:24 LRN [id number]) Physical Therapy Treatment Exercises Exercises Ankle Pumps Short Arc Quads Other Treatments Other Treatment Performed Assess response to exercise ( taken on L arm): Start of therapy: BP 143/91, HR 81 After sit exercise: BP 142/95 , HR 104, SpO2 93$ After gait: BP 145/97, HR 108, SpO2 89% M7 PT-IP Assessment and Plan Start: 09/27/18 10:51 Freq: NEEDED Status: Active Protocol: Document 09/29/18 16:57 LRN (Rec: 09/29/18 17:24 LRN [id number]) PT Summary Assessment and Plan Potential Rehabilitation Potential Good Summary Impairments Strength Balance Activity Tolerance Progress Towards Goals Slow Progress due to Activity Tolerance Assessment Summary Pt limited with therapy due to SOB with exercise and activity. She appeared to recover more quickly with purse-lipped breathing. Further training on use of diaphragmatic breathing will probably help to reduce SOB symptoms. She plans to go home with her supportive to assist. Pt will need a FWW for her to use at home. Goals Bed Mobility Goal Independent Transfer Goal Independent Cane Front Wheeled Walker Four Wheeled Walker Gait Goal Independent Cane Front Wheel Walker Four Wheel Walker Gait Distance 200 Other Goals climb 2 steps w or without railing Days to Meet Goals 5 Frequency of Treatment Frequency Of Treatment Once a Day Treatment Plan Physical Therapy Treatment Plan Bed Mobility Training Transfer Training Gait Training Therapeutic Exercise Discharge Planning Other Recommendations and Next Treatment Pt training for deep breathing Focus and purse lipped breathing training when she is feeling SOB. Transfer and gait training as misael with least restrictive AD Stair climbing x 2 w or w/o railing. Recommendations To Nursing Amount of Assist Needed 1 Person Assist Discharge Recommendations PT Discharge Recommendations Home with Assistance Equipment Needed for Home Before FWW Discharge
[2018-09-29] MEDS: PRAMIPEXOLE 0.25 MG TABLET 0.5 MG PO (20:23)
[2018-09-29] MEDS: GABAPENTIN 600 MG TABLET PO (20:23)
[2018-09-29] MEDS: TRAZODONE 100 MG TABLET PO (20:23)
[2018-09-29] MEDS: LATANOPROST 0.005% OPHTH 2.5 ML 1 DROPS EYE-BOTH (20:23)
[2018-09-29] MEDS: SODIUM CHLORIDE 0.9% FLUSH 10 ML IV (20:24)
[2018-09-30] VITALS (12 sets, daily range): BP systolic 131–156; BP diastolic 80–98; PULSE 72–104; RESP 16–20; TEMP 36–37.2; O2SAT 93–97
--- NOTE | 2018-09-30 | DI.RAD.S_ITS ---
PROCEDURE: XR CHEST 1V INDICATIONS: cough/dyspnea TECHNIQUE: One view of the chest was acquired. COMPARISON: [facility], CR, XR CHEST 1V, 04/18/2018, 12:01. [facility], CR, XR CHEST 1V, 07/09/2018, 9:41. [facility], CR, XR CHEST 1V, 09/26/2018, 13:33. FINDINGS: Surgical changes and devices: None. Lungs and pleura: Left basilar scars/atelectasis. Chronic interstitial prominence. No pleural effusions or pneumothorax. Mediastinum: Mediastinal contours appear normal. Heart size is normal. Bones and chest wall: No suspicious bony lesions. Overlying soft tissues appear unremarkable. IMPRESSION: No acute disease. Dictated by: Hanna Raines M.D. on 09/30/2018 at 10:49 Approved by: Hanna Raines M.D. on 09/30/2018 at 10:51
--- NOTE | 2018-09-30 03:04 | PC.NURSE ---
2300- Pt sleeping w/ CPAP in place. Assessment complete; pt is A+Ox3 w/ no evidence of AMS at this time. Tele in place reading SR w/ 1st degree AVB. VSS.
[2018-09-30 05:41] LABS: Add Manual Diff / Slide Review NO; Basophils Absolute Auto 0 /uL (0-100); Basophils Percent Auto 0.4 % (0-2); Eosinophils Absolute Auto 200 /uL (0-450); Eosinophils Percent Auto 2.1 % (2-4); Hematocrit 36.7 % (36-46); Hemoglobin 12.2 g/dL (12.0-16.0); Lymphocytes Absolute Auto 1300 /uL (1100-4500); Lymphocytes Percent Auto 14.5 % (25-40); Mean Corpuscular HGB Conc 33.1 % (30-36); Mean Corpuscular Hemoglobin 28.4 PG (26-34); Mean Corpuscular Volume 85.9 fL (80-100); Monocytes Absolute Auto 700 /uL (0-900); Monocytes Percent Auto 8.2 % (3-14); Neutrophils Absolute Auto 6600 /uL (1500-7000); Neutrophils Percent Auto 74.8 % (50-75); Platelet Count 83 X10^3/uL (150-400); Red Blood Cell Count 4.28 X10^6/uL (4.0-5.2); Red Cell Distribution Width 15.7 % (11.6-14.8); White Blood Cell Count 8.8 X10^3/uL (4.5-11.0)
[2018-09-30 06:00] LABS: Alanine Aminotransferase 53 IU/L (9-52); Albumin 2.6 g/dL (3.5-5.0); Alkaline Phosphatase 140 U/L (38-126); Aspartate Aminotransferase 28 IU/L (14-36); Bilirubin Total 0.4 mg/dL (0.2-1.3); Blood Urea Nitrogen 16 mg/dL (7-17); Carbon Dioxide 21 mmol/L (22-32); Chloride 104 mmol/L (98-107); Estimated Glomerular Filt Rate 52.8 mL/min (>60); Globulin 2.5 g/dL (1.7-4.1); Glucose 115 mg/dL (80-110); HEMOLYSIS < 15 (0-50); Potassium 3.6 mmol/L (3.4-5.1); Sodium 134 mmol/L (137-145); Total Protein 5.1 g/dL (6.3-8.2)
[2018-09-30] MEDS: LEVOTHYROXINE 150 MCG TABLET PO (06:38)
[2018-09-30] MEDS: ACETAMINOPHEN 325 MG TABLET 650 MG PO (07:46)
--- NOTE | 2018-09-30 08:01 | P.PN_ITS ---
Subjective Date Patient Seen: 09/30/18 Time Patient Seen: 07:58 Interval history: Patient developed a cough over night apparently. It is bothering her quite a bit. She has also been dyspneic at times up with activity. Had some episodes of sharp chest pain. EKG unremarkable during those times but she is modestly hypertensive as well This morning the cough is the biggest bother Says she feels pretty good getting up out of bed at least to the bathroom Exam Vital Signs (past 8 hours): - 09/30/18 00:50 09/30/18 02:58 09/30/18 03:43 Temperature 96.8 F L 97.5 F L Pulse Rate 72 80 Respiratory Rate 16 16 Blood Pressure 146/80 H 135/81 Pulse Oximetry 96 96 97 09/30/18 07:00 Temperature 98.3 F Pulse Rate 104 H Respiratory Rate 18 Blood Pressure 147/83 H Pulse Oximetry 93 Oxygen Delivery Method Room Air Oxygen Flow Rate 0 Narrative Exam Narrative: HEENT-unremarkable, normocephalic atraumatic Neck-no lymphadenopathy no bruits Lungs-clear anteriorly and posteriorly End-expiratory wheezes without crackles good breath sounds Heart-regular rate and rhythm, no murmur, rub, or gallop. normal S1-S2 Abdomen-positive bowel tones, soft, nontender, nondistended, no hepatosplenomegaly, no masses palpable Neuro-normal to screening exam, gait not tested Extremities-no cyanosis clubbing or edema Objective Labs Result Diagrams: 09/30/18 05:27 09/30/18 05:27 Labs: Laboratory Results - last 24 hr 09/30/18 09/30/18 05:27 05:27 WBC 8.8 RBC 4.28 Hgb 12.2 Hct 36.7 MCV 85.9 MCH 28.4 MCHC 33.1 RDW 15.7 H Plt Count 83 L Neut % (Auto) 74.8 Lymph % (Auto) 14.5 L [place] % (Auto) 8.2 Eos % (Auto) 2.1 Baso % (Auto) 0.4 Neut # (Auto) 6600 Lymph # (Auto) 1300 [place] # (Auto) 700 Eos # (Auto) 200 Baso # (Auto) 0 Sodium 134 L Potassium 3.6 Chloride 104 Carbon Dioxide 21 L BUN 16 Creatinine 1.00 Estimated GFR 52.8 L BUN/Creatinine Ratio 16.0 Glucose 115 H Calcium 9.0 Total Bilirubin 0.4 AST 28 ALT 53 H Alkaline Phosphatase 140 H Total Protein 5.1 L Albumin 2.6 L Globulin 2.5 Albumin/Globulin Ratio 1.0 Assessment & Plan Assessment & Plan narrative: 1. Urosepsis -continue with ceftriaxone. E coli from blood is sensitive to this and when patient is closer to discharge was switched to an oral medication 2. cough - will check chest x-ray today. I suspect there is some element of volume overload here given the amount of IV fluids she required to resuscitate her as she was more septic. I am going to start Lasix IV today and check a chest x-ray as above. Doubt this is infectious etiology. 3. cardiac dysrhythmia -continue with Eliquis and continue cardiac monitoring. Patient back on full dose of metoprolol 4. Hypertension - patient back on full dose metoprolol and will increase losartan back to full dose. Overall patient has vastly improved over where she was when I saw her last. She is actually physically stronger than would guess will need to continue with physical therapy and will likely be able to go home when ready for discharge some time probably the next 48-72 hours.
[2018-09-30] MEDS: APIXABAN 5 MG TABLET PO ×2 (08:33→22:07)
[2018-09-30] MEDS: FUROSEMIDE 40 MG/4 ML VIAL IV (08:33)
[2018-09-30] MEDS: BRIMONIDINE 0.2% OPHTH 5 ML 1 DROPS EYE-BOTH ×2 (08:33→22:08)
[2018-09-30] MEDS: CEFTRIAXONE 1 GM/50 ML FROZ.PIGGY IV ×2 (08:37→22:10)
[2018-09-30] MEDS: DOCUSATE 100 MG CAPSULE PO ×2 (08:38→22:07)
[2018-09-30] MEDS: LOSARTAN 50 MG TABLET 100 MG PO (08:38)
[2018-09-30] MEDS: DORZOLAMIDE/TIMOLOL OPHTH 10 ML 1 DROPS EYE-BOTH ×2 (08:38→22:08)
[2018-09-30] MEDS: METOPROLOL ER 50 MG TABLET 100 MG PO (08:39)
[2018-09-30] MEDS: guaiFENesin/DEXTROMETH Syrup 5 ML SYRUP PO (08:40)
--- NOTE | 2018-09-30 10:15 | PT.IPTN ---
Current Diagnoses Urinary tract infection, site not specified (09/26/18) Physical Therapy Treatment Note M2 PT-IP Current Condition Start: 09/27/18 10:51 Freq: NEEDED Status: Active Protocol: Document 09/27/18 09:20 HH (Rec: 09/27/18 11:14 HH [id number]) Physical Therapy Current Condition Current Condition Evaluation Date 09/27/18 Treatment Diagnosis AMS, DE, e-coli +ve, generalized weakness and impaired gait. Onset Date 09/26/18 Weight Bearing Status Weight Bearing Status Weight Bear as Tolerated M3 PT-IP Subjective Start: 09/27/18 10:51 Freq: NEEDED Status: Active Protocol: Document 09/30/18 10:15 RS (Rec: 09/30/18 15:50 RS [id number]) Subjective Physical Therapy Visit Type Type Treatment Note Visit Start Time 10:00 Visit Stop Time 10:15 Total Visit Minutes 15 Physical Therapy Visit Comments Patient Comments Pt quite tired today. M4 PT-IP Mobility and Gait Start: 09/27/18 10:51 Freq: NEEDED Status: Active Protocol: Document 09/29/18 16:57 LRN (Rec: 09/29/18 17:24 LRN [id number]) PT-Transfer Assessment Sit to and From Stand Sit to and from Stand Standby Assistance Equipment Transfer Assistive Device Gait Belt Front Wheeled Walker Orthotic/Prosthetic Devices or Brace: No Transfer Ability Level of Assist Standby Assistance Use of Upper Extremities Comments Mobility Comments Pt sitting at start of therapy and left sitting at end of therapy. Spouse was present at end of therapy. Gait Assessment Gait Gait Assistance Required: Contact Guard Assist Distance (Feet) 200 Able to Maintain Weight Bearing Status Yes During Gait Assistive Devices Assistive Device Gait Belt Front Wheeled Walker Orthotic/Prosthetic Devices or Brace: No Gait Deviations General Gait Pattern Antalgic Decreased Stride Length Decreased Feet Clearance Factors Limiting Gait Function Factors Limiting Gait Function Decreased Activity Tolerance Poor Balance Poor Safety Awareness Respiratory Distress Comments Gait Comments Pt required 2 standing stop rests due to SOB. Stair Climbing Assessment Comments Stair Climbing Comments Held stair climbing due to pt' s SOB and fatigue with gait. M5 PT-IP Objective Assessments Start: 09/27/18 10:51 Freq: NEEDED Status: Active Protocol: Document 09/27/18 09:20 HH (Rec: 09/27/18 11:14 HH [email or web address]) Orientation Orientation/Cognition Level of Alertness Alert Orientation Name Age Birthday Month Date Year Day of Week Place Situation Language Function Ability No Deficits Noted Hard of Hearing Safety Awareness Understands Safety Issues Memory Description No Deficits Noted Gross Range of Motion Upper Extremity ROM Assessment Within Functional Limits Lower Extremity ROM Assessment Within Functional Limits Strength Upper Extremity Strength Assessment Within Functional Limits Lower Extremity Strength Assessment Within Functional Limits Comments Strength Comments 4-/5 overall BLEs Coordination Assessment Gross Coordination Gross Coordination WNL Sensation Assessment Sensation Gross Sensation WNL Light Touch Intact Proprioception (Position) Intact Muscle Tone Muscle Tone WNL Yes M6 PT-IP Treatment Start: 09/27/18 10:51 Freq: NEEDED Status: Active Protocol: Document 09/30/18 10:15 RS (Rec: 09/30/18 15:50 RS [id number]) Physical Therapy Treatment Other Treatments Other Treatment Performed Pt provided with diaphragmatic breathing handout for review and further practice in subsequent sessions. M7 PT-IP Assessment and Plan Start: 09/27/18 10:51 Freq: NEEDED Status: Active Protocol: Document 09/29/18 16:57 LRN (Rec: 09/29/18 17:24 LRN [id number]) PT Summary Assessment and Plan Potential Rehabilitation Potential Good Summary Impairments Strength Balance Activity Tolerance Progress Towards Goals Slow Progress due to Activity Tolerance Assessment Summary Pt limited with therapy due to SOB with exercise and activity. She appeared to recover more quickly with purse-lipped breathing. Further training on use of diaphragmatic breathing will probably help to reduce SOB symptoms. She plans to go home with her supportive to assist. Pt will need a FWW for her to use at home. Goals Bed Mobility Goal Independent Transfer Goal Independent Cane Front Wheeled Walker Four Wheeled Walker Gait Goal Independent Cane Front Wheel Walker Four Wheel Walker Gait Distance 200 Other Goals climb 2 steps w or without railing Days to Meet Goals 5 Frequency of Treatment Frequency Of Treatment Once a Day Treatment Plan Physical Therapy Treatment Plan Bed Mobility Training Transfer Training Gait Training Therapeutic Exercise Discharge Planning Other Recommendations and Next Treatment Pt training for deep breathing Focus and purse lipped breathing training when she is feeling SOB. Transfer and gait training as misael with least restrictive AD Stair climbing x 2 w or w/o railing. Recommendations To Nursing Amount of Assist Needed 1 Person Assist Discharge Recommendations PT Discharge Recommendations Home with Assistance Equipment Needed for Home Before FWW Discharge
[2018-09-30] MEDS: GABAPENTIN 600 MG TABLET PO (22:07)
[2018-09-30] MEDS: TRAZODONE 100 MG TABLET PO (22:07)
[2018-09-30] MEDS: PRAMIPEXOLE 0.25 MG TABLET 0.5 MG PO (22:07)
[2018-09-30] MEDS: LATANOPROST 0.005% OPHTH 2.5 ML 1 DROPS EYE-BOTH ×2 (22:08)
[2018-10-01] VITALS (7 sets, daily range): BP systolic 119–148; BP diastolic 71–83; PULSE 72–89; RESP 18–20; TEMP 36.6–37.2; O2SAT 95–97
--- NOTE | 2018-10-01 01:52 | PC.NURSE ---
Addendum entered by Agatha Almonte R.N. 10/01/18 05:45: Slept most of shift. Denies any pain. Up to bathroom this morning to void but was also incontinent. Back to bed with CPAP on. Original Note: Patient is alert and oriented. Breath sounds CTA with RA sat of 95% on CPAP. HRR with telemetry reading of SR. Denies nausea. BT present and abdomen is soft. Has been incontinent of urine but denies dysuria. Able to turn self in bed. When out of bed needs walker and 1 assist. Denies pain. Fall risk score is high and bed alarm is activated.
[2018-10-01] MEDS: LEVOTHYROXINE 150 MCG TABLET PO (05:38)
[2018-10-01 06:08] LABS: Blood Urea Nitrogen 16 mg/dL (7-17); Calcium 8.9 mg/dL (8.4-10.2); Carbon Dioxide 23 mmol/L (22-32); Chloride 103 mmol/L (98-107); Estimated Glomerular Filt Rate 52.8 mL/min (>60); Glucose 100 mg/dL (80-110); HEMOLYSIS < 15 (0-50); Potassium 3.6 mmol/L (3.4-5.1); Sodium 134 mmol/L (137-145)
--- NOTE | 2018-10-01 07:51 | P.PN_ITS ---
Subjective Date Patient Seen: 10/01/18 Time Patient Seen: 07:45 Interval history: Patient is sitting up at the bedside. Looks much like her usual self and I think is vastly improved certainly over admission and even improved over yesterday. She says she feels like she has vastly improved as well although she is still struggling to finish her Sodoku Exam Vital Signs (past 8 hours): - 10/01/18 05:40 Temperature 98.4 F Pulse Rate 80 Respiratory Rate 20 Blood Pressure 133/81 Pulse Oximetry 96 Oxygen Delivery Method Room Air,CPAP Oxygen Flow Rate 0 Objective Labs Result Diagrams: 09/30/18 05:27 10/01/18 05:37 Labs: Laboratory Results - last 24 hr 10/01/18 05:37 Sodium 134 L Potassium 3.6 Chloride 103 Carbon Dioxide 23 BUN 16 Creatinine 1.00 Estimated GFR 52.8 L BUN/Creatinine Ratio 16.0 Glucose 100 Calcium 8.9 Assessment & Plan Assessment & Plan narrative: 1. sepsis due to E coli bacteremia likely urinary tract source -patient presented with severe sepsis with organ dysfunction as evidence by her altered mental state her hypotension her acute kidney injury e tc. this seems to have nearly completely resolved. Still some altered mental status. Continue with aggressive treatment for her infection with IV antibiotics anticipate 7 days of oral antibiotics upon discharge Evidence of sepsis seems to have cleared 2. altered mental status -I would categorize this as an acute metabolic encephalopathy due to infection and patient's severe sepsis. Patient has mostly cleared although she is still struggling to perform higher task as indicated by her difficulty with the Sodoku. She is very close to baseline however 3. cough/ respiratory -patient's chest x-ray yesterday was unremarkable although perhaps showing evidence of increased volume. Patient with significant increase in weight. Patient does not have a Johnson catheter in place so urinary output has been difficult to keep track of anything like accurately. Continue with IV Lasix today given the IV fluids she required for resuscitation in the 1st 24 hr as well as her weight gain. Fortunately does not show evidence of significant hypoxia or actual significant pulmonary edema. 4. Cardiac dysrhythmia -continues on telemetry without evidence of issues. Continue with patient's metoprolol. 5. Hypertension-patient has adequate blood pressure control for now 6. Disposition -patient should be able to go home when ready for discharge. She has been up and around with physical therapy and doing okay. Overall patient requires another 24-48 hours in the hospital but should be ready for discharge in that time frame. Note: Greater than 30 minutes was spent evaluating the patient on the floor, including examining the patient, discussing clinical course with clinical and nursing staff, reviewing clinical course in the computer, preparing documentation and writing orders for continued management of care, discussing status with family as appropriate, reviewing plans for the next 24 hours with both patient/family and nursing staff as appropriate.
[2018-10-01] MEDS: BRIMONIDINE 0.2% OPHTH 5 ML 1 DROPS EYE-BOTH ×2 (08:46→20:53)
[2018-10-01] MEDS: APIXABAN 5 MG TABLET PO ×2 (08:48→20:53)
[2018-10-01] MEDS: DOCUSATE 100 MG CAPSULE PO ×2 (08:49→20:53)
[2018-10-01] MEDS: CEFTRIAXONE 1 GM/50 ML FROZ.PIGGY IV ×2 (08:49→20:53)
[2018-10-01] MEDS: FUROSEMIDE 40 MG/4 ML VIAL IV ×2 (08:49→20:54)
[2018-10-01] MEDS: DORZOLAMIDE/TIMOLOL OPHTH 10 ML 1 DROPS EYE-BOTH ×2 (08:49→20:54)
[2018-10-01] MEDS: LOSARTAN 50 MG TABLET 100 MG PO (08:50)
[2018-10-01] MEDS: SODIUM CHLORIDE 0.9% FLUSH 10 ML IV ×2 (08:50→20:55)
[2018-10-01] MEDS: METOPROLOL ER 50 MG TABLET 100 MG PO (08:50)
--- NOTE | 2018-10-01 10:40 | PT.IPTN ---
Current Diagnoses Urinary tract infection, site not specified (09/26/18) Physical Therapy Treatment Note M2 PT-IP Current Condition Start: 09/27/18 10:51 Freq: NEEDED Status: Active Protocol: Document 09/27/18 09:20 HH (Rec: 09/27/18 11:14 HH [email or web address]) Physical Therapy Current Condition Current Condition Evaluation Date 09/27/18 Treatment Diagnosis AMS, DE, e-coli +ve, generalized weakness and impaired gait. Onset Date 09/26/18 Weight Bearing Status Weight Bearing Status Weight Bear as Tolerated M3 PT-IP Subjective Start: 09/27/18 10:51 Freq: NEEDED Status: Active Protocol: Document 10/01/18 10:40 RS (Rec: 10/01/18 15:30 RS [id number]) Subjective Physical Therapy Visit Type Type Treatment Note Visit Start Time 10:15 Visit Stop Time 10:40 Total Visit Minutes 25 Physical Therapy Visit Comments Patient Comments Pt agreeable to participate in therapy. Pt also reports that MD told her she'll be here for a few more days. Therapy Pain Assessment Pain Present Pain Present Denied Pain M4 PT-IP Mobility and Gait Start: 09/27/18 10:51 Freq: NEEDED Status: Active Protocol: Document 09/29/18 16:57 LRN (Rec: 09/29/18 17:24 LRN [id number]) PT-Transfer Assessment Sit to and From Stand Sit to and from Stand Standby Assistance Equipment Transfer Assistive Device Gait Belt Front Wheeled Walker Orthotic/Prosthetic Devices or Brace: No Transfer Ability Level of Assist Standby Assistance Use of Upper Extremities Comments Mobility Comments Pt sitting at start of therapy and left sitting at end of therapy. Spouse was present at end of therapy. Gait Assessment Gait Gait Assistance Required: Contact Guard Assist Distance (Feet) 200 Able to Maintain Weight Bearing Status Yes During Gait Assistive Devices Assistive Device Gait Belt Front Wheeled Walker Orthotic/Prosthetic Devices or Brace: No Gait Deviations General Gait Pattern Antalgic Decreased Stride Length Decreased Feet Clearance Factors Limiting Gait Function Factors Limiting Gait Function Decreased Activity Tolerance Poor Balance Poor Safety Awareness Respiratory Distress Comments Gait Comments Pt required 2 standing stop rests due to SOB. Stair Climbing Assessment Comments Stair Climbing Comments Held stair climbing due to pt' s SOB and fatigue with gait. M5 PT-IP Objective Assessments Start: 09/27/18 10:51 Freq: NEEDED Status: Active Protocol: Document 09/27/18 09:20 (Rec: 09/27/18 11:14 [email or web address]) Orientation Orientation/Cognition Level of Alertness Alert Orientation Name Age Birthday Month Date Year Day of Week Place Situation Language Function Ability No Deficits Noted Hard of Hearing Safety Awareness Understands Safety Issues Memory Description No Deficits Noted Gross Range of Motion Upper Extremity ROM Assessment Within Functional Limits Lower Extremity ROM Assessment Within Functional Limits Strength Upper Extremity Strength Assessment Within Functional Limits Lower Extremity Strength Assessment Within Functional Limits Comments Strength Comments 4-/5 overall BLEs Coordination Assessment Gross Coordination Gross Coordination WNL Sensation Assessment Sensation Gross Sensation WNL Light Touch Intact Proprioception (Position) Intact Muscle Tone Muscle Tone WNL Yes M6 PT-IP Treatment Start: 09/27/18 10:51 Freq: NEEDED Status: Active Protocol: Document 10/01/18 10:40 RS (Rec: 10/01/18 15:30 RS [id number]) Physical Therapy Treatment Other Treatments Other Treatment Performed Practice diaphragmatic breathing in supine with hands on belly and chest. M7 PT-IP Assessment and Plan Start: 09/27/18 10:51 Freq: NEEDED Status: Active Protocol: Document 10/01/18 10:40 RS (Rec: 10/01/18 15:30 RS [id number]) PT Summary Assessment and Plan Potential Rehabilitation Potential Good Summary Impairments Strength Balance Activity Tolerance Progress Towards Goals Slow Progress due to Activity Tolerance Assessment Summary Pt able to perform diaphragmatic breathing correctly with use of hands for tactile cues. When hands removed pt's volumes/belly excursions were not as large. Will continue to address as a stand-alone exercise as well as incorporate these techniques while mobilizing next session. Goals Bed Mobility Goal Independent Transfer Goal Independent Cane Front Wheeled Walker Four Wheeled Walker Gait Goal Independent Cane Front Wheel Walker Four Wheel Walker Gait Distance 200 Other Goals climb 2 steps w or without railing Days to Meet Goals 3 Frequency of Treatment Frequency Of Treatment Once a Day Treatment Plan Physical Therapy Treatment Plan Bed Mobility Training Transfer Training Gait Training Therapeutic Exercise Discharge Planning Other Recommendations and Next Treatment Progress gait tolerance, Focus encourage use of diaphragmatic breathing while mobilizing Recommendations To Nursing Amount of Assist Needed 1 Person Assist Discharge Recommendations PT Discharge Recommendations Home with Assistance Equipment Needed for Home Before FWW Discharge
--- NOTE | 2018-10-01 19:55 | PC.NURSE ---
Addendum entered by Daria Cabrera 10/01/18 20:02: Reinforced call light use, call light in reach. Original Note: Evening shift student nurse note: Patient is alert and oriented X3 and able to make needs known. Patient denies any pain or discomfort. Patient states that she is feeling good today.
[2018-10-01] MEDS: PRAMIPEXOLE 0.25 MG TABLET 0.5 MG PO (20:54)
[2018-10-01] MEDS: GABAPENTIN 600 MG TABLET PO (20:54)
[2018-10-01] MEDS: LATANOPROST 0.005% OPHTH 2.5 ML 1 DROPS EYE-BOTH (21:13)
[2018-10-01] MEDS: TRAZODONE 100 MG TABLET PO (22:28)
--- NOTE | 2018-10-01 23:18 | PC.NURSE ---
Pt up to chair for most of the shift, legs elevated with pillow and foot rest, 2+ edema to bl ankles; LS coarse, O2 RA mid-90's ; pt tolerating diet, denies nausea and pain; pt to bed with CPAP; call light within reach
[2018-10-02] VITALS (11 sets, daily range): BP systolic 100–146; BP diastolic 56–90; PULSE 71–102; RESP 16–20; TEMP 36.1–37.2; O2SAT 94–99
--- NOTE | 2018-10-02 01:46 | PC.NURSE ---
2300- IV abx completed; IV off & periph site saline locked. Home CPAP in place; tele in place reading SR w/ occasional PAC's.
[2018-10-02] MEDS: LEVOTHYROXINE 150 MCG TABLET PO (06:11)
--- NOTE | 2018-10-02 08:23 | P.PN_ITS ---
Subjective Date Patient Seen: 10/02/18 Time Patient Seen: 08:21 Interval history: Patient without any real complaints. Like to be up walking longer distances etc Exam Vital Signs (past 8 hours): - 10/02/18 03:45 Temperature 98.2 F Pulse Rate 93 H Respiratory Rate 16 Blood Pressure 136/90 Pulse Oximetry 94 Oxygen Delivery Method CPAP Oxygen Flow Rate 0 Narrative Exam Narrative: Unchanged from previous Objective Labs Result Diagrams: 09/30/18 05:27 10/01/18 05:37 Assessment & Plan Assessment & Plan narrative: 1. Severe sepsis - resolved 2. E coli UTI with bacteremia and sepsis - will switch off of IV antibiotics this morning and switch to oral antibiotics based on sensitivities of the or ganism. Patient with allergies to penicillin sulfa and doxycycline which is somewhat limiting but she has tolerated the IV cephalosporin so will choose an oral cephalosporin 3. volume overload -patient's weight is significantly down this morning. She has responded nicely it appears to the IV furosemide. Unable to obtain accurate urine output but all evidence points to improvement. Will switch back to oral furosemide after this morning's dose of IV and at overall lower dose 4. Hypertension -numbers are acceptable 5. Cardiac dysrhythmia -continues with PACs but no other significant dysrhythmia on monitoring Overall patient is significantly improved and should be ready for discharge t omorrow. She should be able to go home and I do not think she will need any additional services at this point. Note: Greater than 30 minutes was spent evaluating the patient on the floor, including examining the patient, discussing clinical course with clinical and nursing staff, reviewing clinical course in the computer, preparing documentation and writing orders for continued management of care, discussing status with family as appropriate, reviewing plans for the next 24 hours with both patient/family and nursing staff as appropriate.
[2018-10-02] MEDS: DOCUSATE 100 MG CAPSULE PO ×2 (09:26→20:29)
[2018-10-02] MEDS: cefUROXime 250 MG TABLET 500 MG PO ×2 (09:26→20:29)
[2018-10-02] MEDS: METOPROLOL ER 50 MG TABLET 100 MG PO (09:27)
[2018-10-02] MEDS: ACETAMINOPHEN 325 MG TABLET 650 MG PO ×2 (09:27→15:38)
[2018-10-02] MEDS: DORZOLAMIDE/TIMOLOL OPHTH 10 ML 1 DROPS EYE-BOTH ×2 (09:28→20:27)
[2018-10-02] MEDS: LOSARTAN 50 MG TABLET 100 MG PO (09:28)
[2018-10-02] MEDS: SODIUM CHLORIDE 0.9% FLUSH 10 ML IV ×2 (09:30→20:30)
[2018-10-02] MEDS: APIXABAN 5 MG TABLET PO ×2 (09:30→20:29)
[2018-10-02] MEDS: BRIMONIDINE 0.2% OPHTH 5 ML 1 DROPS EYE-BOTH ×2 (09:36→20:36)
[2018-10-02] MEDS: FUROSEMIDE 40 MG/4 ML VIAL IV (10:00)
--- NOTE | 2018-10-02 12:33 | PT.IPTN ---
Current Diagnoses Urinary tract infection, site not specified (09/26/18) Physical Therapy Treatment Note M2 PT-IP Current Condition Start: 09/27/18 10:51 Freq: NEEDED Status: Active Protocol: Document 09/27/18 09:20 HH (Rec: 09/27/18 11:14 HH [email or web address]) Physical Therapy Current Condition Current Condition Evaluation Date 09/27/18 Treatment Diagnosis AMS, DE, e-coli +ve, generalized weakness and impaired gait. Onset Date 09/26/18 Weight Bearing Status Weight Bearing Status Weight Bear as Tolerated M3 PT-IP Subjective Start: 09/27/18 10:51 Freq: NEEDED Status: Active Protocol: Document 10/02/18 12:22 SA (Rec: 10/02/18 12:33 SA [id number]) Subjective Physical Therapy Visit Type Type Treatment Note Visit Start Time 11:57 Visit Stop Time 12:21 Total Visit Minutes 24 Number of CALIBRATION CHECKER Visits 1 Physical Therapy Visit Comments Patient Comments Pt up in chair and agreeable to PT. Therapy Pain Assessment Pain When Pain Assessed During Mobility Pain Present Pain Present Denied Pain M4 PT-IP Mobility and Gait Start: 09/27/18 10:51 Freq: NEEDED Status: Active Protocol: Document 10/02/18 12:22 SA (Rec: 10/02/18 12:33 SA [id number]) PT-Transfer Assessment Sit to and From Stand Sit to and from Stand Standby Assistance 1 Person Assistance Equipment Transfer Assistive Device Gait Belt Front Wheeled Walker Orthotic/Prosthetic Devices or Brace: No Transfers Transfer Destination Chair Toilet Transfer Technique Stand Step Pivot Transfer Ability Level of Assist Standby Assistance Use of Upper Extremities Comments Mobility Comments Pt SBA with transfers with FWW to chiar and toilet with min cues for safety. No SOB with in room mobility. Gait Assessment Gait Gait Assistance Required: Standby Assistance Contact Guard Assist Distance (Feet) 400 Able to Maintain Weight Bearing Status Yes During Gait Assistive Devices Assistive Device Gait Belt Front Wheeled Walker Orthotic/Prosthetic Devices or Brace: No Gait Deviations General Gait Pattern Antalgic Decreased Stride Length Decreased Feet Clearance Factors Limiting Gait Function Factors Limiting Gait Function Decreased Activity Tolerance Decreased Strength Comments Gait Comments Improving gait distance and quality. Pt had minor SOB at end of 400 ft walk, 02 sats 94 -96% on RA. Cues for pacing and PLB, pt enjoys walking. Stair Climbing Assessment Evaluation Level of Assist On Stairs Contact Guard Assistance Devices Stair Climbing Assistive Devices Left Railing Right Railing Technique/Endurance Stair Climbing Direction Ascend and Descend Stair Climbing Technique Step Over Step Number of Steps Climbed 3 Query Text: Stair Climbing Set # Repetitions (reps) 2 Comments Stair Climbing Comments Pt not SOB with stair climb, cues for PLB and pacing. M5 PT-IP Objective Assessments Start: 09/27/18 10:51 Freq: NEEDED Status: Active Protocol: Document 09/27/18 09:20 (Rec: 09/27/18 11:14 [email or web address]) Orientation Orientation/Cognition Level of Alertness Alert Orientation Name Age Birthday Month Date Year Day of Week Place Situation Language Function Ability No Deficits Noted Hard of Hearing Safety Awareness Understands Safety Issues Memory Description No Deficits Noted Gross Range of Motion Upper Extremity ROM Assessment Within Functional Limits Lower Extremity ROM Assessment Within Functional Limits Strength Upper Extremity Strength Assessment Within Functional Limits Lower Extremity Strength Assessment Within Functional Limits Comments Strength Comments 4-/5 overall BLEs Coordination Assessment Gross Coordination Gross Coordination WNL Sensation Assessment Sensation Gross Sensation WNL Light Touch Intact Proprioception (Position) Intact Muscle Tone Muscle Tone WNL Yes M6 PT-IP Treatment Start: 09/27/18 10:51 Freq: NEEDED Status: Active Protocol: Document 10/02/18 12:22 (Rec: 10/02/18 12:33 [id number]) Physical Therapy Treatment Exercises Exercises Ankle Pumps Education Education Provided Safety Other Treatments Other Treatment Performed Reviw of diaphragmatic breathing, education for pacing with standing activities. M7 PT-IP Assessment and Plan Start: 09/27/18 10:51 Freq: NEEDED Status: Active Protocol: Document 10/02/18 12:22 (Rec: 10/02/18 12:33 [id number]) PT Summary Assessment and Plan Summary Impairments Strength Balance Activity Tolerance Assessment Summary Pt progressing well with decerased SOB with increased activity. 02 sats 94-96% on RA . Frequency of Treatment Frequency Of Treatment Once a Day Treatment Plan Physical Therapy Treatment Plan Bed Mobility Training Transfer Training Gait Training Therapeutic Exercise Discharge Planning Other Recommendations and Next Treatment Progress gait tolerance, Focus encourage use of diaphragmatic breathing while mobilizing Recommendations To Nursing Amount of Assist Needed 1 Person Assist Discharge Recommendations PT Discharge Recommendations Home with Assistance Equipment Needed for Home Before FWW Discharge
--- NOTE | 2018-10-02 16:04 | PC.NURSE ---
Addendum entered by Macarena Hunt R.N. 10/03/18 12:14: D/c teaching done. IV and tele removed Original Note: Am shift Pt is a/o x3, reports she remains forgetful, but making progress 1PA to BR, ambulating in halls with PT. APAP for mild FISHER. Using light for needs, plan to d/c tomorrow home.
[2018-10-02] MEDS: GABAPENTIN 600 MG TABLET PO (20:29)
[2018-10-02] MEDS: PRAMIPEXOLE 0.25 MG TABLET 0.5 MG PO (20:30)
[2018-10-02] MEDS: TRAZODONE 100 MG TABLET PO (20:30)
[2018-10-02] MEDS: LATANOPROST 0.005% OPHTH 2.5 ML 1 DROPS EYE-BOTH (20:34)
[2018-10-03 04:55] VITALS: BP 136/73; PULSE 90; RESP 20; TEMP 36.8; O2SAT 93
[2018-10-03] MEDS: LEVOTHYROXINE 150 MCG TABLET PO (06:14)
[2018-10-03 07:00] VITALS: O2SAT 95
[2018-10-03 07:53] VITALS: BP 127/78; PULSE 83; RESP 16; TEMP 36.6; O2SAT 94
--- NOTE | 2018-10-03 08:27 | P.DS_ITS ---
History of Present Illness Chief complaint: Cannot keep balance Narrative: 83-year-old female transferred [facility] Emergency [facility] by spouse because of weakness. Patient says she has been ill for a week or so. Had coughing and increasing weakness. When spouse came home yesterday after running errands found her on the ground unable to get up on her own. He managed to get her up to a chair and then into bed bit decided not to bring her to the emergency department (shared decision). This morning she was actually weaker and worse and he transported her to the emergency department In the ED she was found to have ongoing rigors profound weakness and some altered mental status/confusion. She was some better when her fever broke as far as rigors and confusion seem better after some IV fluids workup in the ED revealed some prerenal azotemia as well as a leukocytosis elevated prolactin and calcitonin suggestive of infection and possible UTI She was admitted for further therapies Discharge Providers Date of admission: 09/26/18 15:03 Discharge Date: 10/03/18 Primary care physician: Vincenzo Rosas MD Consults: 09/26/18 16:28 Consult to Physical Therapy Evaluate & Treat Comment: Physician Instructions: Evaluate and Treat 09/26/18 19:43 Consult to Dietitian, Adult Routine Comment: Reason For Exam: assessed at risk Consult to [employer] Routine Comment: Discharge provider: Vincenzo Rosas MD Summary Discharge Diagnosis: 1. Severe sepsis, resolved 2. E coli bacteremia 3. UTI 4. hypertension, essential 5. Hypothyroidism on replacement 6. Obstructive sleep apnea of the adult, on BiPAP /CPAP 7. Status post nephrectomy for renal cell carcinoma 8. Personal history of breast cancer 9. Metabolic encephalopathy due to infectious issues above 10. Acute kidney injury, resolved Hospital Course: patient was admitted because of altered mental status as well as weakness. She was felt to be septic with multiple indicators of same as well as evidence of end-organ effect with elevated creatinine alter mental status etc. She subsequently grew E coli from blood cultures. Urinary tract was felt to be the source of her infection. She did become hypotensive requiring some fluid resuscitation to which she responded appropriately. Over the course of the 1st 24-48 hours patient was significantly ill but improved from then on and steady fashion. Blood pressure stabilized. Mental status returned to baseline. Patient was initially febrile but fever also disappeared. Patient was up mariia und physical therapy and switch to oral antibiotics without evidence of any negative affect. Therefore she was felt to be safe for discharge on the morning of the 03 of October Patient did show evidence of an acute kidney injury upon admission that resolved completely upon discharge. Of note patient only has 1 kidney as she is status post nephrectomy for renal cell carcinoma some years ago. Status at Discharge Cognitive/behavioral status at discharge: oriented Functional status at discharge: uses cane/walker Overall status at discharge: patient is progressing back to baseline Time Spent with Patient Greater than 30 minutes Exam Vital Signs (past 8 hours): - 10/03/18 04:55 Temperature 98.3 F Pulse Rate 90 Respiratory Rate 20 Blood Pressure 136/73 Pulse Oximetry 93 Oxygen Delivery Method CPAP Oxygen Flow Rate 0 Narrative Exam Narrative: HEENT-unremarkable, normocephalic atraumatic Neck-no lymphadenopathy no bruits Lungs-clear anteriorly and posteriorly no wheezes no crackles good breath sounds Heart-regular rate and rhythm, no murmur, rub, or gallop. normal S1-S2 Abdomen-positive bowel tones, soft, nontender, nondistended, no hepatosplenomegaly, no masses palpable Neuro-normal to screening exam, gait not tested Extremities-no cyanosis clubbing or edema Objective Labs Result Diagrams: 09/30/18 05:27 10/01/18 05:37 Discharge Plan Discharge Plan Patient Disposition: Home Discharge Med Rec/Prescriptions Prescriptions: New cefuroxime axetil 500 mg tablet 500 mg PO BID Qty: 14 RF: 0 Continued latanoprost [Xalatan] 0.005 % drops 1 gtt OP BEDTIME Qty: 0 RF: 0 Eliquis 5 mg tablet 5 mg PO BID Qty: 90 RF: 3 tramadol 50 mg tablet 50 - 100 mg PO TIDP PRN (Reason: pain) Qty: 180 RF: 1 metoprolol succinate 100 mg tablet extended release 24 hr 100 mg PO DAILY Qty: 90 RF: 3 losartan 100 mg tablet 100 mg PO DAILY Qty: 90 RF: 3 omeprazole 20 mg capsule,delayed release(DR/EC) 20 mg PO BID Qty: 90 RF: 4 gabapentin [Neurontin] 600 mg tablet 600 mg PO BEDTIME Qty: 270 RF: 3 docusate sodium 250 mg Capsule 250 mg PO DAILY PRN (Reason: Constipation) RF: 0 levothyroxine [Synthroid] 150 mcg tablet 150 mcg PO QAM RF: 0 furosemide 20 mg Tablet 20 mg PO DAILY Qty: 30 RF: 4 brimonidine 0.2 % drops 1 drp ophthalmic (eye) BID RF: 0 dorzolamide-timolol 22.3-6.8 mg/mL drops 1 drp ophthalmic (eye) BID RF: 0 acetaminophen 500 mg Tablet 500 mg PO Q4H PRN (Reason: Fever Or Pain) RF: 0 clobetasol 0.05 % solution 1 applic Topical BID RF: 0 trazodone 50 mg tablet 100 mg PO BEDTIME RF: 0 pramipexole [Mirapex] 0.5 mg tablet 1 mg PO BEDTIME RF: 0 Changed potassium chloride [Klor-Con M20] 20 mEq tablet,ER particles/crystals 20 meq PO DAILY Qty: 30 RF: 3 Discontinued nitrofurantoin macrocrystal 100 mg capsule 100 mg PO BEDTIME Qty: 90 RF: 3 Follow up/Referrals: Vincenzo Rosas MD [Primary Care Provider] - 1 Week (*appt:10/11 @ 9:[address] rosas [phone]) Provider Discharge Instructions Diet: Diet as Tolerated Discharge Data Primary Care Provider: Vincenzo Rosas Attending Provider: Vincenzo Rosas Admit Date/Time: 09/26/18 15:03
[2018-10-03] MEDS: METOPROLOL ER 50 MG TABLET 100 MG PO (08:48)
[2018-10-03] MEDS: APIXABAN 5 MG TABLET PO (08:48)
[2018-10-03] MEDS: cefUROXime 250 MG TABLET 500 MG PO (08:48)
[2018-10-03] MEDS: FUROSEMIDE 40 MG TABLET PO (08:49)
[2018-10-03] MEDS: DORZOLAMIDE/TIMOLOL OPHTH 10 ML 1 DROPS EYE-BOTH (08:49)
[2018-10-03] MEDS: DOCUSATE 100 MG CAPSULE PO (08:49)
[2018-10-03] MEDS: LOSARTAN 50 MG TABLET 100 MG PO (08:50)
--- NOTE | 2018-10-03 10:19 | PT.IPTN ---
Current Diagnoses Urinary tract infection, site not specified (09/26/18) Physical Therapy Treatment Note M2 PT-IP Current Condition Start: 09/27/18 10:51 Freq: NEEDED Status: Active Protocol: Document 09/27/18 09:20 HH (Rec: 09/27/18 11:14 HH [id number]) Physical Therapy Current Condition Current Condition Evaluation Date 09/27/18 Treatment Diagnosis AMS, DE, e-coli +ve, generalized weakness and impaired gait. Onset Date 09/26/18 Weight Bearing Status Weight Bearing Status Weight Bear as Tolerated M3 PT-IP Subjective Start: 09/27/18 10:51 Freq: NEEDED Status: Active Protocol: Document 10/03/18 09:54 CLB (Rec: 10/03/18 10:19 CLB [id number]) Subjective Physical Therapy Visit Type Type Treatment Note Visit Start Time 09:54 Visit Stop Time 10:12 Total Visit Minutes 18 Number of CITY MAIL CARRIER Visits 2 Physical Therapy Visit Comments Patient Comments Pt up in chair and agreeable to PT. Pt stated she feels more tired today. Therapy Pain Assessment Pain When Pain Assessed During Mobility Pain Present Pain Present Pain Reported Location Left Ankle Pain Management Techniques Modification of Treatment M4 PT-IP Mobility and Gait Start: 09/27/18 10:51 Freq: NEEDED Status: Active Protocol: Document 10/03/18 09:54 CLB (Rec: 10/03/18 10:19 CLB [id number]) PT-Transfer Assessment Sit to and From Stand Sit to and from Stand Standby Assistance 1 Person Assistance Equipment Transfer Assistive Device Gait Belt Front Wheeled Walker Orthotic/Prosthetic Devices or Brace: No Transfers Transfer Destination Chair Transfer Technique Stand Step Pivot Transfer Ability Level of Assist Standby Assistance Use of Upper Extremities Gait Assessment Gait Gait Assistance Required: Standby Assistance Distance (Feet) 250 Able to Maintain Weight Bearing Status Yes During Gait Assistive Devices Assistive Device Gait Belt Front Wheeled Walker Orthotic/Prosthetic Devices or Brace: No Gait Deviations General Gait Pattern Antalgic Decreased Stride Length Decreased Feet Clearance Factors Limiting Gait Function Factors Limiting Gait Function Decreased Activity Tolerance Decreased Strength Comments Gait Comments Pt is SBA with gait, O2 saturation on RA during ambulation 96-97%. Stair Climbing Assessment Evaluation Level of Assist On Stairs Standby Assistance Contact Guard Assistance Devices Stair Climbing Assistive Devices Left Railing Right Railing Technique/Endurance Stair Climbing Direction Ascend and Descend Stair Climbing Technique Step Over Step Number of Steps Climbed 3 Query Text: Stair Climbing Set # Repetitions (reps) 1 M5 PT-IP Objective Assessments Start: 09/27/18 10:51 Freq: NEEDED Status: Active Protocol: Document 09/27/18 09:20 HH (Rec: 09/27/18 11:14 HH [id number]) Orientation Orientation/Cognition Level of Alertness Alert Orientation Name Age Birthday Month Date Year Day of Week Place Situation Language Function Ability No Deficits Noted Hard of Hearing Safety Awareness Understands Safety Issues Memory Description No Deficits Noted Gross Range of Motion Upper Extremity ROM Assessment Within Functional Limits Lower Extremity ROM Assessment Within Functional Limits Strength Upper Extremity Strength Assessment Within Functional Limits Lower Extremity Strength Assessment Within Functional Limits Comments Strength Comments 4-/5 overall BLEs Coordination Assessment Gross Coordination Gross Coordination WNL Sensation Assessment Sensation Gross Sensation WNL Light Touch Intact Proprioception (Position) Intact Muscle Tone Muscle Tone WNL Yes M6 PT-IP Treatment Start: 09/27/18 10:51 Freq: NEEDED Status: Active Protocol: Document 10/02/18 12:22 SA (Rec: 10/02/18 12:33 SA [id number]) Physical Therapy Treatment Exercises Exercises Ankle Pumps Education Education Provided Safety Other Treatments Other Treatment Performed Reviw of diaphragmatic breathing, education for pacing with standing activities. M7 PT-IP Assessment and Plan Start: 09/27/18 10:51 Freq: NEEDED Status: Active Protocol: Document 10/03/18 09:54 CLB (Rec: 10/03/18 10:19 CLB [id number]) PT Summary Assessment and Plan Summary Impairments Strength Balance Activity Tolerance Assessment Summary Pt feeling more tired today but ambulated SBA ~250ft and climbed stairs with O2 on RA 96-97% during activity. Pt stated she felt a little SOB at end of tx session. Goals Bed Mobility Goal Independent Transfer Goal Independent Cane Front Wheeled Walker Four Wheeled Walker Gait Goal Independent Cane Front Wheel Walker Four Wheel Walker Gait Distance 200 Other Goals climb 2 steps w or without railing Frequency of Treatment Frequency Of Treatment Once a Day Treatment Plan Physical Therapy Treatment Plan Bed Mobility Training Transfer Training Gait Training Therapeutic Exercise Discharge Planning Recommendations To Nursing Amount of Assist Needed 1 Person Assist Discharge Recommendations PT Discharge Recommendations Home with Assistance Equipment Needed for Home Before FWW Discharge
[2018-10-03] MEDS: SODIUM CHLORIDE 0.9% FLUSH 10 ML IV (10:41)
[2018-10-03] MEDS: BRIMONIDINE 0.2% OPHTH 5 ML 1 DROPS EYE-BOTH (10:43)
--- NOTE | 2018-10-03 15:23 | CM.DPC ---
DCP: continued: case received again and EMR for last few days reviewed. Dr. Talamantes and Dr. Morel/pt's discussed the d/c specifics and pt did d/c to home with her this morning. Pt was mobilizing well with pt.
== END 2018-10-03 13:48 | disposition home or self-care (01) | DRG 871 ==
LOC: ED 13:54 → AC 15:42
PROVIDERS: Family Medicine; Admitting Provider Internal Medicine; Emergency Provider Emergency Medicine; PCP Internal Medicine; Visit Provider Internal Medicine
DX: A41.51 Sepsis due to Escherichia coli [E. coli] (principal); G93.41 Metabolic encephalopathy; N39.0 Urinary tract infection, site not specified; I48.92 Unspecified atrial flutter; N17.9 Acute kidney failure, unspecified; R65.20 Severe sepsis without septic shock; H40.9 Unspecified glaucoma; Z85.528 Personal history of other malignant neoplasm of kidney; Z90.5 Acquired absence of kidney; E03.9 Hypothyroidism, unspecified; R33.9 Retention of urine, unspecified; I10 Essential (primary) hypertension; E87.70 Fluid overload, unspecified; G47.33 Obstructive sleep apnea (adult) (pediatric)
CPT/HCPCS: 36415; 36591; 70450; 71045; 80048; 80053; 80320; 80329; 81003; 81015; 82140; 82550; 83605; 84145; 84443; 84484; 85025; 85610; 85730; 87040; 87150; 87186; 87205; 87400; 93005; 93010; 96361; 96365; 97110; 97116; 97162; 97530; 99223; 99232; 99233; 99238; 99284; G0480; J1940

== ENCOUNTER → 2018-11-07 15:53 | Outpatient (CLI) | payer MEDICARE, OTHER, SELFPAY ==
[2018-09-26 20:07] VITALS: BMI 31.6
[2018-11-07 16:23] LABS: Bacteria Urine None Seen; RBC Urine None Seen (0-5/HPF)
[2018-11-07 19:10] LABS: Appearance Urine UA CLEAR; Bilirubin Urine UA NEGATIVE (NEGATIVE); Color Urine UA YELLOW; Glucose Urine UA NEGATIVE (Negative); Ketones Urine UA NEGATIVE (NEGATIVE); Leukocyte Esterase Urine UA 1+ (NEGATIVE); Nitrite Urine UA NEGATIVE (Negative); Occult Blood Urine UA NEGATIVE (Negative); Protein Urine UA NEGATIVE (Negative); Urobilinogen Urine UA 0.2 E.U./dL (0.2); pH Urine UA 6.5 (4.5-8.0)
[2018-11-07 19:35] LABS: Squamous Epithelial Cell Urine 0-1 /HPF (0-5/HPF); WBC Urine 0-1/HPF (0-5/HPF)
== END ==
PROVIDERS: PCP Internal Medicine; Visit Provider Internal Medicine
DX: R30.0 Dysuria (principal)
CPT/HCPCS: 81001

== ENCOUNTER → 2018-11-13 13:48 | Outpatient (CLI) | payer MEDICARE, OTHER, SELFPAY ==
[2018-09-26 20:07] VITALS: BMI 31.6
--- NOTE | 2018-12-06 16:17 | PM.CARDMON.1 ---
Private Sector [employer] Report Referral & Results Date Patient Seen: 11/13/18 Requesting provider: Vincenzo Talamantes Indication: Atrial fibrillation Duration of monitoring (days): 11 Diary information: There were 4 patient diary entries associated sinus rhythm and PACs There were 4 patient triggered events associated with sinus rhythm, PACs, PVCs, and supraventricular tachycardia/atrial tachycardia Data: Minimum heart rate identified was 54 beats per minute at 04:52 on 11/15/2018 Maximum sinus heart rate was 97 beats per minute at 14:58 on 11/16/2018 Maximum overall heart rate was 150 beats per minute at 00:31 on 11/17/2018 during an 8 beat run of ventricular tachycardia For% of identified beats were supraventricular ectopic in origin Patient had rare PVCs Patient had a single run of what appears to be ventricular tachycardia at a rate of 150 beats per minute and was 8 beats in duration Impression: Patient with overall some mild bradycardia Single AP run of atypical slow VT Patient with relatively frequent supraventricular ectopic beats but no evidence of atrial fibrillation or atrial flutter
== END ==
PROVIDERS: PCP Internal Medicine; Visit Provider Internal Medicine
DX: I48.91 Unspecified atrial fibrillation (principal)
CPT/HCPCS: 0296T; 0298T

== ENCOUNTER → 2018-11-19 13:31 | Outpatient (CLI) | payer MEDICARE, OTHER, SELFPAY ==
[2018-09-26 20:07] VITALS: BMI 31.6
[2018-11-19 13:55] LABS: Appearance Urine UA CLEAR; Bilirubin Urine UA NEGATIVE (NEGATIVE); Color Urine UA YELLOW; Glucose Urine UA NEGATIVE (Negative); Ketones Urine UA NEGATIVE (NEGATIVE); Leukocyte Esterase Urine UA 3+ (NEGATIVE); Nitrite Urine UA NEGATIVE (Negative); Occult Blood Urine UA TRACE-LYSED (Negative); Protein Urine UA NEGATIVE (Negative); Specific Gravity Urine UA 1.015 (1.000-1.035); Urobilinogen Urine UA 0.2 E.U./dL (0.2); pH Urine UA 6.5 (4.5-8.0)
[2018-11-19 14:45] LABS: Bacteria Urine Many (>30); Culture Indicated Urine Specimen Cultured; RBC Urine 0-1/HPF (0-5/HPF); Squamous Epithelial Cell Urine 1-5 /HPF (0-5/HPF); WBC Urine 1-5/HPF (0-5/HPF)
== END ==
PROVIDERS: PCP Internal Medicine; Visit Provider Internal Medicine
DX: R39.89 Other symptoms and signs involving the genitourinary system (principal)
CPT/HCPCS: 81001; 87077; 87086; 87186

== ENCOUNTER → 2018-12-03 12:26 | Outpatient (CLI) | payer MEDICARE, OTHER, SELFPAY ==
[2018-09-26 20:07] VITALS: BMI 31.6
== END ==
PROVIDERS: PCP Internal Medicine; Visit Provider Internal Medicine
DX: N39.0 Urinary tract infection, site not specified (principal)
CPT/HCPCS: 87086

== ENCOUNTER → 2019-01-03 13:37 | Outpatient (CLI) | payer MEDICARE, OTHER, SELFPAY ==
[2018-09-26 20:07] VITALS: BMI 31.6
--- NOTE | 2019-01-03 | DI.US.S_ITS ---
PROCEDURE: US RENAL COMPLETE INDICATIONS: SEPSIS TECHNIQUE: Real-time scanning was performed of the kidneys and bladder, with image documentation. COMPARISON: [facility], , RENAL COMPLETE, 11/13/2016, 10:22. [facility], , RENAL COMPLETE, 08/16/2015, 13:04. FINDINGS: Kidneys: The right kidney is present, the left kidney is surgically absent. The right kidney is normal in size. Right kidney measures 10.9 cm long; Right renal cortical thickness is 1.4 cm. No hydronephrosis or nephrolithiasis. No suspicious solid mass lesions. There is a 2.8 x 3.0 x 2.6 cm superior right renal cortical cysts. Bladder: Pre-void bladder volume is 379 mL. Post-void residual is 70 mL. Pre-void images demonstrate no intraluminal masses or stones. On pre-void images, right-sided ureteral jet is noted with color Doppler interrogation. (Of note, ureteral jets may not be detectable in up to 25% of cases due to insufficient differences in specific gravity between ureteral and bladder urine). Miscellaneous: No free pelvic fluid. IMPRESSION: Prior left nephrectomy, no hydronephrosis or nephrolithiasis at the remaining right kidney. There is a renal cortical cyst appears simple and measures up to 2.8 cm at the upper third of the right kidney. Normal bladder function with 70 cc post void residual and 379 cc prevoid bladder volume. Dictated by: Akin Ro M.D. on 01/03/2019 at 17:08 Approved by: Akin Ro M.D. on 01/03/2019 at 17:10
== END ==
PROVIDERS: PCP Internal Medicine; Visit Provider Urology
DX: A41.9 Sepsis, unspecified organism (principal); N28.1 Cyst of kidney, acquired; Z90.5 Acquired absence of kidney
CPT/HCPCS: 76770

== ENCOUNTER 2019-02-14 14:30 | Outpatient (RCR) | payer MEDICARE, OTHER, SELFPAY ==
[2018-09-26 20:07] VITALS: BMI 31.6
--- NOTE | 2019-01-08 17:33 | PT.OIE ---
Current Diagnoses Other abnormalities of gait and mobility (01/08/19) Weakness (01/08/19) Other fatigue (01/08/19) Past Medical History (Last Reviewed 10/09/18 @ 22:39 by NIEVES Vergara) Essential hypertension (Chronic) Mixed hyperlipidemia (Chronic 09/02/12) Acquired hypothyroidism (Chronic 05/04/11) Obstructive sleep apnea syndrome (Chronic 05/04/11) Glaucoma (Chronic 05/04/11) Typical atrial flutter (Chronic 07/31/17) Hypertension (Chronic) Past Surgical History (Last Reviewed 10/09/18 @ 22:39 by NIEVES Vergara) History of knee replacement (Resolved) History of nephrectomy (Resolved) History of total mastectomy (Resolved 1998) Status post laminectomy (Resolved) Status post vaginal hysterectomy (Resolved) Provider Visit Care Team Role Provider Type Vincenzo Talamantes MD Attending Provider Physician Primary Care Provider Specialty: Internal Medicine Address: [address] [place] [address] Email: [email or web address] Physical Therapy Initial Evaluation PT-OP-A Visit Information Start: 01/08/19 17:03 Freq: Status: Active Protocol: Document 01/08/19 15:15 DCW (Rec: 01/08/19 17:33 DCW [id number]) Out-Patient Physical Therapy Visit Information Visit Information Visit Type Initial Evaluation Visit Start Time 15:15 Visit Stop Time 16:00 Total Visit Minutes 45 Visit Number 1 Number of ENTRY PROCESSOR Visits 0 Evaluation Information Evaluation Date 01/08/19 PT-OP-B Current Condition Start: 01/08/19 17:03 Freq: Status: Active Protocol: Document 01/08/19 15:15 DCW (Rec: 01/08/19 17:33 [facility] [id number]) Current Condition History of Current Condition Onset Date 3 months Current Complaints Fatigue, imbalance, weakness History of Current Condition Pt is an 83 year old female presenting with skilled therapy with complaints of fatigue, weakness, and declining balance. Pt has previously been treated at this clinic multiple times for various reasons. Pt reports that three months ago, she fell in her bathroom onto her back and hit her head on the carpeted floor. Pt was then hospitalized with a UTI / c e. coli and a blood infection, which resulted in a week-long hospitalization. Pt notes that since that time, she has felt off balance and has had trouble regaining my stamina. Treatment Goals Patient/Caregiver Goals I want to be able to walk through [employer] without being out of breath. Prior Functional Status Baseline Function- ADL's Independent Baseline Function- Mobility Independent Current Functional Impairments (Reported) Functional Limitations- Other Pt unable to walk around [employer] when shopping for groceries. 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, Glaucoma PT-OP-C Subjective Start: 01/08/19 17:03 Freq: Status: Active Protocol: Document 01/08/19 15:15 DCW (Rec: 01/08/19 17:33 DCW [id number]) OP-PT Subjective Patient Comments Patient Comments I think my main complaint is my strength. Also balance and endurance. And if you could fix them all today, that'd just be great. PT-OP-D Balance Start: 01/08/19 17:03 Freq: Status: Active Protocol: Document 01/08/19 15:15 DCW (Rec: 01/08/19 17:33 DC [id number]) OP-PT Balance Assessment Sitting Balance Static Sitting Balance Ability Normal Dynamic Sitting Balance Ability Normal Standing Balance Static Standing Balance Ability Good Balance Tests [place] Balance Test [place] Balance Test Score 45/56 [place] Impairment Rating 1 to 19% Impaired (Score 45-55 ) [place] Balance Assessment Evaluation Sitting to Standing Ability Independent w/out Hands Unsupported Stance Safely- 2 minutes Sitting Unsupported, Feet on Floor Safely- 2 minutes Standing to Sitting Ability Safely, Minimal Hand Use Transfer Ability Safely, Hand Use Unsupported Stance- Eyes Closed Supervision, 10 seconds Unsupported Stance- Eyes Open Independent, 1 minute Reaching Forward Standing Safely, 5 inches Pick- Up Object From Floor Independent/Safe Look Behind Shoulder - Standing Turns Sideways Only Turning 360 Degrees Turns slowly, but safely Unsupported Stance, Alternating Feet on (I)- 8 Steps in 20 secs Stair Unsupported Tandem Stance Holds Tandem- 30 seconds Unilateral Leg Stance Lifts Leg/Unable to Hold Total Score [place] Total Score (out of 56 points) 45 [place] Impairment Rating 1 to 19% Impaired (Score 45-55 ) [place] Fall Scale Copyright Permission PT-OP-E Functional Tests Start: 01/08/19 17:03 Freq: Status: Active Protocol: Document 01/08/19 15:15 DCW (Rec: 01/08/19 17:33 [facility] [id number]) Functional Tests 6 Minute Walk Test Distance 561 Device Used none Comments 1.55 ft/sec PT-OP-M Strength Start: 01/08/19 17:03 Freq: Status: Active Protocol: Document 01/08/19 15:15 DCW (Rec: 01/08/19 17:33 [facility] [id number]) Hip Strength Hip Manual Muscle Testing Right Flexion (L2) 3+ Fair+ Abduction 4- Good- Adduction 4 Good External Rotation 4+ Good+ Internal Rotation 4+ Good+ Left Flexion (L2) 3+ Fair+ Abduction 4- Good- Adduction 4 Good External Rotation 4+ Good+ Internal Rotation 4+ Good+ Knee Strength Knee Manual Muscle Testing Right Flexion (S2) 4 Good Extension (L3) 4 Good Left Flexion (S2) 4- Good- Extension (L3) 4- Good- PT-OP-T Assessment and Plan Start: 01/08/19 17:03 Freq: Status: Active Protocol: Document 01/08/19 15:15 DCW (Rec: 01/08/19 17:33 [facility] [id number]) Physical Therapy Assessment Rehab Potential Rehabilitation Potential Good Evaluation Complexity Number of Personal Factors/Comorbidities 3 or More Number of Body Systems Impaired 3 Clinical Presentation at Evaluation Stable Impairments Impairments Activity Tolerance Balance Functional Activities Functional Mobility Gait Strength Goals Three Impairment LE weakness Group Home Goal (LTG) Pt to have LE MMT grossly 4/5 bilaterally LTG Duration 03/10/19 Two Impairment Pt has an average walking speed of 1.55 ft/sec during 6 MWT Asthma Educator Goal (LTG) Pt to increase walking speed during 6 MWT to >1.97 ft/sec, which is the cutoff that has been found to find further functional decline in older adults LTG Duration 03/10/19 One Impairment Pt does not have an appropriate home exercise program Short Term Goal (STG) Pt to be independent and compliant with an appropriate HEP STG Duration 02/07/19 Assessment Summary Assessment Pt presents with generalized weakness and deconditioning, resulting in decreased activity tolerance and LE weakness. Pt walked 561' during her 6 MWT, which is an average gait speed of 1.55 ft/ sec. A speed of less than 1.97 ft/sec has been found to be associated with further functional decline in older adults. Pt should benefit from skilled therapy focusing on generalized LE strengthening, increasing activity tolerance, balance training, and gait training. Physical Therapy Plan Frequency and Duration Frequency of Treatment 2x/Week Duration of Treatment 10 weeks Plan of Care Start Date 01/08/19 Plan of Care End Date 03/19/19 Therapeutic Interventions Therapeutic Interventions Aquatic Therapy Balance Training Coordination Training Gait Training Home Exercise Program Manual Therapy Neuromuscular Re-education Patient/Caregiver Education Self-Care/Home Management Soft Tissue Mobilization Therapeutic Activities Therapeutic Exercises Next Visit Focus/Plan Next Note Type Treatment Note Next Visit Plan Balance training, LE strengthening, increased activity tolerance
--- NOTE | 2019-01-08 17:34 | PT.OPPOC ---
Current Diagnoses Other abnormalities of gait and mobility (01/08/19) Weakness (01/08/19) Other fatigue (01/08/19) Provider Visit Care Team Role Provider Type Vincenzo Talamantes MD Attending Provider Physician Primary Care Provider Specialty: Internal Medicine Address: [address] [place] [address], [facility] Email: [email or web address] Plan Of Care PT-OP-T Assessment and Plan Start: 01/08/19 17:03 Freq: Status: Active Protocol: Document 01/08/19 15:15 DCW (Rec: 01/08/19 17:33 DCW [id number]) Physical Therapy Assessment Rehab Potential Rehabilitation Potential Good Evaluation Complexity Number of Personal Factors/Comorbidities 3 or More Number of Body Systems Impaired 3 Clinical Presentation at Evaluation Stable Impairments Impairments Activity Tolerance Balance Functional Activities Functional Mobility Gait Strength Goals Three Impairment LE weakness Long-Term Goal (LTG) Pt to have LE MMT grossly 4/5 bilaterally LTG Duration 03/10/19 Two Impairment Pt has an average walking speed of 1.55 ft/sec during 6 MWT Buggyman Goal (LTG) Pt to increase walking speed during 6 MWT to >1.97 ft/sec, which is the cutoff that has been found to find further functional decline in older adults LTG Duration 03/10/19 One Impairment Pt does not have an appropriate home exercise program Short Term Goal (STG) Pt to be independent and compliant with an appropriate HEP STG Duration 02/07/19 Assessment Summary Assessment Pt presents with generalized weakness and deconditioning, resulting in decreased activity tolerance and LE weakness. Pt walked 561' during her 6 MWT, which is an average gait speed of 1.55 ft/ sec. A speed of less than 1.97 ft/sec has been found to be associated with further functional decline in older adults. Pt should benefit from skilled therapy focusing on generalized LE strengthening, increasing activity tolerance, balance training, and gait training. Physical Therapy Plan Frequency and Duration Frequency of Treatment 2x/Week Duration of Treatment 10 weeks Plan of Care Start Date 01/08/19 Plan of Care End Date 03/19/19 Therapeutic Interventions Therapeutic Interventions Aquatic Therapy Balance Training Coordination Training Gait Training Home Exercise Program Manual Therapy Neuromuscular Re-education Patient/Caregiver Education Self-Care/Home Management Soft Tissue Mobilization Therapeutic Activities Therapeutic Exercises Next Visit Focus/Plan Next Note Type Treatment Note Next Visit Plan Balance training, LE strengthening, increased activity tolerance Plan of Care Dates Plan of Care Start Date 01/08/19 Plan of Care End Date 03/19/19 Please Sign and Return: I have reviewed this Plan of Care and certify that the skilled therapy services above are required to meet the patient?s needs. Physician Signature Date Printed Name and Credentials Clinical Instructor Signature Printed Name and Credentials
--- NOTE | 2019-01-10 15:59 | PT.OTN ---
Current Diagnoses Other abnormalities of gait and mobility (01/10/19) Weakness (01/10/19) Other fatigue (01/10/19) Physical Therapy Treatment Note PT-OP-A Visit Information Start: 01/08/19 17:03 Freq: Status: Active Protocol: Document 01/10/19 15:15 DCW (Rec: 01/10/19 15:59 DCW [id number]) Out-Patient Physical Therapy Visit Information Visit Information Visit Type Treatment Note Visit Start Time 15:15 Visit Stop Time 16:00 Total Visit Minutes 45 Visit Number 2 Number of FILENET P8 DEVELOPER Visits 0 Evaluation Information Evaluation Date 01/08/19 PT-OP-B Current Condition Start: 01/08/19 17:03 Freq: Status: Active Protocol: Document 01/08/19 15:15 DCW (Rec: 01/08/19 17:33 DCW [id number]) Current Condition History of Current Condition Onset Date 3 months Current Complaints Fatigue, imbalance, weakness History of Current Condition Pt is an 83 year old female presenting with skilled therapy with complaints of fatigue, weakness, and declining balance. Pt has previously been treated at this clinic multiple times for various reasons. Pt reports that three months ago, she fell in her bathroom onto her back and hit her head on the carpeted floor. Pt was then hospitalized with a UTI / c e. coli and a blood infection, which resulted in a week-long hospitalization. Pt notes that since that time, she has felt off balance and has had trouble regaining my stamina. Treatment Goals Patient/Caregiver Goals I want to be able to walk through [employer] without being out of breath. Prior Functional Status Baseline Function- ADL's Independent Baseline Function- Mobility Independent Current Functional Impairments (Reported) Functional Limitations- Other Pt unable to walk around [employer] when shopping for groceries. 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 PT-OP-D Balance Start: 01/08/19 17:03 Freq: Status: Active Protocol: Document 01/08/19 15:15 DCW (Rec: 01/08/19 17:33 DCW [id number]) OP-PT Balance Assessment Sitting Balance Static Sitting Balance Ability Normal Dynamic Sitting Balance Ability Normal Standing Balance Static Standing Balance Ability Good Balance Tests [place] Balance Test [place] Balance Test Score 45/56 [place] Impairment Rating 1 to 19% Impaired (Score 45-55 ) [place] Balance Assessment Evaluation Sitting to Standing Ability Independent w/out Hands Unsupported Stance Safely- 2 minutes Sitting Unsupported, Feet on Floor Safely- 2 minutes Standing to Sitting Ability Safely, Minimal Hand Use Transfer Ability Safely, Hand Use Unsupported Stance- Eyes Closed Supervision, 10 seconds Unsupported Stance- Eyes Open Independent, 1 minute Reaching Forward Standing Safely, 5 inches Pick- Up Object From Floor Independent/Safe Look Behind Shoulder - Standing Turns Sideways Only Turning 360 Degrees Turns slowly, but safely Unsupported Stance, Alternating Feet on (I)- 8 Steps in 20 secs Stair Unsupported Tandem Stance Holds Tandem- 30 seconds Unilateral Leg Stance Lifts Leg/Unable to Hold Total Score [place] Total Score (out of 56 points) 45 [place] Impairment Rating 1 to 19% Impaired (Score 45-55 ) [place] Fall Scale Copyright Permission PT-OP-E Functional Tests Start: 01/08/19 17:03 Freq: Status: Active Protocol: Document 01/08/19 15:15 DCW (Rec: 01/08/19 17:33 DCW [id number]) Functional Tests 6 Minute Walk Test Distance 561 Device Used none Comments 1.55 ft/sec PT-OP-M Strength Start: 01/08/19 17:03 Freq: Status: Active Protocol: Document 01/08/19 15:15 DCW (Rec: 01/08/19 17:33 DCW [id number]) Hip Strength Hip Manual Muscle Testing Right Flexion (L2) 3+ Fair+ Abduction 4- Good- Adduction 4 Good External Rotation 4+ Good+ Internal Rotation 4+ Good+ Left Flexion (L2) 3+ Fair+ Abduction 4- Good- Adduction 4 Good External Rotation 4+ Good+ Internal Rotation 4+ Good+ Knee Strength Knee Manual Muscle Testing Right Flexion (S2) 4 Good Extension (L3) 4 Good Left Flexion (S2) 4- Good- Extension (L3) 4- Good- PT-OP-Q Treatments Start: 01/08/19 17:03 Freq: Status: Active Protocol: Document 01/10/19 15:15 DCW (Rec: 01/10/19 15:59 DCW [id number]) Cardio Equipment Recumbent Stepper (Sci-Fit) Duration (Minutes) 5 Resistance 3 Seat Position 11 Gym Equipment Shuttle Recovery Unilateral Squats Resistance 37# Shuttle Recovery Platform Stable Reps/Time 2x10 Bilateral Squats Resistance 75# Shuttle Recovery Platform Stable Reps/Time 2x10 Shuttle Balance Blue Details Wide SEBASTIAN (EO, EC, PErturbations), Staggered Stance, Turns Therapeutic Exercises Standing Exercises Hip Abduction Standing Exercise Name Abduction Side bilateral Resistance 2# Reps/Minutes 2x10 Hamstring Curls Standing Exercise Name HS Curls Side bilateral Resistance 2# Reps/Minutes 2x10 Marching Standing Exercise Name Standing Marching Side bilateral Resistance 2# Reps/Minutes 2x10 Other Exercises Resisted Ambulation Other Exercise Name Resisted side-stepping Side bilateral Resistance Yellow Equipment Used T-band Neuro Re-Education Treatment Balance Activities Tandem Walking Details Tandem Walking Surface firm PT-OP-T Assessment and Plan Start: 01/08/19 17:03 Freq: Status: Active Protocol: Document 01/10/19 15:15 DCW (Rec: 01/10/19 15:59 DCW [id number]) Physical Therapy Assessment Impairments Impairments Activity Tolerance Balance Functional Activities Functional Mobility Gait Strength Goals Three Impairment LE weakness Snf Goal (LTG) Pt to have LE MMT grossly 4/5 bilaterally LTG Duration 03/10/19 Two Impairment Pt has an average walking speed of 1.55 ft/sec during 6 MWT Snf Goal (LTG) Pt to increase walking speed during 6 MWT to >1.97 ft/sec, which is the cutoff that has been found to find further functional decline in older adults LTG Duration 03/10/19 One Impairment Pt does not have an appropriate home exercise program Short Term Goal (STG) Pt to be independent and compliant with an appropriate HEP STG Duration 02/07/19 Assessment Summary Assessment Pt complainted of fatigue and weakness during most of her activity today, but was willing to work very hard with minimal rest breaks, reported she didn't want to take it easy. Physical Therapy Plan Frequency and Duration Frequency of Treatment 2x/Week Duration of Treatment 10 weeks Plan of Care Start Date 01/08/19 Plan of Care End Date 03/19/19 Therapeutic Interventions Therapeutic Interventions Aquatic Therapy Balance Training Coordination Training Gait Training Home Exercise Program Manual Therapy Neuromuscular Re-education Patient/Caregiver Education Self-Care/Home Management Soft Tissue Mobilization Therapeutic Activities Therapeutic Exercises Next Visit Focus/Plan Next Note Type Treatment Note Next Visit Plan Balance training, LE strengthening, increased activity tolerance
--- NOTE | 2019-01-13 13:46 | PT.OTN ---
Current Diagnoses Other abnormalities of gait and mobility (01/13/19) Weakness (01/13/19) Other fatigue (01/13/19) Physical Therapy Treatment Note PT-OP-A Visit Information Start: 01/08/19 17:03 Freq: Status: Active Protocol: Document 01/13/19 12:19 EA (Rec: 01/13/19 12:24 EA [id number]) Out-Patient Physical Therapy Visit Information Visit Information Visit Type Treatment Note Visit Start Time 12:15 Visit Stop Time 13:00 Total Visit Minutes 45 Visit Number 3 PT-OP-B Current Condition Start: 01/08/19 17:03 Freq: Status: Active Protocol: Document 01/08/19 15:15 DCW (Rec: 01/08/19 17:33 DCW [id number]) Current Condition History of Current Condition Onset Date 3 months Current Complaints Fatigue, imbalance, weakness History of Current Condition Pt is an 83 year old female presenting with skilled therapy with complaints of fatigue, weakness, and declining balance. Pt has previously been treated at this clinic multiple times for various reasons. Pt reports that three months ago, she fell in her bathroom onto her back and hit her head on the carpeted floor. Pt was then hospitalized with a UTI / c e. coli and a blood infection, which resulted in a week-long hospitalization. Pt notes that since that time, she has felt off balance and has had trouble regaining my stamina. Treatment Goals Patient/Caregiver Goals I want to be able to walk through [employer] without being out of breath. Prior Functional Status Baseline Function- ADL's Independent Baseline Function- Mobility Independent Current Functional Impairments (Reported) Functional Limitations- Other Pt unable to walk around [employer] when shopping for groceries. 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, Glaucoma PT-OP-C Subjective Start: 01/08/19 17:03 Freq: Status: Active Protocol: Document 01/13/19 12:19 EA (Rec: 01/13/19 12:24 EA [id number]) OP-PT Subjective Patient Comments Patient Comments I think I'm getting better PT-OP-D Balance Start: 01/08/19 17:03 Freq: Status: Active Protocol: Document 01/08/19 15:15 DCW (Rec: 01/08/19 17:33 [facility] [id number]) OP-PT Balance Assessment Sitting Balance Static Sitting Balance Ability Normal Dynamic Sitting Balance Ability Normal Standing Balance Static Standing Balance Ability Good Balance Tests [place] Balance Test [place] Balance Test Score 45/56 [place] Impairment Rating 1 to 19% Impaired (Score 45-55 ) [place] Balance Assessment Evaluation Sitting to Standing Ability Independent w/out Hands Unsupported Stance Safely- 2 minutes Sitting Unsupported, Feet on Floor Safely- 2 minutes Standing to Sitting Ability Safely, Minimal Hand Use Transfer Ability Safely, Hand Use Unsupported Stance- Eyes Closed Supervision, 10 seconds Unsupported Stance- Eyes Open Independent, 1 minute Reaching Forward Standing Safely, 5 inches Pick- Up Object From Floor Independent/Safe Look Behind Shoulder - Standing Turns Sideways Only Turning 360 Degrees Turns slowly, but safely Unsupported Stance, Alternating Feet on (I)- 8 Steps in 20 secs Stair Unsupported Tandem Stance Holds Tandem- 30 seconds Unilateral Leg Stance Lifts Leg/Unable to Hold Total Score [place] Total Score (out of 56 points) 45 [place] Impairment Rating 1 to 19% Impaired (Score 45-55 ) [place] Fall Scale Copyright Permission PT-OP-E Functional Tests Start: 01/08/19 17:03 Freq: Status: Active Protocol: Document 01/08/19 15:15 DC (Rec: 01/08/19 17:33 [facility] [id number]) Functional Tests 6 Minute Walk Test Distance 561 Device Used none Comments 1.55 ft/sec PT-OP-M Strength Start: 01/08/19 17:03 Freq: Status: Active Protocol: Document 01/08/19 15:15 DCW (Rec: 01/08/19 17:33 [facility] [id number]) Hip Strength Hip Manual Muscle Testing Right Flexion (L2) 3+ Fair+ Abduction 4- Good- Adduction 4 Good External Rotation 4+ Good+ Internal Rotation 4+ Good+ Left Flexion (L2) 3+ Fair+ Abduction 4- Good- Adduction 4 Good External Rotation 4+ Good+ Internal Rotation 4+ Good+ Knee Strength Knee Manual Muscle Testing Right Flexion (S2) 4 Good Extension (L3) 4 Good Left Flexion (S2) 4- Good- Extension (L3) 4- Good- PT-OP-Q Treatments Start: 01/08/19 17:03 Freq: Status: Active Protocol: Document 01/13/19 12:19 EA (Rec: 01/13/19 12:24 EA [id number]) Cardio Equipment Recumbent Stepper (Sci-Fit) Duration (Minutes) 6 Resistance 4 Seat Position 11 Gym Equipment Shuttle Recovery Unilateral Squats Resistance 37# Reps/Time 2x 10 Bilateral Squats Resistance 75# Reps/Time 2 x10 Shuttle Balance Blue Details wide SEBASTIAN (EO/EC,Pertuberations ) Therapeutic Exercises Standing Exercises Hip Abduction Standing Exercise Name Abduction Side bilateral Resistance 2# Reps/Minutes 2x10 Hamstring Curls Standing Exercise Name HS Curls Side bilateral Resistance 2# Reps/Minutes 2x10 Marching Standing Exercise Name Standing Marching Side bilateral Resistance 2# Reps/Minutes 2x10 Other Exercises Resisted Ambulation Other Exercise Name Resisted side-stepping Side bilateral Resistance Yellow Equipment Used T-band PT-OP-T Assessment and Plan Start: 01/08/19 17:03 Freq: Status: Active Protocol: Document 01/13/19 13:00 EA (Rec: 01/13/19 13:01 EA [id number]) Physical Therapy Assessment Assessment Summary Assessment Tolerated treament well with few rests required. Physical Therapy Plan Next Visit Focus/Plan Next Note Type Treatment Note Next Visit Plan Balance training, LE strengthening, increased activity tolerance
--- NOTE | 2019-01-17 16:32 | PT.OTN ---
Current Diagnoses Other abnormalities of gait and mobility (01/17/19) Weakness (01/17/19) Other fatigue (01/17/19) Physical Therapy Treatment Note PT-OP-A Visit Information Start: 01/08/19 17:03 Freq: Status: Active Protocol: Document 01/17/19 09:00 AMB (Rec: 01/17/19 16:32 AMB [email or web address]) Out-Patient Physical Therapy Visit Information Visit Information Visit Type Treatment Note Visit Start Time 09:00 Visit Stop Time 09:45 Total Visit Minutes 45 Visit Number 4 PT-OP-B Current Condition Start: 01/08/19 17:03 Freq: Status: Active Protocol: Document 01/08/19 15:15 DCW (Rec: 01/08/19 17:33 DCW [id number]) Current Condition History of Current Condition Onset Date 3 months Current Complaints Fatigue, imbalance, weakness History of Current Condition Pt is an 83 year old female presenting with skilled therapy with complaints of fatigue, weakness, and declining balance. Pt has previously been treated at this clinic multiple times for various reasons. Pt reports that three months ago, she fell in her bathroom onto her back and hit her head on the carpeted floor. Pt was then hospitalized with a UTI / c e. coli and a blood infection, which resulted in a week-long hospitalization. Pt notes that since that time, she has felt off balance and has had trouble regaining my stamina. Treatment Goals Patient/Caregiver Goals I want to be able to walk through [employer] without being out of breath. Prior Functional Status Baseline Function- ADL's Independent Baseline Function- Mobility Independent Current Functional Impairments (Reported) Functional Limitations- Other Pt unable to walk around [employer] when shopping for groceries. 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 PT-OP-D Balance Start: 01/08/19 17:03 Freq: Status: Active Protocol: Document 01/08/19 15:15 DCW (Rec: 01/08/19 17:33 DCW [id number]) OP-PT Balance Assessment Sitting Balance Static Sitting Balance Ability Normal Dynamic Sitting Balance Ability Normal Standing Balance Static Standing Balance Ability Good Balance Tests [place] Balance Test [place] Balance Test Score 45/56 [place] Impairment Rating 1 to 19% Impaired (Score 45-55 ) [place] Balance Assessment Evaluation Sitting to Standing Ability Independent w/out Hands Unsupported Stance Safely- 2 minutes Sitting Unsupported, Feet on Floor Safely- 2 minutes Standing to Sitting Ability Safely, Minimal Hand Use Transfer Ability Safely, Hand Use Unsupported Stance- Eyes Closed Supervision, 10 seconds Unsupported Stance- Eyes Open Independent, 1 minute Reaching Forward Standing Safely, 5 inches Pick- Up Object From Floor Independent/Safe Look Behind Shoulder - Standing Turns Sideways Only Turning 360 Degrees Turns slowly, but safely Unsupported Stance, Alternating Feet on (I)- 8 Steps in 20 secs Stair Unsupported Tandem Stance Holds Tandem- 30 seconds Unilateral Leg Stance Lifts Leg/Unable to Hold Total Score [place] Total Score (out of 56 points) 45 [place] Impairment Rating 1 to 19% Impaired (Score 45-55 ) [place] Fall Scale Copyright Permission PT-OP-E Functional Tests Start: 01/08/19 17:03 Freq: Status: Active Protocol: Document 01/08/19 15:15 DCW (Rec: 01/08/19 17:33 [facility] [id number]) Functional Tests 6 Minute Walk Test Distance 561 Device Used none Comments 1.55 ft/sec PT-OP-M Strength Start: 01/08/19 17:03 Freq: Status: Active Protocol: Document 01/08/19 15:15 DCW (Rec: 01/08/19 17:33 DC [id number]) Hip Strength Hip Manual Muscle Testing Right Flexion (L2) 3+ Fair+ Abduction 4- Good- Adduction 4 Good External Rotation 4+ Good+ Internal Rotation 4+ Good+ Left Flexion (L2) 3+ Fair+ Abduction 4- Good- Adduction 4 Good External Rotation 4+ Good+ Internal Rotation 4+ Good+ Knee Strength Knee Manual Muscle Testing Right Flexion (S2) 4 Good Extension (L3) 4 Good Left Flexion (S2) 4- Good- Extension (L3) 4- Good- PT-OP-Q Treatments Start: 01/08/19 17:03 Freq: Status: Active Protocol: Document 01/17/19 09:00 AMB (Rec: 01/17/19 16:32 AMB [id number]) Cardio Equipment Recumbent Elliptical (Biodex) Duration (Minutes) 5 Resistance 4 Gym Equipment Shuttle Recovery Unilateral Squats Resistance 37# Reps/Time 2x 10 Bilateral Squats Resistance 75# Reps/Time 2 x10 Therapeutic Exercises Standing Exercises Hip Abduction Standing Exercise Name Abduction Side bilateral Resistance 4# Reps/Minutes 2x10 Hamstring Curls Standing Exercise Name HS Curls Side bilateral Resistance 4# Reps/Minutes 2x10 Marching Standing Exercise Name Standing Marching Side bilateral Resistance 4# Reps/Minutes 2x10 Other Exercises Resisted Ambulation Other Exercise Name Resisted side-stepping Side bilateral Resistance Red Equipment Used T-band Neuro Re-Education Treatment Balance Activities 1 Details stride stance Surface firm Comments eyes open, head turns, eyes closed PT-OP-T Assessment and Plan Start: 01/08/19 17:03 Freq: Status: Active Protocol: Document 01/17/19 09:00 AMB (Rec: 01/17/19 16:32 AMB [email or web address]) Physical Therapy Assessment Assessment Summary Assessment Pt had groin pain following stride stance balance, so offered moist heat at end to R groin. Physical Therapy Plan Next Visit Focus/Plan Next Note Type Treatment Note Next Visit Plan Balance training, LE strengthening, increased activity tolerance
--- NOTE | 2019-01-22 12:42 | PT.OTN ---
Current Diagnoses Other abnormalities of gait and mobility (01/22/19) Weakness (01/22/19) Other fatigue (01/22/19) Physical Therapy Treatment Note PT-OP-A Visit Information Start: 01/08/19 17:03 Freq: Status: Active Protocol: Document 01/22/19 12:00 DCW (Rec: 01/22/19 12:42 DCW [id number]) Out-Patient Physical Therapy Visit Information Visit Information Visit Type Treatment Note Visit Start Time 12:00 Visit Stop Time 12:45 Total Visit Minutes 45 Visit Number 5 PT-OP-B Current Condition Start: 01/08/19 17:03 Freq: Status: Active Protocol: Document 01/08/19 15:15 DCW (Rec: 01/08/19 17:33 DCW [id number]) Current Condition History of Current Condition Onset Date 3 months Current Complaints Fatigue, imbalance, weakness History of Current Condition Pt is an 83 year old female presenting with skilled therapy with complaints of fatigue, weakness, and declining balance. Pt has previously been treated at this clinic multiple times for various reasons. Pt reports that three months ago, she fell in her bathroom onto her back and hit her head on the carpeted floor. Pt was then hospitalized with a UTI / c e. coli and a blood infection, which resulted in a week-long hospitalization. Pt notes that since that time, she has felt off balance and has had trouble regaining my stamina. Treatment Goals Patient/Caregiver Goals I want to be able to walk through [employer] without being out of breath. Prior Functional Status Baseline Function- ADL's Independent Baseline Function- Mobility Independent Current Functional Impairments (Reported) Functional Limitations- Other Pt unable to walk around [employer] when shopping for groceries. 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 Pt notes that she has noticed when she is descending her stairs at home, she has been using a [id number] gait, which is a big change. PT-OP-D Balance Start: 01/08/19 17:03 Freq: Status: Active Protocol: Document 01/08/19 15:15 DCW (Rec: 01/08/19 17:33 DCW [id number]) OP-PT Balance Assessment Sitting Balance Static Sitting Balance Ability Normal Dynamic Sitting Balance Ability Normal Standing Balance Static Standing Balance Ability Good Balance Tests [place] Balance Test [place] Balance Test Score 45/56 [place] Impairment Rating 1 to 19% Impaired (Score 45-55 ) [place] Balance Assessment Evaluation Sitting to Standing Ability Independent w/out Hands Unsupported Stance Safely- 2 minutes Sitting Unsupported, Feet on Floor Safely- 2 minutes Standing to Sitting Ability Safely, Minimal Hand Use Transfer Ability Safely, Hand Use Unsupported Stance- Eyes Closed Supervision, 10 seconds Unsupported Stance- Eyes Open Independent, 1 minute Reaching Forward Standing Safely, 5 inches Pick- Up Object From Floor Independent/Safe Look Behind Shoulder - Standing Turns Sideways Only Turning 360 Degrees Turns slowly, but safely Unsupported Stance, Alternating Feet on (I)- 8 Steps in 20 secs Stair Unsupported Tandem Stance Holds Tandem- 30 seconds Unilateral Leg Stance Lifts Leg/Unable to Hold Total Score [place] Total Score (out of 56 points) 45 [place] Impairment Rating 1 to 19% Impaired (Score 45-55 ) [place] Fall Scale Copyright Permission PT-OP-E Functional Tests Start: 01/08/19 17:03 Freq: Status: Active Protocol: Document 01/08/19 15:15 DCW (Rec: 01/08/19 17:33 DCW [id number]) Functional Tests 6 Minute Walk Test Distance 561 Device Used none Comments 1.55 ft/sec PT-OP-M Strength Start: 01/08/19 17:03 Freq: Status: Active Protocol: Document 01/08/19 15:15 DCW (Rec: 01/08/19 17:33 DCW [id number]) Hip Strength Hip Manual Muscle Testing Right Flexion (L2) 3+ Fair+ Abduction 4- Good- Adduction 4 Good External Rotation 4+ Good+ Internal Rotation 4+ Good+ Left Flexion (L2) 3+ Fair+ Abduction 4- Good- Adduction 4 Good External Rotation 4+ Good+ Internal Rotation 4+ Good+ Knee Strength Knee Manual Muscle Testing Right Flexion (S2) 4 Good Extension (L3) 4 Good Left Flexion (S2) 4- Good- Extension (L3) 4- Good- PT-OP-Q Treatments Start: 01/08/19 17:03 Freq: Status: Active Protocol: Document 01/22/19 12:00 DCW (Rec: 01/22/19 12:42 DCW [id number]) Cardio Equipment Recumbent Elliptical (Biodex) Duration (Minutes) 5 Resistance 4 Seat Position 9 Gym Equipment Shuttle Recovery Unilateral Squats Resistance 37# Reps/Time 2x 10 Bilateral Squats Resistance 75# Reps/Time 2 x10 Shuttle Balance Blue Details wide SEBASTIAN (EO/EC, Head Turns), Staggered Stance Therapeutic Exercises Standing Exercises Step-ups Standing Exercise Name Step-ups Side bilateral Equipment Used 6 step Reps/Minutes x15 Hip Abduction Standing Exercise Name Abduction Side bilateral Resistance 4# Reps/Minutes 2x10 Hamstring Curls Standing Exercise Name HS Curls Side bilateral Resistance 4# Reps/Minutes x10 each Marching Standing Exercise Name Standing Marching Side bilateral Resistance 4# Reps/Minutes x20 Other Exercises Resisted Ambulation Other Exercise Name Resisted side-stepping Side bilateral Resistance Red Equipment Used T-band Comments Band around shoes Neuro Re-Education Treatment Balance Activities Tandem Walking Details Tandem Walking Surface firm PT-OP-T Assessment and Plan Start: 01/08/19 17:03 Freq: Status: Active Protocol: Document 01/22/19 12:00 DCW (Rec: 01/22/19 12:42 DCW [id number]) Physical Therapy Assessment Impairments Impairments Activity Tolerance Balance Functional Activities Functional Mobility Gait Strength Goals Three Impairment LE weakness Glass Curvature Gauger Goal (LTG) Pt to have LE MMT grossly 4/5 bilaterally LTG Duration 03/10/19 Two Impairment Pt has an average walking speed of 1.55 ft/sec during 6 MWT Glass Curvature Gauger Goal (LTG) Pt to increase walking speed during 6 MWT to >1.97 ft/sec, which is the cutoff that has been found to find further functional decline in older adults LTG Duration 03/10/19 One Impairment Pt does not have an appropriate home exercise program Short Term Goal (STG) Pt to be independent and compliant with an appropriate HEP STG Duration 02/07/19 Assessment Summary Assessment Pt appears to be making very good progress, able to perform activities with better quality and fewer rest breaks Physical Therapy Plan Frequency and Duration Frequency of Treatment 2x/Week Duration of Treatment 10 weeks Plan of Care Start Date 01/08/19 Plan of Care End Date 03/19/19 Therapeutic Interventions Therapeutic Interventions Aquatic Therapy Balance Training Coordination Training Gait Training Home Exercise Program Manual Therapy Neuromuscular Re-education Patient/Caregiver Education Self-Care/Home Management Soft Tissue Mobilization Therapeutic Activities Therapeutic Exercises Next Visit Focus/Plan Next Note Type Treatment Note Next Visit Plan Balance training, LE strengthening, increased activity tolerance
--- NOTE | 2019-01-31 16:15 | PT.OTN ---
Current Diagnoses Other abnormalities of gait and mobility (01/31/19) Weakness (01/31/19) Other fatigue (01/31/19) Physical Therapy Treatment Note PT-OP-A Visit Information Start: 01/08/19 17:03 Freq: Status: Active Protocol: Document 01/31/19 16:04 SA (Rec: 01/31/19 16:15 SA [id number]) Out-Patient Physical Therapy Visit Information Visit Information Visit Type Treatment Note Visit Start Time 14:30 Visit Stop Time 15:15 Total Visit Minutes 45 Visit Number 6 Number of EXTRUSION PRESS ADJUSTER Visits 1 PT-OP-B Current Condition Start: 01/08/19 17:03 Freq: Status: Active Protocol: Document 01/08/19 15:15 DCW (Rec: 01/08/19 17:33 DCW [id number]) Current Condition History of Current Condition Onset Date 3 months Current Complaints Fatigue, imbalance, weakness History of Current Condition Pt is an 83 year old female presenting with skilled therapy with complaints of fatigue, weakness, and declining balance. Pt has previously been treated at this clinic multiple times for various reasons. Pt reports that three months ago, she fell in her bathroom onto her back and hit her head on the carpeted floor. Pt was then hospitalized with a UTI / c e. coli and a blood infection, which resulted in a week-long hospitalization. Pt notes that since that time, she has felt off balance and has had trouble regaining my stamina. Treatment Goals Patient/Caregiver Goals I want to be able to walk through [employer] without being out of breath. Prior Functional Status Baseline Function- ADL's Independent Baseline Function- Mobility Independent Current Functional Impairments (Reported) Functional Limitations- Other Pt unable to walk around [employer] when shopping for groceries. 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 PT-OP-D Balance Start: 01/08/19 17:03 Freq: Status: Active Protocol: Document 01/08/19 15:15 DCW (Rec: 01/08/19 17:33 DCW [id number]) OP-PT Balance Assessment Sitting Balance Static Sitting Balance Ability Normal Dynamic Sitting Balance Ability Normal Standing Balance Static Standing Balance Ability Good Balance Tests [place] Balance Test [place] Balance Test Score 45/56 [place] Impairment Rating 1 to 19% Impaired (Score 45-55 ) [place] Balance Assessment Evaluation Sitting to Standing Ability Independent w/out Hands Unsupported Stance Safely- 2 minutes Sitting Unsupported, Feet on Floor Safely- 2 minutes Standing to Sitting Ability Safely, Minimal Hand Use Transfer Ability Safely, Hand Use Unsupported Stance- Eyes Closed Supervision, 10 seconds Unsupported Stance- Eyes Open Independent, 1 minute Reaching Forward Standing Safely, 5 inches Pick- Up Object From Floor Independent/Safe Look Behind Shoulder - Standing Turns Sideways Only Turning 360 Degrees Turns slowly, but safely Unsupported Stance, Alternating Feet on (I)- 8 Steps in 20 secs Stair Unsupported Tandem Stance Holds Tandem- 30 seconds Unilateral Leg Stance Lifts Leg/Unable to Hold Total Score [place] Total Score (out of 56 points) 45 [place] Impairment Rating 1 to 19% Impaired (Score 45-55 ) [place] Fall Scale Copyright Permission PT-OP-E Functional Tests Start: 01/08/19 17:03 Freq: Status: Active Protocol: Document 01/08/19 15:15 DCW (Rec: 01/08/19 17:33 DCW [id number]) Functional Tests 6 Minute Walk Test Distance 561 Device Used none Comments 1.55 ft/sec PT-OP-M Strength Start: 01/08/19 17:03 Freq: Status: Active Protocol: Document 01/08/19 15:15 DCW (Rec: 01/08/19 17:33 DCW [id number]) Hip Strength Hip Manual Muscle Testing Right Flexion (L2) 3+ Fair+ Abduction 4- Good- Adduction 4 Good External Rotation 4+ Good+ Internal Rotation 4+ Good+ Left Flexion (L2) 3+ Fair+ Abduction 4- Good- Adduction 4 Good External Rotation 4+ Good+ Internal Rotation 4+ Good+ Knee Strength Knee Manual Muscle Testing Right Flexion (S2) 4 Good Extension (L3) 4 Good Left Flexion (S2) 4- Good- Extension (L3) 4- Good- PT-OP-Q Treatments Start: 01/08/19 17:03 Freq: Status: Active Protocol: Document 01/31/19 16:04 SA (Rec: 01/31/19 16:15 [email or web address]) Cardio Equipment Recumbent Elliptical (Biodex) Duration (Minutes) 6 Resistance 4 Seat Position 9 Therapeutic Exercises Supine Exercises TrA activation Side bilateral Reps/Minutes 5 x 10 Comments progressed to marching Standing Exercises Hip Abduction Standing Exercise Name Abduction Side bilateral Equipment Used supine Reps/Minutes 2x10 Hamstring Curls Standing Exercise Name HS Curls Side bilateral Resistance 2# Reps/Minutes x10 each Manual Therapy Treatment Soft Tissue Mobilization Lumbar paraspinals Body Location B SI region Mobilization Type Cross-Friction Myofascial Release Rolling Strumming Intensity/Depth Moderate Body Position Sidelying Comments Passive HS stretching and SKTC PT-OP-T Assessment and Plan Start: 01/08/19 17:03 Freq: Status: Active Protocol: Document 01/31/19 16:04 (Rec: 01/31/19 16:15 [id number]) Physical Therapy Assessment Assessment Summary Assessment Pt disapointed with set back, tolerated gentle ther ex well today but was unable to do standing strengthening. STM and heat helped relive pain. Physical Therapy Plan Next Visit Focus/Plan Next Note Type Treatment Note Next Visit Plan Assess sx and progress LE strengthening and activity increases as tolerated.
--- NOTE | 2019-02-05 15:10 | PT.OTN ---
Current Diagnoses Other abnormalities of gait and mobility (02/05/19) Weakness (02/05/19) Other fatigue (02/05/19) Physical Therapy Treatment Note PT-OP-A Visit Information Start: 01/08/19 17:03 Freq: Status: Active Protocol: Document 02/05/19 14:30 DCW (Rec: 02/05/19 15:09 DCW [id number]) Out-Patient Physical Therapy Visit Information Visit Information Visit Type Treatment Note Visit Start Time 14:30 Visit Stop Time 15:15 Total Visit Minutes 45 Visit Number 7 Number of PATENTS EXAMINER Visits 0 Evaluation Information Evaluation Date 01/08/19 PT-OP-B Current Condition Start: 01/08/19 17:03 Freq: Status: Active Protocol: Document 01/08/19 15:15 DCW (Rec: 01/08/19 17:33 DCW [id number]) Current Condition History of Current Condition Onset Date 3 months Current Complaints Fatigue, imbalance, weakness History of Current Condition Pt is an 83 year old female presenting with skilled therapy with complaints of fatigue, weakness, and declining balance. Pt has previously been treated at this clinic multiple times for various reasons. Pt reports that three months ago, she fell in her bathroom onto her back and hit her head on the carpeted floor. Pt was then hospitalized with a UTI / c e. coli and a blood infection, which resulted in a week-long hospitalization. Pt notes that since that time, she has felt off balance and has had trouble regaining my stamina. Treatment Goals Patient/Caregiver Goals I want to be able to walk through [employer] without being out of breath. Prior Functional Status Baseline Function- ADL's Independent Baseline Function- Mobility Independent Current Functional Impairments (Reported) Functional Limitations- Other Pt unable to walk around [employer] when shopping for groceries. 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 PT-OP-D Balance Start: 01/08/19 17:03 Freq: Status: Active Protocol: Document 01/08/19 15:15 DCW (Rec: 01/08/19 17:33 DCW [id number]) OP-PT Balance Assessment Sitting Balance Static Sitting Balance Ability Normal Dynamic Sitting Balance Ability Normal Standing Balance Static Standing Balance Ability Good Balance Tests [place] Balance Test [place] Balance Test Score 45/56 [place] Impairment Rating 1 to 19% Impaired (Score 45-55 ) [place] Balance Assessment Evaluation Sitting to Standing Ability Independent w/out Hands Unsupported Stance Safely- 2 minutes Sitting Unsupported, Feet on Floor Safely- 2 minutes Standing to Sitting Ability Safely, Minimal Hand Use Transfer Ability Safely, Hand Use Unsupported Stance- Eyes Closed Supervision, 10 seconds Unsupported Stance- Eyes Open Independent, 1 minute Reaching Forward Standing Safely, 5 inches Pick- Up Object From Floor Independent/Safe Look Behind Shoulder - Standing Turns Sideways Only Turning 360 Degrees Turns slowly, but safely Unsupported Stance, Alternating Feet on (I)- 8 Steps in 20 secs Stair Unsupported Tandem Stance Holds Tandem- 30 seconds Unilateral Leg Stance Lifts Leg/Unable to Hold Total Score [place] Total Score (out of 56 points) 45 [place] Impairment Rating 1 to 19% Impaired (Score 45-55 ) [place] Fall Scale Copyright Permission PT-OP-E Functional Tests Start: 01/08/19 17:03 Freq: Status: Active Protocol: Document 01/08/19 15:15 DCW (Rec: 01/08/19 17:33 DCW [id number]) Functional Tests 6 Minute Walk Test Distance 561 Device Used none Comments 1.55 ft/sec PT-OP-M Strength Start: 01/08/19 17:03 Freq: Status: Active Protocol: Document 01/08/19 15:15 DCW (Rec: 01/08/19 17:33 DCW [id number]) Hip Strength Hip Manual Muscle Testing Right Flexion (L2) 3+ Fair+ Abduction 4- Good- Adduction 4 Good External Rotation 4+ Good+ Internal Rotation 4+ Good+ Left Flexion (L2) 3+ Fair+ Abduction 4- Good- Adduction 4 Good External Rotation 4+ Good+ Internal Rotation 4+ Good+ Knee Strength Knee Manual Muscle Testing Right Flexion (S2) 4 Good Extension (L3) 4 Good Left Flexion (S2) 4- Good- Extension (L3) 4- Good- PT-OP-Q Treatments Start: 01/08/19 17:03 Freq: Status: Active Protocol: Document 02/05/19 14:30 DCW (Rec: 02/05/19 15:09 DCW [id number]) Cardio Equipment Recumbent Elliptical (Biodex) Duration (Minutes) 5 Resistance 4 Seat Position 8 Gym Equipment Shuttle Recovery Unilateral Squats Resistance 37# Reps/Time 2x10 Bilateral Squats Resistance 75# Reps/Time 2x10 Therapeutic Exercises Supine Exercises Bridging Supine Exercise Name Bridging TrA activation Side bilateral Reps/Minutes 5 x 10 Comments progressed to marching Sidelying Exercises Reverse Clamshell Sidelying Exercise Name Reverse Clamshell Clamshell Sidelying Exercise Name Clamshell Side bilateral Standing Exercises Hip Abduction Standing Exercise Name Abduction Side bilateral Resistance 4# Reps/Minutes 2x10 Hamstring Curls Standing Exercise Name HS Curls Side bilateral Resistance 4# Reps/Minutes x10 each Marching Standing Exercise Name Standing Marching Side bilateral Resistance 4# Reps/Minutes x20 Other Exercises Hurdles Other Exercise Name Fwd/Sode-stepping Hurdles Resisted Ambulation Other Exercise Name Resisted side-stepping Side bilateral Resistance Red Equipment Used T-band Comments Band around shoes PT-OP-T Assessment and Plan Start: 01/08/19 17:03 Freq: Status: Active Protocol: Document 02/05/19 14:30 DCW (Rec: 02/05/19 15:09 DCW [id number]) Physical Therapy Assessment Impairments Impairments Activity Tolerance Balance Functional Activities Functional Mobility Gait Strength Goals Three Impairment LE weakness Viscose Cellar Worker Goal (LTG) Pt to have LE MMT grossly 4/5 bilaterally LTG Duration 03/10/19 Two Impairment Pt has an average walking speed of 1.55 ft/sec during 6 MWT Halfway Goal (LTG) Pt to increase walking speed during 6 MWT to >1.97 ft/sec, which is the cutoff that has been found to find further functional decline in older adults LTG Duration 03/10/19 One Impairment Pt does not have an appropriate home exercise program Short Term Goal (STG) Pt to be independent and compliant with an appropriate HEP STG Duration 02/07/19 Assessment Summary Assessment Pt able to tolerate return to normal activities today after a gentle session last week secondary to increased back pain. Physical Therapy Plan Frequency and Duration Frequency of Treatment 2x/Week Duration of Treatment 10 weeks Plan of Care Start Date 01/08/19 Plan of Care End Date 03/19/19 Therapeutic Interventions Therapeutic Interventions Aquatic Therapy Balance Training Coordination Training Gait Training Home Exercise Program Manual Therapy Neuromuscular Re-education Patient/Caregiver Education Self-Care/Home Management Soft Tissue Mobilization Therapeutic Activities Therapeutic Exercises Next Visit Focus/Plan Next Note Type Treatment Note Next Visit Plan Balance training, LE strengthening, increased activity tolerance
--- NOTE | 2019-02-07 12:41 | PT.OTN ---
Current Diagnoses Other abnormalities of gait and mobility (02/07/19) Weakness (02/07/19) Other fatigue (02/07/19) Physical Therapy Treatment Note PT-OP-A Visit Information Start: 01/08/19 17:03 Freq: Status: Active Protocol: Document 02/07/19 12:00 DCW (Rec: 02/07/19 12:41 DCW [id number]) Out-Patient Physical Therapy Visit Information Visit Information Visit Type Treatment Note Visit Start Time 12:00 Visit Stop Time 12:45 Total Visit Minutes 45 Visit Number 8 Number of PROFESSOR OF COMMUNICATION Visits 0 Evaluation Information Evaluation Date 01/08/19 PT-OP-B Current Condition Start: 01/08/19 17:03 Freq: Status: Active Protocol: Document 01/08/19 15:15 DCW (Rec: 01/08/19 17:33 DCW [id number]) Current Condition History of Current Condition Onset Date 3 months Current Complaints Fatigue, imbalance, weakness History of Current Condition Pt is an 83 year old female presenting with skilled therapy with complaints of fatigue, weakness, and declining balance. Pt has previously been treated at this clinic multiple times for various reasons. Pt reports that three months ago, she fell in her bathroom onto her back and hit her head on the carpeted floor. Pt was then hospitalized with a UTI / c e. coli and a blood infection, which resulted in a week-long hospitalization. Pt notes that since that time, she has felt off balance and has had trouble regaining my stamina. Treatment Goals Patient/Caregiver Goals I want to be able to walk through [employer] without being out of breath. Prior Functional Status Baseline Function- ADL's Independent Baseline Function- Mobility Independent Current Functional Impairments (Reported) Functional Limitations- Other Pt unable to walk around [employer] when shopping for groceries. 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 PT-OP-D Balance Start: 01/08/19 17:03 Freq: Status: Active Protocol: Document 01/08/19 15:15 DCW (Rec: 01/08/19 17:33 DCW [id number]) OP-PT Balance Assessment Sitting Balance Static Sitting Balance Ability Normal Dynamic Sitting Balance Ability Normal Standing Balance Static Standing Balance Ability Good Balance Tests [place] Balance Test [place] Balance Test Score 45/56 [place] Impairment Rating 1 to 19% Impaired (Score 45-55 ) [place] Balance Assessment Evaluation Sitting to Standing Ability Independent w/out Hands Unsupported Stance Safely- 2 minutes Sitting Unsupported, Feet on Floor Safely- 2 minutes Standing to Sitting Ability Safely, Minimal Hand Use Transfer Ability Safely, Hand Use Unsupported Stance- Eyes Closed Supervision, 10 seconds Unsupported Stance- Eyes Open Independent, 1 minute Reaching Forward Standing Safely, 5 inches Pick- Up Object From Floor Independent/Safe Look Behind Shoulder - Standing Turns Sideways Only Turning 360 Degrees Turns slowly, but safely Unsupported Stance, Alternating Feet on (I)- 8 Steps in 20 secs Stair Unsupported Tandem Stance Holds Tandem- 30 seconds Unilateral Leg Stance Lifts Leg/Unable to Hold Total Score [place] Total Score (out of 56 points) 45 [place] Impairment Rating 1 to 19% Impaired (Score 45-55 ) [place] Fall Scale Copyright Permission PT-OP-E Functional Tests Start: 01/08/19 17:03 Freq: Status: Active Protocol: Document 01/08/19 15:15 DCW (Rec: 01/08/19 17:33 DCW [id number]) Functional Tests 6 Minute Walk Test Distance 561 Device Used none Comments 1.55 ft/sec PT-OP-M Strength Start: 01/08/19 17:03 Freq: Status: Active Protocol: Document 01/08/19 15:15 DCW (Rec: 01/08/19 17:33 DCW [id number]) Hip Strength Hip Manual Muscle Testing Right Flexion (L2) 3+ Fair+ Abduction 4- Good- Adduction 4 Good External Rotation 4+ Good+ Internal Rotation 4+ Good+ Left Flexion (L2) 3+ Fair+ Abduction 4- Good- Adduction 4 Good External Rotation 4+ Good+ Internal Rotation 4+ Good+ Knee Strength Knee Manual Muscle Testing Right Flexion (S2) 4 Good Extension (L3) 4 Good Left Flexion (S2) 4- Good- Extension (L3) 4- Good- PT-OP-Q Treatments Start: 01/08/19 17:03 Freq: Status: Active Protocol: Document 02/07/19 12:00 DCW (Rec: 02/07/19 12:41 DCW [id number]) Cardio Equipment Recumbent Elliptical (Biodex) Duration (Minutes) 6 Resistance 4 Seat Position 8 Gym Equipment Shuttle Recovery Unilateral Squats Resistance 37# Reps/Time 2x15 Bilateral Squats Resistance 75# Reps/Time 2x15 Shuttle Balance Blue Details wide SEBASTIAN (EO/EC, Head Turns), Staggered Stance Therapeutic Exercises Standing Exercises Step-ups Standing Exercise Name Toe-taps Side bilateral Resistance 4# Equipment Used 6 step Reps/Minutes x15 Hip Abduction Standing Exercise Name Abduction Side bilateral Resistance 4# Reps/Minutes 2x10 Hamstring Curls Standing Exercise Name HS Curls Side bilateral Resistance 4# Reps/Minutes x10 each Marching Standing Exercise Name Standing Marching Side bilateral Resistance 4# Reps/Minutes x20 Other Exercises Hurdles Other Exercise Name Fwd/Side-stepping Hurdles Resisted Ambulation Other Exercise Name Resisted side-stepping Side bilateral Resistance Red Equipment Used T-band Comments Band around shoes PT-OP-T Assessment and Plan Start: 01/08/19 17:03 Freq: Status: Active Protocol: Document 02/07/19 12:00 DCW (Rec: 02/07/19 12:41 DCW [id number]) Physical Therapy Assessment Impairments Impairments Activity Tolerance Balance Functional Activities Functional Mobility Gait Strength Goals Three Impairment LE weakness Boat Officer Goal (LTG) Pt to have LE MMT grossly 4/5 bilaterally LTG Duration 03/10/19 Two Impairment Pt has an average walking speed of 1.55 ft/sec during 6 MWT Boat Officer Goal (LTG) Pt to increase walking speed during 6 MWT to >1.97 ft/sec, which is the cutoff that has been found to find further functional decline in older adults LTG Duration 03/10/19 One Impairment Pt does not have an appropriate home exercise program Short Term Goal (STG) Pt to be independent and compliant with an appropriate HEP STG Duration 02/07/19 Assessment Summary Assessment Pt continues to progress with her balance and activity tolerance Physical Therapy Plan Frequency and Duration Frequency of Treatment 2x/Week Duration of Treatment 10 weeks Plan of Care Start Date 01/08/19 Plan of Care End Date 03/19/19 Therapeutic Interventions Therapeutic Interventions Aquatic Therapy Balance Training Coordination Training Gait Training Home Exercise Program Manual Therapy Neuromuscular Re-education Patient/Caregiver Education Self-Care/Home Management Soft Tissue Mobilization Therapeutic Activities Therapeutic Exercises Next Visit Focus/Plan Next Note Type Treatment Note Next Visit Plan Balance training, LE strengthening, increased activity tolerance
--- NOTE | 2019-02-10 15:57 | PT.OTN ---
Current Diagnoses Other abnormalities of gait and mobility (02/10/19) Weakness (02/10/19) Other fatigue (02/10/19) Physical Therapy Treatment Note PT-OP-A Visit Information Start: 01/08/19 17:03 Freq: Status: Active Protocol: Document 02/10/19 15:20 DCW (Rec: 02/10/19 15:57 DCW [id number]) Out-Patient Physical Therapy Visit Information Visit Information Visit Type Treatment Note Visit Note Pt arrived 5 minutes late Visit Start Time 15:20 Visit Stop Time 16:00 Total Visit Minutes 40 Visit Number 9 Number of MARKETING LEAD Visits 0 Evaluation Information Evaluation Date 01/08/19 PT-OP-B Current Condition Start: 01/08/19 17:03 Freq: Status: Active Protocol: Document 01/08/19 15:15 DCW (Rec: 01/08/19 17:33 DCW [id number]) Current Condition History of Current Condition Onset Date 3 months Current Complaints Fatigue, imbalance, weakness History of Current Condition Pt is an 83 year old female presenting with skilled therapy with complaints of fatigue, weakness, and declining balance. Pt has previously been treated at this clinic multiple times for various reasons. Pt reports that three months ago, she fell in her bathroom onto her back and hit her head on the carpeted floor. Pt was then hospitalized with a UTI / c e. coli and a blood infection, which resulted in a week-long hospitalization. Pt notes that since that time, she has felt off balance and has had trouble regaining my stamina. Treatment Goals Patient/Caregiver Goals I want to be able to walk through [employer] without being out of breath. Prior Functional Status Baseline Function- ADL's Independent Baseline Function- Mobility Independent Current Functional Impairments (Reported) Functional Limitations- Other Pt unable to walk around [employer] when shopping for groceries. 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 I'm walking faster and better. Patient Reported Progress Improving PT-OP-D Balance Start: 01/08/19 17:03 Freq: Status: Active Protocol: Document 01/08/19 15:15 DCW (Rec: 01/08/19 17:33 DCW [id number]) OP-PT Balance Assessment Sitting Balance Static Sitting Balance Ability Normal Dynamic Sitting Balance Ability Normal Standing Balance Static Standing Balance Ability Good Balance Tests [place] Balance Test [place] Balance Test Score 45/56 [place] Impairment Rating 1 to 19% Impaired (Score 45-55 ) [place] Balance Assessment Evaluation Sitting to Standing Ability Independent w/out Hands Unsupported Stance Safely- 2 minutes Sitting Unsupported, Feet on Floor Safely- 2 minutes Standing to Sitting Ability Safely, Minimal Hand Use Transfer Ability Safely, Hand Use Unsupported Stance- Eyes Closed Supervision, 10 seconds Unsupported Stance- Eyes Open Independent, 1 minute Reaching Forward Standing Safely, 5 inches Pick- Up Object From Floor Independent/Safe Look Behind Shoulder - Standing Turns Sideways Only Turning 360 Degrees Turns slowly, but safely Unsupported Stance, Alternating Feet on (I)- 8 Steps in 20 secs Stair Unsupported Tandem Stance Holds Tandem- 30 seconds Unilateral Leg Stance Lifts Leg/Unable to Hold Total Score [place] Total Score (out of 56 points) 45 [place] Impairment Rating 1 to 19% Impaired (Score 45-55 ) [place] Fall Scale Copyright Permission PT-OP-E Functional Tests Start: 01/08/19 17:03 Freq: Status: Active Protocol: Document 01/08/19 15:15 DCW (Rec: 01/08/19 17:33 DCW [id number]) Functional Tests 6 Minute Walk Test Distance 561 Device Used none Comments 1.55 ft/sec PT-OP-M Strength Start: 01/08/19 17:03 Freq: Status: Active Protocol: Document 01/08/19 15:15 DCW (Rec: 01/08/19 17:33 DCW [id number]) Hip Strength Hip Manual Muscle Testing Right Flexion (L2) 3+ Fair+ Abduction 4- Good- Adduction 4 Good External Rotation 4+ Good+ Internal Rotation 4+ Good+ Left Flexion (L2) 3+ Fair+ Abduction 4- Good- Adduction 4 Good External Rotation 4+ Good+ Internal Rotation 4+ Good+ Knee Strength Knee Manual Muscle Testing Right Flexion (S2) 4 Good Extension (L3) 4 Good Left Flexion (S2) 4- Good- Extension (L3) 4- Good- PT-OP-Q Treatments Start: 01/08/19 17:03 Freq: Status: Active Protocol: Document 02/10/19 15:20 DCW (Rec: 02/10/19 15:57 DCW [id number]) Cardio Equipment Recumbent Elliptical (Biodex) Duration (Minutes) 6 Resistance 4 Seat Position 9 Gym Equipment Shuttle Recovery Unilateral Squats Resistance 37# Reps/Time 2x15 Bilateral Squats Resistance 75# Reps/Time 2x15 Shuttle Balance Blue Details wide SEBASTIAN (EO/EC, Head Turns), Staggered Stance Therapeutic Exercises Standing Exercises Step-ups Standing Exercise Name Toe-taps Side bilateral Resistance 4# Equipment Used 6 step Reps/Minutes x15 Hip Abduction Standing Exercise Name Abduction Side bilateral Resistance 4# Reps/Minutes 2x10 Hamstring Curls Standing Exercise Name HS Curls Side bilateral Resistance 4# Reps/Minutes x10 each Marching Standing Exercise Name Standing Marching Side bilateral Resistance 4# Reps/Minutes x20 Other Exercises Resisted Ambulation Other Exercise Name Resisted side-stepping Side bilateral Resistance Green Equipment Used T-band Comments Band around shoes PT-OP-T Assessment and Plan Start: 01/08/19 17:03 Freq: Status: Active Protocol: Document 02/10/19 15:20 DCW (Rec: 02/10/19 15:57 DCW [id number]) Physical Therapy Assessment Impairments Impairments Activity Tolerance Balance Functional Activities Functional Mobility Gait Strength Goals Three Impairment LE weakness Sas Developer Analyst Goal (LTG) Pt to have LE MMT grossly 4/5 bilaterally LTG Duration 03/10/19 Two Impairment Pt has an average walking speed of 1.55 ft/sec during 6 MWT Sas Developer Analyst Goal (LTG) Pt to increase walking speed during 6 MWT to >1.97 ft/sec, which is the cutoff that has been found to find further functional decline in older adults LTG Duration 03/10/19 One Impairment Pt does not have an appropriate home exercise program Short Term Goal (STG) Pt to be independent and compliant with an appropriate HEP STG Duration 02/07/19 Assessment Summary Assessment Pt did very well today, only required one rest break and was able to maintain her balance on the Shuttle Balance with less difficulty than normal. Physical Therapy Plan Frequency and Duration Frequency of Treatment 2x/Week Duration of Treatment 10 weeks Plan of Care Start Date 01/08/19 Plan of Care End Date 03/19/19 Therapeutic Interventions Therapeutic Interventions Aquatic Therapy Balance Training Coordination Training Gait Training Home Exercise Program Manual Therapy Neuromuscular Re-education Patient/Caregiver Education Self-Care/Home Management Soft Tissue Mobilization Therapeutic Activities Therapeutic Exercises Next Visit Focus/Plan Next Note Type Treatment Note Next Visit Plan Balance training, LE strengthening, increased activity tolerance
--- NOTE | 2019-02-14 15:12 | PT.OTN ---
Current Diagnoses Other abnormalities of gait and mobility (02/14/19) Weakness (02/14/19) Other fatigue (02/14/19) Physical Therapy Treatment Note PT-OP-A Visit Information Start: 01/08/19 17:03 Freq: Status: Active Protocol: Document 02/14/19 14:30 DCW (Rec: 02/14/19 15:07 DCW [id number]) Out-Patient Physical Therapy Visit Information Visit Information Visit Type Discharge Summary Visit Start Time 14:30 Visit Stop Time 15:15 Total Visit Minutes 45 Visit Number 10 Number of PUBLIC AREA ATTENDANT Visits 0 Evaluation Information Evaluation Date 01/08/19 PT-OP-B Current Condition Start: 01/08/19 17:03 Freq: Status: Active Protocol: Document 01/08/19 15:15 DCW (Rec: 01/08/19 17:33 DCW [id number]) Current Condition History of Current Condition Onset Date 3 months Current Complaints Fatigue, imbalance, weakness History of Current Condition Pt is an 83 year old female presenting with skilled therapy with complaints of fatigue, weakness, and declining balance. Pt has previously been treated at this clinic multiple times for various reasons. Pt reports that three months ago, she fell in her bathroom onto her back and hit her head on the carpeted floor. Pt was then hospitalized with a UTI / c e. coli and a blood infection, which resulted in a week-long hospitalization. Pt notes that since that time, she has felt off balance and has had trouble regaining my stamina. Treatment Goals Patient/Caregiver Goals I want to be able to walk through [employer] without being out of breath. Prior Functional Status Baseline Function- ADL's Independent Baseline Function- Mobility Independent Current Functional Impairments (Reported) Functional Limitations- Other Pt unable to walk around [employer] when shopping for groceries. 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 Right now, its my right hip. PT-OP-D Balance Start: 01/08/19 17:03 Freq: Status: Active Protocol: Document 02/14/19 14:30 DCW (Rec: 02/14/19 15:12 DCW [id number]) Balance Tests [place] Balance Test [place] Balance Test Score 49/56 [place] Impairment Rating 1 to 19% Impaired (Score 45-55 ) [place] Balance Assessment Evaluation Sitting to Standing Ability Independent w/out Hands Unsupported Stance Safely- 2 minutes Sitting Unsupported, Feet on Floor Safely- 2 minutes Standing to Sitting Ability Safely, Minimal Hand Use Transfer Ability Safely, Minimal Hand Use Unsupported Stance- Eyes Closed Safely, 10 seconds Unsupported Stance- Eyes Open Independent, 1 minute Reaching Forward Standing Confidently, 10 inches Pick- Up Object From Floor Independent/Safe Look Behind Shoulder - Standing Shifts Weight Unilateral Turning 360 Degrees Turns slowly, but safely Unsupported Stance, Alternating Feet on (I)- 8 Steps in 20 secs Stair Unsupported Tandem Stance Holds Tandem- 30 seconds Unilateral Leg Stance Lifts Leg/Unable to Hold Total Score [place] Total Score (out of 56 points) 49 [place] Impairment Rating 1 to 19% Impaired (Score 45-55 ) PT-OP-E Functional Tests Start: 01/08/19 17:03 Freq: Status: Active Protocol: Document 02/14/19 14:30 DCW (Rec: 02/14/19 15:12 DCW [id number]) Functional Tests 6 Minute Walk Test Distance 633 Device Used none Comments 1.76 ft/sec PT-OP-M Strength Start: 01/08/19 17:03 Freq: Status: Active Protocol: Document 02/14/19 14:30 DCW (Rec: 02/14/19 15:12 DCW [id number]) Hip Strength Hip Manual Muscle Testing Right Flexion (L2) 4- Good- Abduction 4 Good Adduction 4+ Good+ External Rotation 4+ Good+ Internal Rotation 4+ Good+ Left Flexion (L2) 4- Good- Abduction 4 Good Adduction 4+ Good+ External Rotation 4+ Good+ Internal Rotation 4+ Good+ Knee Strength Knee Manual Muscle Testing Right Flexion (S2) 4 Good Extension (L3) 4 Good Left Flexion (S2) 4 Good Extension (L3) 4 Good PT-OP-Q Treatments Start: 01/08/19 17:03 Freq: Status: Active Protocol: Document 02/14/19 14:30 DCW (Rec: 02/14/19 15:07 DCW [id number]) Cardio Equipment Recumbent Elliptical (Biodex) Duration (Minutes) 3 Resistance 4 Seat Position 8 Gym Equipment Shuttle Recovery Unilateral Squats Resistance 37# Reps/Time 2x15 Bilateral Squats Resistance 75# Reps/Time 2x15 Therapeutic Exercises Other Exercises Hurdles Other Exercise Name Fwd/Side-stepping Hurdles Resisted Ambulation Other Exercise Name Resisted side-stepping Side bilateral Resistance Green Equipment Used T-band Comments Band around shoes Neuro Re-Education Treatment Balance Activities 1 Details Testing Comments 6 MWT, [place] PT-OP-T Assessment and Plan Start: 01/08/19 17:03 Freq: Status: Active Protocol: Document 02/14/19 14:30 DCW (Rec: 02/14/19 15:07 DCW [id number]) Physical Therapy Assessment Impairments Impairments Activity Tolerance Balance Functional Activities Functional Mobility Gait Strength Goals Three Impairment LE weakness Penitentiary Goal (LTG) Pt to have LE MMT grossly 4/5 bilaterally LTG Duration 03/10/19 - Improving Two Impairment Pt has an average walking speed of 1.55 ft/sec during 6 MWT Penitentiary Goal (LTG) Pt to increase walking speed during 6 MWT to >1.97 ft/sec, which is the cutoff that has been found to find further functional decline in older adults 02/14/19: 1.76 ft/sec LTG Duration 03/10/19 - Improving One Impairment Pt does not have an appropriate home exercise program Short Term Goal (STG) Pt to be independent and compliant with an appropriate HEP STG Duration Improving Progress Towards Goals Progress Towards Goals Progressing Toward Goals Assessment Summary Assessment Pt showing improvement, and since she has recently joined [employer], she is planning on increasing her workouts at the gym. Pt comfortable with discharge at this time. Physical Therapy Plan Frequency and Duration Frequency of Treatment 2x/Week Duration of Treatment 10 weeks Plan of Care Start Date 01/08/19 Plan of Care End Date 03/19/19 Therapeutic Interventions Therapeutic Interventions Aquatic Therapy Balance Training Coordination Training Gait Training Home Exercise Program Manual Therapy Neuromuscular Re-education Patient/Caregiver Education Self-Care/Home Management Soft Tissue Mobilization Therapeutic Activities Therapeutic Exercises Discharge Physical Therapy Discharge Reasons Patient Request Next Visit Focus/Plan Next Note Type Discharge Summary
== END 2019-02-14 15:54 | disposition home or self-care (01) ==
LOC: PHYS 14:30
PROVIDERS: PCP Internal Medicine; Visit Provider Internal Medicine
DX: R53.1 Weakness (principal); R26.89 Other abnormalities of gait and mobility; R53.83 Other fatigue
CPT/HCPCS: 97110; 97112; 97140; 97161

== ENCOUNTER → 2019-06-16 14:35 | Outpatient (CLI) | payer MEDICARE, OTHER, SELFPAY ==
[2018-09-26 20:07] VITALS: BMI 31.6
--- NOTE | 2019-06-16 14:37 | DI.RAD.S_ITS ---
PROCEDURE: XR CHEST 2V INDICATIONS: COUGH TECHNIQUE: 2 views of the chest were acquired. COMPARISON: [facility], CT, ABDOMEN/PELVIS WITH CONTRAST, 01/19/2011, 9:48. [facility], CR, XR CHEST 1V, 09/30/2018, 8:03. [facility], CR, XR CHEST 1V, 09/26/2018, 13:33. FINDINGS: Surgical changes and devices: Bilateral breast implants, better seen on prior CT scanning. Lungs and pleura: Lungs are clear. No pleural effusions or pneumothorax. Mediastinum: Mediastinal contours are normal. Heart size is normal. Bones and chest wall: No suspicious bony abnormalities. Soft tissues appear unremarkable. IMPRESSION: Source of cough not found. Bilateral breast implants produces increased radiodensity over the lower lungs bilaterally on the frontal projection, but can be seen to be present most accurately on prior CT scanning that included the lower chest 01/19/11. Dictated by: Akin Ro M.D. on 06/16/2019 at 15:08 Approved by: Akin Ro M.D. on 06/16/2019 at 15:10
== END ==
PROVIDERS: PCP Internal Medicine; Visit Provider Internal Medicine
DX: R05 Cough (principal); Z98.82 Breast implant status
CPT/HCPCS: 71046

== ENCOUNTER → 2019-08-28 12:01 | Outpatient (CLI) | payer MEDICARE, OTHER, SELFPAY ==
[2018-09-26 20:07] VITALS: BMI 31.6
[2019-08-28 13:08] LABS: Appearance Urine UA CLOUDY; Bilirubin Urine UA NEGATIVE (NEGATIVE); Color Urine UA YELLOW; Glucose Urine UA NEGATIVE (Negative); Ketones Urine UA NEGATIVE (NEGATIVE); Leukocyte Esterase Urine UA 2+ (NEGATIVE); Nitrite Urine UA NEGATIVE (Negative); Occult Blood Urine UA TRACE-LYSED (Negative); Protein Urine UA NEGATIVE (Negative); Urobilinogen Urine UA 0.2 E.U./dL (0.2)
[2019-08-28 13:30] LABS: RBC Urine 1-5/HPF (0-5/HPF); WBC Urine >100/HPF (0-5/HPF)
[2019-08-28 13:31] LABS: Bacteria Urine Moderate (10-30); Culture Indicated Urine Specimen Cultured; Squamous Epithelial Cell Urine 1-5 /HPF (0-5/HPF)
== END ==
PROVIDERS: PCP Internal Medicine; Referring Provider Internal Medicine; Visit Provider Internal Medicine
DX: R39.89 Other symptoms and signs involving the genitourinary system (principal)
CPT/HCPCS: 81001; 87077; 87086; 87186

== ENCOUNTER → 2019-09-09 15:28 | Outpatient (CLI) | payer MEDICARE, OTHER, SELFPAY ==
[2018-09-26 20:07] VITALS: BMI 31.6
[2019-09-09 15:44] LABS: Bacteria Urine None Seen
[2019-09-09 18:00] LABS: Appearance Urine UA CLEAR; Bilirubin Urine UA NEGATIVE (NEGATIVE); Color Urine UA YELLOW; Glucose Urine UA NEGATIVE (Negative); Ketones Urine UA NEGATIVE (NEGATIVE); Leukocyte Esterase Urine UA NEGATIVE (NEGATIVE); Nitrite Urine UA NEGATIVE (Negative); Occult Blood Urine UA NEGATIVE (Negative); Protein Urine UA NEGATIVE (Negative); Specific Gravity Urine UA 1.015 (1.000-1.035); Urobilinogen Urine UA 0.2 E.U./dL (0.2)
[2019-09-09 18:19] LABS: Culture Indicated Urine Cult Not Indicated; RBC Urine 0-1/HPF (0-5/HPF); Squamous Epithelial Cell Urine 0-1 /HPF (0-5/HPF); WBC Urine 0-1/HPF (0-5/HPF); pH Urine UA 6.5 (4.5-8.0)
== END ==
PROVIDERS: PCP Internal Medicine; Referring Provider Internal Medicine; Visit Provider Internal Medicine
DX: R39.89 Other symptoms and signs involving the genitourinary system (principal)
CPT/HCPCS: 81001; 87086

== ENCOUNTER → 2019-09-15 11:16 | Outpatient (CLI) | payer MEDICARE, OTHER, SELFPAY ==
[2018-09-26 20:07] VITALS: BMI 31.6
--- NOTE | 2019-09-19 16:43 | PM.PFT.1 ---
Pulmonary Function Test Referral & Results Date Patient Seen: 09/15/19 Requesting provider: Vincenzo Talamantes Indication: Shortness of breath Results: The spirometry demonstrates an FVC of 0.96 L which is 40% of predicted. The FEV1 was measured at 0.88 L which is 49% of predicted. The FEV1/FVC ratio was 92 which is 126% of predicted. Following the administration of bronchodilator there was no appreciable change. Lung volumes show an SVC of 2.47 L which is 96% of predicted. The diffusing capacity was not performed as patient was unable to perform The maximum voluntary ventilation was severely reduced Interpretation: Based on severe reduction in forced volumes without evidence of any benefit following bronchodilator this is consistent with severe restriction despite relatively normal lung volumes (SVC)
== END ==
PROVIDERS: PCP Internal Medicine; Referring Provider Internal Medicine; Visit Provider Internal Medicine
DX: R06.00 Dyspnea, unspecified (principal); R06.02 Shortness of breath; J66.8 Airway disease due to other specific organic dusts
CPT/HCPCS: 94060; 94726

== ENCOUNTER → 2019-09-24 11:09 | Outpatient (CLI) | payer MEDICARE, OTHER, SELFPAY ==
[2018-09-26 20:07] VITALS: BMI 31.6
--- NOTE | 2019-09-24 11:11 | DI.RAD.S_ITS ---
PROCEDURE: XR CHEST 2V INDICATIONS: restrictive lung disease TECHNIQUE: 2 views of the chest were acquired. COMPARISON: [facility], CT, ABDOMEN/PELVIS WITH CONTRAST, 01/19/2011, 9:48. [facility], CR, XR CHEST 2V, 06/16/2019, 14:42. [facility], CR, XR CHEST 1V, 09/30/2018, 8:03. FINDINGS: Surgical changes and devices: None. Lungs and pleura: Lungs are abnormal with mild interstitial prominence. No pleural effusions or pneumothorax. Mediastinum: Mediastinal contours are normal. Heart size is normal. Bones and chest wall: No suspicious bony abnormalities. Soft tissues appear unremarkable. IMPRESSION: Mild interstitial prominence bilaterally. Bilateral breast implants superimposed on the lower half of the chest bilaterally, resulting in increased radiodensity over those areas, as expected. Dictated by: Akin Ro M.D. on 09/24/2019 at 11:51 Approved by: Akin Ro M.D. on 09/24/2019 at 11:52
== END ==
PROVIDERS: PCP Internal Medicine; Referring Provider Internal Medicine; Visit Provider Internal Medicine
DX: J98.4 Other disorders of lung (principal); Z98.82 Breast implant status
CPT/HCPCS: 71046

== ENCOUNTER → 2019-11-19 11:26 | Outpatient (CLI) | payer MEDICARE, OTHER, SELFPAY ==
[2019-10-29 08:56] VITALS: BMI 31.6
[2019-11-19 12:50] LABS: Add Manual Diff / Slide Review NO; Basophils Absolute Auto 100 /uL (0-100); Basophils Percent Auto 0.8 % (0-2); Eosinophils Absolute Auto 200 /uL (0-450); Hematocrit 40.6 % (36-46); Hemoglobin 13.9 g/dL (12.0-16.0); Lymphocytes Absolute Auto 1500 /uL (1100-4500); Lymphocytes Percent Auto 24.2 % (25-40); Mean Corpuscular HGB Conc 34.2 % (30-36); Mean Corpuscular Volume 87.9 fL (80-100); Monocytes Absolute Auto 400 /uL (0-900); Monocytes Percent Auto 5.5 % (3-14); Neutrophils Absolute Auto 4300 /uL (1500-7000); Neutrophils Percent Auto 66.5 % (50-75); Platelet Count 109 X10^3/uL (150-400); Red Blood Cell Count 4.62 X10^6/uL (4.0-5.2); Red Cell Distribution Width 14.7 % (11.6-14.8); White Blood Cell Count 6.4 X10^3/uL (4.5-11.0)
[2019-11-19 13:24] LABS: Erythrocyte Sedimentation Rate 27 MM/HR (0-20)
[2019-11-19 13:44] LABS: Alanine Aminotransferase 18 IU/L (<35); Albumin Globulin Ratio 1.6 (1.0-2.8); Alkaline Phosphatase 77 U/L (38-126); Aspartate Aminotransferase 25 IU/L (14-36); BUN Creatinine Ratio 18.8 (6-22); Bilirubin Total 0.5 mg/dL (0.2-1.3); Blood Urea Nitrogen 18 mg/dL (7-17); C-Reactive Protein Quant < 0.5 mg/dL (<1.0); Calcium 9.9 mg/dL (8.4-10.2); Carbon Dioxide 26 mmol/L (22-32); Chloride 103 mmol/L (98-107); Estimated Glomerular Filt Rate 55.2 mL/min (>60); Globulin 2.5 g/dL (1.7-4.1); Glucose 92 mg/dL (80-110); HEMOLYSIS < 15 (0-50); Potassium 4.2 mmol/L (3.4-5.1); Sodium 138 mmol/L (137-145); Total Protein 6.5 g/dL (6.3-8.2)
[2019-11-19 13:55] LABS: Free T4, Direct Thyroxine 1.62 ng/dL (0.78-2.19)
[2019-11-19 14:09] LABS: Thyroid Stimulating Hormone 2.04 uIU/mL (0.47-4.68)
== END ==
PROVIDERS: PCP Internal Medicine; Referring Provider Internal Medicine; Visit Provider Internal Medicine
DX: E03.9 Hypothyroidism, unspecified (principal); E78.2 Mixed hyperlipidemia; R06.02 Shortness of breath
CPT/HCPCS: 36415; 80053; 84439; 84443; 85025; 85651; 86140

== ENCOUNTER → 2019-12-23 10:54 | Outpatient (CLI) | payer MEDICARE, OTHER, SELFPAY ==
[2019-10-29 08:56] VITALS: BMI 31.6
[2019-12-23 12:18] LABS: Appearance Urine UA CLEAR; Bilirubin Urine UA NEGATIVE (NEGATIVE); Color Urine UA YELLOW; Glucose Urine UA NEGATIVE (Negative); Ketones Urine UA NEGATIVE (NEGATIVE); Leukocyte Esterase Urine UA NEGATIVE (NEGATIVE); Nitrite Urine UA POSITIVE (Negative); Occult Blood Urine UA NEGATIVE (Negative); Protein Urine UA NEGATIVE (Negative); Urobilinogen Urine UA 0.2 E.U./dL (0.2)
[2019-12-23 12:23] LABS: RBC Urine None Seen (0-5/HPF)
[2019-12-23 12:31] LABS: Bacteria Urine Many (>30); Culture Indicated Urine Specimen Cultured; WBC Urine 1-5/HPF (0-5/HPF)
== END ==
PROVIDERS: PCP Internal Medicine; Referring Provider Internal Medicine; Visit Provider Internal Medicine
DX: R30.0 Dysuria (principal)
CPT/HCPCS: 81003; 81015; 87077; 87086; 87186

== ENCOUNTER → 2020-02-16 15:52 | Outpatient (CLI) | payer MEDICARE, OTHER, SELFPAY ==
[2019-10-29 08:56] VITALS: BMI 31.6
--- NOTE | 2020-02-16 15:53 | DI.ECHO.S_ITS ---
[place] [facility] +---------+ : : [address] : : : : [id number] : : : : Phone: [phone]+ Echocardiogram Report + + :Name: LEILANI LEE Study Date: 02/16/2020 Height: 64 in : :[facility] Weight: 192 lb : : Gender: Female BSA: 1.9 m2 : :: 1935 Age: 84 yrs BP: 122/72 mmHg: :Reason For Study: Cardiomegaly : :Ordering Physician: SHEILA, : :CHERYL Espino Performed By: Amanda Sterling : :Referring: CHERYL SOSA : + + Interpretation Summary Technically difficult study. Mild concentric left ventricular hypertrophy with ejection fraction 55-60%. Mild aortic valve sclerosis. Moderate mitral annular calcification. Mild to moderate tricuspid regurgitation. The right ventricular systolic pressure is estimated to be at least 41 mmHg based on an estimated right atrial pressure of 3 mm Hg. Procedure: A two-dimensional transthoracic echocardiogram with color flow and Doppler was performed. The study quality was technically difficult. The study quality was technically limited. The apical views were difficult to obtain and are suboptimal in quality. The patient was in sinus rhythm with heart rates between 65-73 bpm during the exam. Left Ventricle: The left ventricle is normal in size. There is mild concentric left ventricular hypertrophy. The left ventricular ejection fraction is grossly normal. The ejection fraction is estimated to be 55-60%. There are no obvious focal wall motion abnormalities noted but poor endocardial definition reduces the sensitivity for the detection of such. Right Ventricle: The right ventricle is not well visualized. Atria: The left atrium grossly appears normal in size. Right atrium not well visualized secondary to technical limitations. There is no Doppler evidence for an interatrial shunt. Mitral Valve: There is moderate mitral annular calcification. The mitral valve leaflets appear mildly thickened, but open well. There is trace mitral regurgitation. Aortic Valve: The aortic valve is trileaflet. The aortic valve opens well. There is mild aortic valve sclerosis. There is no aortic valve stenosis. No aortic regurgitation is present. Tricuspid Valve: The tricuspid valve is not well visualized, but is grossly normal. There is mild to moderate tricuspid regurgitation. The right ventricular systolic pressure is estimated to be at least 41 mmHg based on an estimated right atrial pressure of 3 mm Hg. Pulmonic Valve: The pulmonic valve is not well seen, but is grossly normal. There is no pulmonic valvular regurgitation. Great Vessels: The aortic root is normal size. The aortic root is mildly dilated. The IVC is of normal diameter and collapses greater than 50% with a sniff. This suggests a low right atrial pressure of 3 mm Hg. Pericardium/ Pleura There is no pericardial effusion. There is no pleural effusion. MMode/2D Measurements & Calculations LVIDd: 3.2 cm LVOT diam: 1.9 cm LVIDs: 2.3 cm Ao root diam: 3.1 cm FS: 29.1 % asc Aorta Diam: 3.7 cm IVSd: 1.2 cm Ao Arch Diam (Prox Trans): 3.5 cm LVPWd: 0.96 cm LV levy. diameter/BSA (cm/m^2): 1.7 LV sys. diameter/BSA (cm/m^2): 1.2 LA A2 area: 17.8 cm2 IVC diam: 1.5 cm Doppler Measurements & Calculations Ao V2 max: 107.5 cm/sec LVOT Max Kenn: 66.7 cm/sec Ao V2 mean: 79.9 cm/sec LV V1 max P.8 mmHg Ao max P.6 mmHg LV V1 VTI: 13.3 cm Ao mean P.8 mmHg MERON(I,D): 1.4 cm2 Ao V2 VTI: 25.8 cm MERON(V,D): 1.7 cm2 sev ratio: 0.52 MERON indexed to BSA (cm^2/m^2): 0.73 MV E max kenn: 63.7 cm/sec TR max kenn: 309.5 cm/sec MV A max kenn: 62.6 cm/sec TR max P.4 mmHg MV E/A: 1.0 PA V2 max: 69.5 cm/sec Med Peak E' Kenn: 6.5 cm/sec PA V2 mean: 44.6 cm/sec E/E' med: 9.8 PA mean P.95 mmHg Lat Peak E' Kenn: 5.7 cm/sec PA pr(Accel): 37.9 mmHg E/E' lat: 11.2 E/e' average: 10.5 MV dec time: 0.22 sec SV(LVOT): 36.3 ml Electronically signed by: Zheng Melendez on Reading Physician:02/16/2020 06:57 PM
== END ==
PROVIDERS: PCP Internal Medicine; Referring Provider Internal Medicine; Visit Provider Internal Medicine
DX: I08.2 Rheumatic disorders of both aortic and tricuspid valves (principal)
CPT/HCPCS: 93306

== ENCOUNTER → 2020-03-24 14:44 | Outpatient (CLI) | payer MEDICARE, OTHER, SELFPAY ==
[2019-10-29 08:56] VITALS: BMI 31.6
[2020-03-24 16:49] LABS: Appearance Urine UA CLEAR; Bilirubin Urine UA NEGATIVE (NEGATIVE); Color Urine UA YELLOW; Glucose Urine UA NEGATIVE (Negative); Ketones Urine UA NEGATIVE (NEGATIVE); Leukocyte Esterase Urine UA 1+ (NEGATIVE); Nitrite Urine UA NEGATIVE (Negative); Occult Blood Urine UA TRACE-INTACT (Negative); Protein Urine UA NEGATIVE (Negative); Urobilinogen Urine UA 0.2 E.U./dL (0.2)
[2020-03-24 16:54] LABS: pH Urine UA 6.5 (4.5-8.0)
[2020-03-24 16:56] LABS: RBC Urine 0-1/HPF (0-5/HPF); Squamous Epithelial Cell Urine 0-1 /HPF (0-5/HPF); WBC Urine 1-5/HPF (0-5/HPF)
[2020-03-24 16:57] LABS: Bacteria Urine Occasional (0-1); Culture Indicated Urine Specimen Cultured
== END ==
PROVIDERS: PCP Internal Medicine; Referring Provider Student in an Organized Health Care Education/Training Program; Visit Provider Student in an Organized Health Care Education/Training Program
DX: R30.0 Dysuria (principal)
CPT/HCPCS: 81001; 87086

== ENCOUNTER → 2020-05-27 10:48 | Outpatient (CLI) | payer MEDICARE, OTHER, SELFPAY ==
[2019-10-29 08:56] VITALS: BMI 31.6
--- NOTE | 2020-05-27 10:50 | DI.RAD.S_ITS ---
PROCEDURE: XR FOOT LT MIN 3V INDICATIONS: s/p fall TECHNIQUE: 3 views of the foot were acquired. COMPARISON: None. FINDINGS: Bones: No fractures or dislocations. No suspicious bony lesions. There is metatarsal adductus and hallux valgus. Severe degenerative joint disease at the multiple intertarsal joints and tarsometatarsal joints, moderate degenerative joint disease in multiple interphalangeal joints. Calcaneal spurring. Soft tissues: No tibiotalar joint effusion. Achilles tendon appears normal. IMPRESSION: 1. No fracture or dislocation. 2. Degenerative changes as described. Dictated by: Hanna Raines M.D. on 05/27/2020 at 17:10 Approved by: Hanna Raines M.D. on 05/27/2020 at 17:13
--- NOTE | 2020-05-27 10:50 | DI.RAD.S_ITS ---
PROCEDURE: XR HIP W PEL IF DONE LT 2V INDICATIONS: s/p fall TECHNIQUE: AP pelvis with lateral view(s) of the left hip(s). COMPARISON: [facility], CR, SPINE LUMB 2 OR 3VW, 12/23/2014, 12:07. [facility], CR, XR PELVIS WITH LATERAL HIP RIGHT, 08/29/2018, 14:37. FINDINGS: Bones: No fractures or dislocations. Pelvic ring appears intact. No suspicious bony lesions. Degenerative joint disease in sacroiliac joint and left hip. Osteitis pubis. Severe degenerative disc disease in the lower lumbar spine. Soft tissues: The visualized bowel gas pattern is normal. No suspicious soft tissue calcifications. IMPRESSION: No fracture or dislocation. If clinical symptoms persist or clinical suspicion for internal derangement is high, such as CT or MRI is suggested for further evaluation. Dictated by: Hanna Raines M.D. on 05/27/2020 at 16:26 Approved by: Hanna Raines M.D. on 05/27/2020 at 16:28
--- NOTE | 2020-05-27 10:50 | DI.RAD.S_ITS ---
PROCEDURE: XR KNEE LT 1TO2V INDICATIONS: s/p fall TECHNIQUE: 2 view(s) of the knee acquired. COMPARISON: [facility], CR, XR KNEE ARTHRITIC SERIES LT, 03/12/2018, 9:53. FINDINGS: Bones: No fracture or dislocation. 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 Soft tissues: Overlying postoperative changes are noted. IMPRESSION: No fracture or dislocation. Dictated by: Hanna Raines M.D. on 05/27/2020 at 16:31 Approved by: Hanna Raines M.D. on 05/27/2020 at 16:32
== END ==
PROVIDERS: PCP Internal Medicine; Referring Provider Internal Medicine; Visit Provider Internal Medicine
DX: T14.90XA Injury, unspecified, initial encounter (principal); M16.12 Unilateral primary osteoarthritis, left hip; M46.1 Sacroiliitis, not elsewhere classified; M19.072 Primary osteoarthritis, left ankle and foot; M20.12 Hallux valgus (acquired), left foot; M77.32 Calcaneal spur, left foot; Z96.652 Presence of left artificial knee joint; W10.1XXA Fall (on)(from) sidewalk curb, initial encounter
CPT/HCPCS: 73502; 73560; 73630

== ENCOUNTER → 2020-07-08 12:43 | Outpatient (CLI) | payer MEDICARE, OTHER, SELFPAY ==
[2019-10-29 08:56] VITALS: BMI 31.6
[2020-07-08 13:02] LABS: Bacteria Urine None Seen; RBC Urine None Seen (0-5/HPF); WBC Urine None Seen (0-5/HPF)
[2020-07-08 13:26] LABS: Appearance Urine UA CLEAR; Bilirubin Urine UA NEGATIVE (NEGATIVE); Color Urine UA YELLOW; Glucose Urine UA NEGATIVE (Negative); Ketones Urine UA NEGATIVE (NEGATIVE); Leukocyte Esterase Urine UA NEGATIVE (NEGATIVE); Nitrite Urine UA NEGATIVE (Negative); Occult Blood Urine UA TRACE-INTACT (Negative); Protein Urine UA NEGATIVE (Negative); Urobilinogen Urine UA 0.2 E.U./dL (0.2)
[2020-07-08 13:36] LABS: Culture Indicated Urine Cult Not Indicated; Urine Comments Microscopic Normal
== END ==
PROVIDERS: PCP Internal Medicine; Referring Provider Internal Medicine; Visit Provider Internal Medicine
DX: R30.0 Dysuria (principal)
CPT/HCPCS: 81001

== ENCOUNTER → 2020-10-05 08:42 | Outpatient (CLI) | payer MEDICARE, OTHER, SELFPAY ==
[2019-10-29 08:56] VITALS: BMI 31.6
[2020-10-05 09:25] LABS: Add Manual Diff / Slide Review NO; Basophils Absolute Auto 100 /uL (0-100); Basophils Percent Auto 0.8 % (0-2); Eosinophils Absolute Auto 200 /uL (0-450); Eosinophils Percent Auto 2.7 % (2-4); Hematocrit 42.6 % (36-46); Hemoglobin 14.2 g/dL (12.0-16.0); Lymphocytes Absolute Auto 1900 /uL (1100-4500); Lymphocytes Percent Auto 25.9 % (25-40); Mean Corpuscular HGB Conc 33.4 % (30-36); Mean Corpuscular Hemoglobin 29.3 PG (26-34); Mean Corpuscular Volume 87.9 fL (80-100); Monocytes Absolute Auto 500 /uL (0-900); Monocytes Percent Auto 6.1 % (3-14); Neutrophils Absolute Auto 4800 /uL (1500-7000); Neutrophils Percent Auto 64.5 % (50-75); Platelet Count 115 X10^3/uL (150-400); Red Blood Cell Count 4.85 X10^6/uL (4.0-5.2); Red Cell Distribution Width 14.9 % (11.6-14.8); White Blood Cell Count 7.4 X10^3/uL (4.5-11.0)
[2020-10-05 09:55] LABS: Alanine Aminotransferase 15 IU/L (<35); Albumin 4.1 g/dL (3.5-5.0); Albumin Globulin Ratio 1.8 (1.0-2.8); Alkaline Phosphatase 86 U/L (38-126); Aspartate Aminotransferase 20 IU/L (14-36); BUN Creatinine Ratio 22.6 (6-22); Bilirubin Total 0.4 mg/dL (0.2-1.3); Blood Urea Nitrogen 24 mg/dL (7-17); Calcium 9.9 mg/dL (8.4-10.2); Carbon Dioxide 29 mmol/L (22-32); Chloride 103 mmol/L (98-107); Cholesterol 122 mg/dL (140-199); Estimated Glomerular Filt Rate 49.2 mL/min (>60); Globulin 2.3 g/dL (1.7-4.1); Glucose 111 mg/dL (80-110); HDL Cholesterol 62 mg/dL (40-60); HEMOLYSIS < 15 (0-50); LDL Cholesterol Calculated 45 mg/dL (<100); Potassium 4.3 mmol/L (3.4-5.1); Sodium 137 mmol/L (137-145); Total Protein 6.4 g/dL (6.3-8.2); Triglycerides 76 mg/dL (35-150)
[2020-10-05 10:03] LABS: NT-proBNP (BNP-Adult 18+) 837 pg/mL (<450)
[2020-10-05 10:08] LABS: Free T4, Direct Thyroxine 1.69 ng/dL (0.78-2.19)
[2020-10-05 10:22] LABS: Thyroid Stimulating Hormone 1.64 uIU/mL (0.47-4.68)
== END ==
PROVIDERS: PCP Internal Medicine; Referring Provider Internal Medicine; Visit Provider Internal Medicine
DX: E03.9 Hypothyroidism, unspecified (principal); R06.00 Dyspnea, unspecified; I10 Essential (primary) hypertension; E78.2 Mixed hyperlipidemia; J98.4 Other disorders of lung
CPT/HCPCS: 36415; 80053; 80061; 83880; 84439; 84443; 85025

== ENCOUNTER → 2023-09-27 13:00 | Outpatient (CLI) | payer MEDICARE, OTHER, SELFPAY ==
[2023-07-09 19:59] VITALS: BMI 34.1
[2023-09-27 15:34] LABS: Free T4, Direct Thyroxine 1.94 ng/dL (0.78-2.19)
[2023-09-27 15:48] LABS: Thyroid Stimulating Hormone 0.072 uIU/mL (0.47-4.68)
[2023-09-27 16:25] LABS: BUN Creatinine Ratio 29.1 (6-22); Blood Urea Nitrogen 43 mg/dL (7-17); Calcium 9.7 mg/dL (8.4-10.2); Carbon Dioxide 27 mmol/L (22-32); Chloride 102 mmol/L (98-107); Estimated Glomerular Filt Rate 34 mL/min (>60); Glucose 151 mg/dL (80-110); HEMOLYSIS < 15 (0-50); Potassium 4.5 mmol/L (3.4-5.1); Sodium 137 mmol/L (137-145)
[2023-09-27 22:29] LABS: Hemoglobin A1C% w Est Avg Glu 6.2 % (4.0-6.0)
== END ==
PROVIDERS: PCP Internal Medicine; Referring Provider Internal Medicine Cardiovascular Disease; Visit Provider Internal Medicine Cardiovascular Disease
DX: R73.03 Prediabetes (principal); I10 Essential (primary) hypertension; E78.5 Hyperlipidemia, unspecified
CPT/HCPCS: 36415; 80048; 83036; 84439; 84443

== ENCOUNTER → 2023-11-18 13:53 | Outpatient (CLI) | payer MEDICARE, OTHER, SELFPAY ==
[2023-07-09 19:59] VITALS: BMI 34.1
--- NOTE | 2023-11-18 13:55 | DI.MRI.S_ITS ---
PROCEDURE: MR LUMBAR SPINE WO CON INDICATIONS: Progressive stenosis with right greater than left hip pain TECHNIQUE: Noncontrast sagittal T1 spin echo and T2 fast echo, sagittal STIR, and T2 fast spin echo through the lumbar spine. In cases with scoliosis, additional coronal T2 fast spin echo may be performed. COMPARISON: [facility], MR, L-SPINE WITHOUT CONTRAST, 03/14/2016, 10:49. FINDINGS: Image quality: Excellent. Alignment and Curvature: There is 34? left convex scoliosis which appears slightly increased in extent from the 30? visualized on the comparison MRI dated March 14, 2016. This is centered at L2. There is also left L3-4 listhesis which is unchanged from the prior study. Bone Marrow: Marrow is of normal overall signal. No acute vertebral body compression fractures. Spinal Cord: Conus medullaris terminates at the L1 level. Visualized cord demonstrates normal signal and size. Paraspinous Soft Tissues: No paravertebral masses. A T2 hyperintense lesion is present at the upper pole of the right kidney suggesting the presence of a cyst which is incompletely characterized on this limited view. The left kidney is not visualized and may be surgically absent. T12-L1: Severe disc desiccation and height loss. Moderate facet ligamentum flavum hypertrophy. No canal stenosis. No foraminal stenosis. L1-L2: Severe disc desiccation and height loss. Severe facet ligamentum flavum hypertrophy. No canal stenosis. Mild right foraminal narrowing. No left foraminal stenosis. L2-L3: Severe disc desiccation and height loss. Moderate facet ligamentum flavum hypertrophy. No canal stenosis. Severe right foraminal stenosis. No left neural foraminal narrowing. L3-L4: Severe disc desiccation and height loss. Severe facet and ligamentum flavum hypertrophy. Mild canal stenosis. Mild right foraminal stenosis. L4-L5: Severe disc desiccation and height loss. Severe facet ligamentum flavum hypertrophy. No canal stenosis. Moderate left foraminal narrowing. No right foraminal stenosis. L5-S1: Severe disc desiccation and height loss. Severe facet and ligamentum flavum hypertrophy. No canal stenosis. Moderate left foraminal stenosis with flattening of the exiting nerve root. IMPRESSION: 1. Left convex scoliosis and listhesis, slightly increased in extent when compared with the study dated March 14, 2016. 2. Multilevel severe disc desiccation and height loss throughout the lumbar spine. 3. Severe right neural foraminal stenosis at L2-3, moderate left foraminal stenosis at L4-5 and L5-S1. Dictated by: Tess Ramirez M.D. on 11/19/2023 at 9:05 Approved by: Tess Ramirez M.D. on 11/19/2023 at 9:12
--- NOTE | 2023-11-18 14:19 | DI.RAD.S_ITS ---
PROCEDURE: XR LUMBAR SPINE MIN 4V INDICATIONS: Right L4/5 TFESI TECHNIQUE: 5 views of the lumbar spine were acquired, including bilateral oblique views. COMPARISON: [facility], , XR LUMBAR SPINE 2-3V, 12/03/2022, 18:19. FINDINGS: Bones: There are 5 ejn-[id number] lumbar vertebral bodies. There is 36.6? left convex scoliosis centered at L2. Severe degenerative changes are present throughout the lumbar spine including intervertebral disc space narrowing, endplate sclerosis, osteophytosis and facet sclerosis. No spondylolisthesis. Soft tissues: Overlying bowel gas pattern is normal. No suspicious soft tissue calcifications. Oblique images: No pars defects where visualized. IMPRESSION: 1. Severe degenerative change throughout the lumbar spine. 2. Left convex scoliosis. 3. No spondylolysis or spondylolisthesis where visualized. However, severe degenerative change limits evaluation at the lumbosacral junction. Dictated by: Tess Ramirez M.D. on 11/19/2023 at 11:55 Approved by: Tess Ramirez M.D. on 11/19/2023 at 12:10
== END ==
PROVIDERS: PCP Internal Medicine; Referring Provider Physical Medicine & Rehabilitation; Visit Provider Physical Medicine & Rehabilitation
DX: M54.16 Radiculopathy, lumbar region (principal); M48.061 Spinal stenosis, lumbar region without neurogenic claudication; M48.07 Spinal stenosis, lumbosacral region; M41.9 Scoliosis, unspecified; Z98.890 Other specified postprocedural states
CPT/HCPCS: 72110; 72148

== ENCOUNTER → 2023-11-19 16:23 | Outpatient (CLI) | payer MEDICARE, OTHER, SELFPAY ==
[2023-07-09 19:59] VITALS: BMI 34.1
--- NOTE | 2023-11-19 16:24 | DI.RAD.S_ITS ---
PROCEDURE: XR SHOULDER RT MIN 2V INDICATIONS: RIGHT SHOULDER PAIN TECHNIQUE: 3 views of the shoulder were acquired. COMPARISON: [facility], CR, XR SHOULDER LT MIN 2V, 12/03/2022, 18:10. [facility], CR, XR SHOULDER RT MIN 2V, 03/19/2021, 11:15. FINDINGS: Bones: No fractures or dislocations. No suspicious bony lesions. Xqqq-[id number] degenerative change at the right AC joint. There is degenerative hypertrophy. Visualized ribs appear intact. Soft tissues: No suspicious soft tissue calcifications. Clips projecting over the right chest. IMPRESSION: [id number]-hbkcxrox right AC joint DJD. MRI could be considered for further evaluation. Dictated by: Shane Marie M.D. on 11/19/2023 at 17:10 Approved by: Shane Marie M.D. on 11/19/2023 at 17:12
== END ==
PROVIDERS: PCP Internal Medicine; Referring Provider Physical Medicine & Rehabilitation; Visit Provider Physical Medicine & Rehabilitation
DX: M25.511 Pain in right shoulder (principal); M19.011 Primary osteoarthritis, right shoulder
CPT/HCPCS: 73030

== ENCOUNTER 2023-12-04 15:15 | Outpatient (CLI) | payer MEDICARE, OTHER, SELFPAY ==
[2023-07-09 19:59] VITALS: BMI 34.1
[2023-12-04] VITALS (12 sets, daily range): BP systolic 90–182; BP diastolic 53–109; PULSE 63–76; RESP 12–24; TEMP 36.4; O2SAT 4–96
--- NOTE | 2023-12-04 16:00 | DI.RAD.S_ITS ---
PROCEDURE: PAIN L/S TRANSFORAMINAL INJECT INDICATIONS: Right L2-3 transforaminal ALE COMPARISON: None. FINDINGS: Fluoroscopic spot filming was performed to verify placement of spinal needles at the L2-L3 level(s), as labeled on the films. Appropriate location(s) of the needle tip(s) was confirmed by injection of iodinated contrast. IMPRESSION: Procedural image guidance at L2-L3. Please see op note full details. Dictated by: Arturo Hamlin M.D. on 12/05/2023 at 12:03 Approved by: Arturo Hamlin M.D. on 12/05/2023 at 12:03
[2023-12-04] MEDS: MIDAZOLAM 2 MG/2 ML VIAL IV (16:25)
[2023-12-04] MEDS: iopamidoL 15 ML VIAL 3 ML INJ (16:29)
[2023-12-04] MEDS: DEXAMETHASONE 10 MG/ML VIAL INJ (16:29)
[2023-12-04] MEDS: BUPIVACAINE 0.25% (PF) VIAL 2 ML INJ (16:30)
[2023-12-04] MEDS: BETAMETHASONE 30 MG/5 ML MDV 6 MG INJ (16:30)
[2023-12-04] MEDS: fentaNYL 100 MCG/2 ML INJ 50 MCG IV (16:36)
--- NOTE | 2023-12-04 16:46 | P.PCN_ITS ---
Date/Time/Diagnoses Date of procedure: 12/04/23 Time of procedure: 16:46 Pre-procedure diagnosis: 1. FORAMINAL STENOSIS WITH LE SYMPTOMS Post-procedure diagnosis: same Procedure Notes Procedure: 1. FLUOROSCOPICALLY GUIDED CONTRAST CONTROLLED TRANSFORAMINAL EPIDURAL STEROID INJECTION - RIGHT L2/3 TFESI Indications: Ciara is referred by Dr. Talamantes for treatment of Foraminal Stenosis with right LE Symptoms Physician: Mitchell Gonzalez Total Fluoroscopy time (seconds): 8 Total sedation minutes: 15 Complications: none Procedure in detail & Post-procedure care: FINDINGS Foraminal Nerve Root Compression secondary to disc disease and facet hypertrophy DESCRIPTION OF PROCEDURE Following review of allergy and review of potential side effects and complications, including, but not necessarily limited to, infection, allergic reaction, local tissue breakdown, stroke, temporary or permanent nerve injury, paralysis, and possible , the patient indicated that the patient understood and agreed to proceed. An informed consent document was signed by the patient, witnessed by a nurse, and placed in the patient's chart. Additionally, other treatment options including medications, modalities, and physical therapy were reviewed with the patient. After review of previous anaesthesic history and IV conscious sedation the patient was deemed safe to proceed with today?s procedure with IV conscious sedation as ASA class II designation. Safety time-out was performed to confirm patient ID, procedure to be performed and site of procedure. IV sedation was accomplished with a combination of 2mg of Versed and 50mcg of Fentanyl was administered by the RN after DO order, titrated to patient comfort during the course of the procedure while the patient remained responsive to all verbal commands In the prone position following sterile prep and drape of the lumbar region, the right L2/3 posterior neuroforamen was identified fluoroscopically. The skin was anesthetized via a 25-gauge 1.5-inch needle with 1% lidocaine solution. At this point, a 25-gauge 3.5-inch spinal needle was atraumatically introduced and advanced under fluoroscopic guidance through the posterior right L2/3 ne uroforamen to approximately the anterior aspect of the canal. Depth was confirmed on lateral view. Following negative aspiration, injection of approximately 1.5 cc of Isovue 200 under live fluoroscopy in the AP view confirmed excellent flow along the nerve root, into the epidural space without vascular or intrathecal uptake observed Radiological data, including multiple fluoroscopic views of the lumbosacral spine, reveal a spinal needle at the right L2/3 posterior neuroforamen. Subsequent views show flow of contrast material flowing superiorly and inferiorly along the nerve root confirming epidural flow. Subsequently, a test dose of 1.5 cc of 1% lidocaine solution was administered and patient was observed for two minutes for signs or symptoms of complications, including abdominal pain, shortness of breath, bilateral upper or lower extremity weakness, nausea and vomiting, prior to steroid injection. At this point, a total of 2cc or 10mg of dexamethasone and 6mg of betamethasone was injected without incident. The patient tolerated the procedure well without signs or symptoms of complications prior to transfer to the recovery area continued monitoring without incident. The patient was then transferred to the recovery area where they were observed for an appropriate time after the injection. The patient reported a VAS score of 8 prior to the procedure and a post-procedure VAS of 1. POST OP INSTRUCTIONS The patient was provided a Pain Log to continue to record their response to the target-specific procedure prior to follow-up visit with their referring physician. Additionally, specific post-injection care instructions and a contact number to our office were provided if concerns arise regarding possible complications associated with the procedure are suspected.
[2023-12-04] MEDS: SODIUM CHLORIDE 0.9% 500 ML 1000 ML IV (17:08)
--- NOTE | 2023-12-04 17:12 | PC.NURSE ---
1650 Patient received post injection with eyes closed, slow to respond to verbal. Attempted to transfer from to recliner with 3 person max assist. Transfer aborted due to patient inability to hold weight on her legs, assisted back to . BP 95/55 (see flowsheet). Dr. Gonzalez aware. 1700 BP 90/54. Dr. Gonzalez aware, order for 500 mL bolus initiated per order. Able to transfer patient to recliner with 3 person max assist. Patient remains drowsy. 1710 Dr. Gonzalez at chair side to re-evaluate pt. BP 106/63 with IVF infusing. Patient remains drowsy. Care ongoing.
--- NOTE | 2023-12-04 17:30 | PC.NURSE ---
Sedation Discharge Patient doing well with NS bolus. BP returning to patient's pre-sedation levels Q5mins for 15 minutes monitored by this RN. Dr. Gonzalez at patient's chair side at 1722. Verbal ok to stop NS bolus received and implemented by this RN.
== END 2023-12-04 17:25 | disposition home or self-care (01) ==
PROVIDERS: PCP Internal Medicine; Referring Provider Physical Medicine & Rehabilitation; Visit Provider Physical Medicine & Rehabilitation
DX: M48.061 Spinal stenosis, lumbar region without neurogenic claudication (principal); M51.16 Intervertebral disc disorders with radiculopathy, lumbar region; M47.26 Other spondylosis with radiculopathy, lumbar region
CPT/HCPCS: 64483; 99152; J0702; J1100; J2250; J3010; J3490

== ENCOUNTER → 2023-12-31 15:41 | Outpatient (CLI) | payer MEDICARE, OTHER, SELFPAY ==
[2023-12-31 15:31] VITALS: BMI 34.1
[2023-12-31 17:20] LABS: Add Manual Diff / Slide Review NO; Basophils Absolute Auto 100 /uL (0-100); Eosinophils Absolute Auto 300 /uL (0-450); Eosinophils Percent Auto 4.4 % (2-4); Hematocrit 32.7 % (36-46); Hemoglobin 10.2 g/dL (12.0-16.0); Lymphocytes Absolute Auto 1800 /uL (1100-4500); Lymphocytes Percent Auto 26.3 % (25-40); Mean Corpuscular HGB Conc 31.2 % (30-36); Mean Corpuscular Hemoglobin 23.8 PG (26-34); Mean Corpuscular Volume 76.1 fL (80-100); Monocytes Absolute Auto 500 /uL (0-900); Monocytes Percent Auto 7.5 % (3-14); Neutrophils Absolute Auto 4100 /uL (1500-7000); Neutrophils Percent Auto 60.8 % (50-75); Platelet Count 175 X10^3/uL (150-400); Red Cell Distribution Width 16.7 % (11.6-14.8); White Blood Cell Count 6.7 X10^3/uL (4.5-11.0)
[2023-12-31 18:01] LABS: Alanine Aminotransferase 12 IU/L (<35); Albumin 4.1 g/dL (3.5-5.0); Albumin Globulin Ratio 1.8 (1.0-2.8); Alkaline Phosphatase 88 U/L (38-126); Aspartate Aminotransferase 18 IU/L (14-36); BUN Creatinine Ratio 26.2 (6-22); Bilirubin Total 0.4 mg/dL (0.2-1.3); Blood Urea Nitrogen 38 mg/dL (7-17); Calcium 9.3 mg/dL (8.4-10.2); Carbon Dioxide 27 mmol/L (22-32); Chloride 103 mmol/L (98-107); Estimated Glomerular Filt Rate 34 mL/min (>60); Globulin 2.3 g/dL (1.7-4.1); Glucose 98 mg/dL (80-110); HEMOLYSIS < 15 (0-50); Potassium 4.5 mmol/L (3.4-5.1); Sodium 136 mmol/L (137-145); Total Protein 6.4 g/dL (6.3-8.2)
[2024-01-01 09:29] LABS: Iron 42 ug/dL (37-170)
[2024-01-01 09:37] LABS: Transferrin 324 mg/dL (206-381)
== END ==
PROVIDERS: PCP Internal Medicine; Referring Provider Internal Medicine; Visit Provider Internal Medicine
DX: I12.9 Hypertensive chronic kidney disease with stage 1 through stage 4 chronic kidney disease, or unspecified chronic kidney disease (principal); D64.9 Anemia, unspecified; N18.31 Chronic kidney disease, stage 3a
CPT/HCPCS: 36415; 80053; 83540; 84466; 85025

== ENCOUNTER 2024-04-19 00:36 | Emergency (ER) | payer MEDICARE, OTHER, SELFPAY ==
[2023-12-31 15:31] VITALS: BMI 34.1
[2024-04-19] VITALS (7 sets, daily range): BP systolic 138; BP diastolic 63; PULSE 70–80; RESP 18–25; TEMP 36.7; O2SAT 97–98; BMI 32.9
--- NOTE | 2024-04-19 00:48 | EKG_ITS ---
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
--- NOTE | 2024-04-19 00:55 | PC.NURSE ---
pt c/o 3 episodes of dizziness at home prior to coming to the ed denies any c/o then or now.
--- NOTE | 2024-04-19 01:31 | ED.ARRPALP ---
HPI - Arrhythmia/Palpitations General Chief Complaint: Arrhythmia/Palpitations Stated Complaint: tachy rhythms Time Seen by Provider: 04/19/24 00:38 Source: patient and family Mode of arrival: Wheelchair History of Present Illness HPI narrative: 88-year-old female. Has a history of atrial fibrillation. Is on apixaban. Here for evaluation of 3 separate episodes that occurred this evening. She states that she became acutely lightheaded. She stated that the symptoms lasted approximately 15 seconds and then resolved after she sat down. No chest pain. No palpitations during that time. No headache. She has been taking all of her medications as directed. She has had symptoms like this in the past. She recently had blood work done at her primary doctor. Related Data Home Medications Medication Instructions Recorded Confirmed latanoprost 0.005 % eye drops 1 gtt OP BEDTIME ##0 12/27/04/17/24 (Xalatan) acetaminophen 500 mg tablet 500 mg PO Q4H PRN Fever Or Pain 04/18/18 04/17/24 dorzolamide 22.3 mg-timolol 6.8 1 drp ophthalmic (eye) BID 04/18/18 04/17/24 mg/mL eye drops docusate sodium 250 mg capsule 250 mg PO DAILY PRN Constipation 09/26/18 04/17/24 loteprednol etabonate 0.25 % eye 1 drp EYE-RIGHT ONCE 06/25/23 04/17/24 drops,suspension (Eysuvis) spironolactone 25 mg tablet 12.5 mg PO DAILY 06/25/23 04/17/24 losartan 50 mg tablet 50 mg PO DAILY 04/17/24 04/17/24 Previous Rx's Medication Instructions Recorded gabapentin 600 mg tablet 600 mg PO TID PRN pain #270 tabs 10/10/22 apixaban 5 mg tablet (Eliquis) See Rx Instructions .Route 04/30/23 .COMPLEX #180 tabs duloxetine 30 mg capsule,delayed 30 mg PO DAILY #90 caps 05/14/23 release metoprolol succinate 100 mg 100 mg PO BID #180 tabs 05/14/23 tablet,extended release 24 hr tramadol 50 mg tablet 50 mg PO TID PRN pain #60 tabs 08/16/23 omeprazole 20 mg capsule,delayed See Rx Instructions .Route 09/12/23 release .COMPLEX #180 caps pramipexole 0.5 mg tablet 1 mg (2 x 0.5 mg) PO BEDTIME #180 09/20/23 tabs trazodone 50 mg tablet 100 mg (2 x 50 mg) PO BEDTIME #180 01/10/24 tabs furosemide 40 mg tablet 40 mg PO DAILY #90 tabs 03/10/24 levothyroxine 150 mcg tablet 150 mcg PO QAM #90 tabs 03/26/24 (Synthroid) Allergies Allergy/AdvReac Type Severity Reaction Status Date / Time aminobenzoic acid Allergy Intermediate PABA - lip Verified 04/17/24 15:21 swelling (in many sun blocks) brimonidine Allergy Intermediate Swelling Verified 04/17/24 15:21 of the Eye lisinopril [LISINOPRIL] Allergy Intermediate ANGIOEDEMA Verified 04/17/24 15:21 oxycodone Allergy Intermediate HIVES Verified 04/17/24 15:21 Sulfa (Sulfonamide Allergy Mild RASH Verified 04/17/24 15:21 Antibiotics) doxycycline AdvReac Mild PHOTOSENSIT Verified 04/17/24 15:21 IVITY Review of Systems Review of Systems ROS Unobtainable: All systems reviewed & are unremarkable except as noted in HPI and below Patient History Medical History Greater trochanteric bursitis of right hip Chronic renal failure (CRF), stage 3a Pulmonary hypertension Thoracic radiculopathy due to degenerative joint disease of spine Scoliosis Restrictive lung disease Hypertension Typical atrial flutter (07/31/17) Mixed hyperlipidemia (09/02/12) Essential hypertension Glaucoma (05/04/11) Obstructive sleep apnea syndrome (05/04/11) Acquired hypothyroidism (05/04/11) Surgical History Status post vaginal hysterectomy History of knee replacement Status post laminectomy History of nephrectomy History of total mastectomy (1998) Family History Sister Family history of breast cancer Sister Family history of colon cancer Sister Family history of ovarian cancer Family/Other Family history of colon cancer Social History marital status: number of children: 3 household members: spouse and children lives independently: Yes caregiver/support person: Yes (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) housing: house pets and animals: Yes education level: college occupational status: other 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 jordana/taoism: None travel history: over 6 months ago leisure activities: other Smoking Status: Never smoker Tobacco: How many years used: 0 quit status: quit date established second hand exposure: No alcohol intake: current substance use type: does not use Smoking Status: Never smoker alcohol intake frequency: 0-2 drinks per day Substance Use Type: does not use Exam Initial Vital Signs Initial Vital Signs: Vital Signs Pulse Rate 80 04/19/24 00:44 Pulse Oximetry 97 04/19/24 00:44 Const General: cooperative, comfortable and No ill appearing HENMT Head: normal to inspection and normocephalic Resp Effort & Inspection: normal respiratory effort Auscultation: clear to auscultation bilaterally Cardio Rate: regular rate Rhythm: regular rhythm Skin General: no rashes or lesions noted Neuro General: patient alert, patient awake, patient oriented x3 and moves all extremities Extrem General: No edema Course Orders Ordered: ED Orders 04/19/24 00:39 EKG-12 Lead Stat 04/19/24 00:48 Basic Metabolic Panel Stat Complete Blood Count AUTO DIFF Stat Magnesium Stat Vital Signs Vital signs: Vital Signs - 8 hr 04/19/24 00:44 04/19/24 00:46 04/19/24 00:46 Temperature Pulse Rate 80 80 Respiratory Rate Blood Pressure 138/63 Pulse Oximetry 97 97 Oxygen Delivery Method 04/19/24 00:50 04/19/24 01:00 04/19/24 01:30 Temperature 98.1 F Pulse Rate 74 74 71 Respiratory Rate 18 24 25 H Blood Pressure 138/63 Pulse Oximetry 97 97 98 Oxygen Delivery Method Room Air 04/19/24 02:00 04/19/24 02:30 Temperature Pulse Rate 70 77 Respiratory Rate 23 Blood Pressure Pulse Oximetry 98 97 Oxygen Delivery Method MDM - Arrhythmia/Palpitations Medical Records Attestation: I reviewed the patient's medical records. Lab Data Attestation: I reviewed the patient's lab results. 04/19/24 00:48 04/19/24 00:48 Labs: Lab Results 04/19/24 Range/Units 00:48 WBC 8.0 (4.5-11.0) X10^3/uL RBC 4.55 (4.0-5.2) X10^6/uL Hgb 11.1 L (12.0-16.0) g/dL Hct 35.2 L (36-46) % MCV 77.4 L (80-100) fL MCH 24.4 L (26-34) PG MCHC 31.5 (30-36) % RDW 19.0 H (11.6-14.8) % Plt Count 149 L (150-400) X10^3/uL Neut % (Auto) 64.0 (50-75) % Lymph % (Auto) 23.9 L (25-40) % [place] % (Auto) 8.9 (3-14) % Eos % (Auto) 2.6 (2-4) % Baso % (Auto) 0.6 (0-2) % Neut # (Auto) 5100 (5022-5427) /uL Lymph # (Auto) 1900 (3984-9219) /uL [place] # (Auto) 700 (0-900) /uL Eos # (Auto) 200 (0-450) /uL Baso # (Auto) 100 (0-100) /uL Sodium 134 L (137-145) mmol/L Potassium 4.1 (3.4-5.1) mmol/L Chloride 102 (98-107) mmol/L Carbon Dioxide 23 (22-32) mmol/L BUN 51 H (7-17) mg/dL Creatinine 1.59 H (0.52-1.04) mg/dL Estimated GFR 31 L (>60) mL/min BUN/Creatinine Ratio 32.1 H (6-22) Glucose 136 H (80-110) mg/dL Calcium 10.2 (8.4-10.2) mg/dL Magnesium 2.0 (1.6-2.3) mg/dL ECG Data Attestation: I personally reviewed and interpreted this ECG as follows: Interpretation: Sinus rhythm Ventricular rate is 78 First-degree AV block UT interval of [address] T wave changes MDM Narrative Medical decision making narrative: Since arrival here in the emergency department she reports that her symptoms have resolved. No fevers. Labs are baseline from about 36 hours ago. Sinus rhythm on the EKG. No ectopy since being here. Ambulated around the emergency department. Discharge patient home with instructions to contact her primary doctor and pressure vessel inspector to discuss the possibility of Holter monitor. She was given return precautions and follow-up instructions. She expressed understanding and agreement with plan. Discharge Plan Departure Patient Disposition: Home Clinical Impression: Lightheadedness Instructions: DI for Dizziness-Nonvertigo Activity Restrictions/Additional Instructions: Continue to take all of your medications as directed. If your symptoms continue you may need to talk with your primary doctor or your pressure vessel inspector to discuss the indications for a Holter monitor. Return to the emergency department for new symptoms. Prescriptions: No Action latanoprost [Xalatan] 0.005 % drops 1 gtt OP BEDTIME Qty: 0 gabapentin 600 mg tablet 600 mg PO TID PRN (Reason: pain) Qty: 270 3RF Eliquis 5 mg tablet See Rx Instructions .ROUTE .COMPLEX Qty: 180 0RF Dose Instruction: TAKE 1 TABLET TWICE DAILY Rx Instructions: TAKE 1 TABLET TWICE DAILY metoprolol succinate 100 mg tablet extended release 24 hr 100 mg PO BID Qty: 180 3RF duloxetine 30 mg capsule,delayed release(DR/EC) 30 mg PO DAILY Qty: 90 3RF tramadol 50 mg tablet 50 mg PO TID PRN (Reason: pain) Qty: 60 2RF omeprazole 20 mg capsule,delayed release(DR/EC) See Rx Instructions .ROUTE .COMPLEX Qty: 180 3RF Dose Instruction: TAKE 1 CAPSULE TWICE DAILY Rx Instructions: TAKE 1 CAPSULE TWICE DAILY pramipexole 0.5 mg tablet 1 mg PO BEDTIME Qty: 180 3RF trazodone 50 mg tablet 100 mg PO BEDTIME Qty: 180 3RF furosemide 40 mg tablet 40 mg PO DAILY Qty: 90 3RF levothyroxine [Synthroid] 150 mcg tablet 150 mcg PO QAM Qty: 90 3RF Eysuvis 0.25 % drops,suspension 1 drp EYE-RIGHT ONCE spironolactone 25 mg tablet 12.5 mg PO DAILY losartan 50 mg tablet 50 mg PO DAILY docusate sodium 250 mg Capsule 250 mg PO DAILY PRN (Reason: Constipation) dorzolamide-timolol 22.3-6.8 mg/mL drops 1 drp ophthalmic (eye) BID acetaminophen 500 mg Tablet 500 mg PO Q4H PRN (Reason: Fever Or Pain) Referrals: Vincenzo Talamantes MD [Primary Care Provider] - Stand Alone Forms: Patient Portal/API
[2024-04-19 02:01] LABS: Add Manual Diff / Slide Review NO; Basophils Absolute Auto 100 /uL (0-100); Basophils Percent Auto 0.6 % (0-2); Eosinophils Absolute Auto 200 /uL (0-450); Eosinophils Percent Auto 2.6 % (2-4); Hematocrit 35.2 % (36-46); Hemoglobin 11.1 g/dL (12.0-16.0); Lymphocytes Absolute Auto 1900 /uL (1100-4500); Lymphocytes Percent Auto 23.9 % (25-40); Mean Corpuscular HGB Conc 31.5 % (30-36); Mean Corpuscular Hemoglobin 24.4 PG (26-34); Mean Corpuscular Volume 77.4 fL (80-100); Monocytes Absolute Auto 700 /uL (0-900); Monocytes Percent Auto 8.9 % (3-14); Neutrophils Absolute Auto 5100 /uL (1500-7000); Platelet Count 149 X10^3/uL (150-400); Red Blood Cell Count 4.55 X10^6/uL (4.0-5.2)
[2024-04-19 02:05] LABS: BUN Creatinine Ratio 32.1 (6-22); Blood Urea Nitrogen 51 mg/dL (7-17); Calcium 10.2 mg/dL (8.4-10.2); Carbon Dioxide 23 mmol/L (22-32); Chloride 102 mmol/L (98-107); Estimated Glomerular Filt Rate 31 mL/min (>60); Glucose 136 mg/dL (80-110); HEMOLYSIS < 15 (0-50); Potassium 4.1 mmol/L (3.4-5.1); Sodium 134 mmol/L (137-145)
== END 2024-04-19 02:52 | disposition home or self-care (01) ==
PROVIDERS: Emergency Provider Emergency Medicine; PCP Internal Medicine
DX: R42 Dizziness and giddiness (principal); I44.0 Atrioventricular block, first degree; I48.91 Unspecified atrial fibrillation; Z79.01 Long term (current) use of anticoagulants
CPT/HCPCS: 36415; 80048; 83735; 85025; 93005; 93010; 99283; 99284

== ENCOUNTER → 2024-04-23 15:09 | Outpatient (CLI) | payer MEDICARE, OTHER, SELFPAY ==
[2023-12-31 15:31] VITALS: BMI 34.1
== END ==
LOC: CAR 15:09
PROVIDERS: Family Provider Internal Medicine; PCP Internal Medicine; Referring Provider Internal Medicine; Visit Provider Internal Medicine
DX: R00.0 Tachycardia, unspecified (principal)
CPT/HCPCS: 93246